=== PATIENT | female | born 1945 | race Caucasian/White ===

== ENCOUNTER → 2017-03-12 | Outpatient (CLI) | payer BC ==
[~2017-03-12] MED LIST: AMLODIPINE PO; AMOX875T PO; ASPCH81X PO; ASPI81TA28 PO; ATEN-175 PO; ATEN100T PO; ATEN50TA PO; AZIT-57 PO; BRIM0.2S OPR; CHOL100010 PO; CIME-56 PO; CIMETIDINE PO; DIPH25CA5 PO; KETO0.5S33 OPL; MAGNESIUM W/ZINC PO; MOME0.1C33 TOP; NATURAL LAXATIVE PO; OMEG10007 PO; POTA-74 PO; POTA10CA28 PO; PRED1SUS3 OPL; PRED1SUS3 OPR; SENNTAB23 PO; SODI5SOL4 OPR; TRIATAB3 PO; ZNTT/150 PO
--- NOTE | 2017-03-12 14:56 | MAMMOGRAPHY REPORT ---
BILATERAL DIGITAL SCREENING MAMMOGRAM WITH CAD: 03/12/2017 CLINICAL HISTORY: Routine screening. Patient has no complaints. TECHNIQUE: Current study was also evaluated with a Computer Aided Detection (CAD) system. Bilatera l CC and MLO views were obtained. COMPARISON: Comparison is made to exams dated: 03/11/2016 mammogram, 03/06/2015 mammogram, 03/05/2014 mammogram, 03/02/2013 mammogram, 02/29/2012 mammogram, and 02/25/2011 mammogram - [facility]. BREAST COMPOSITION: The tissue of both breasts is extremely dense, which lowers the sensitivity of mammography. FINDINGS: No suspicious masses, calcifications, or areas of architectural distortion are noted in e ither breast. There has been no significant interval change compared to prior exams. Linear scar ma rkers denote scars on bilateral anterior breasts. Scattered bilateral benign-appearing calcificatio ns are not significantly changed. Nodular asymmetry in the left medial breast on the cc view is sta ble dating back to at least the 2009 exam. IMPRESSION: ACR BI-RADS CATEGORY 2: BENIGN There is no mammographic evidence of malignancy. A 1 year screening mammogram is recommended. The p atient will receive written notification of the results. Approximately 10% of breast cancers are not detected with mammography. A negative mammographic repor t should not delay biopsy if a clinically suggestive mass is present. Camila Lorenzo M.D. /:03/12/2017 11:54:36 Auto Dismantler: Lexie William, [facility] letter sent: Normal 1/2 BI-RADS Code: ACR BI-RADS Category 2: Benign
== END | disposition home or self-care (01) ==
LOC: C.MAMM 09:30
PROVIDERS: ATTEND Internal Medicine Pulmonary Disease
DX: Z12.31 Encounter for screening mammogram for malignant neoplasm of breast (principal)

== ENCOUNTER → 2017-07-27 | Outpatient (CLI) | payer BC ==
[~2017-07-27] MED LIST changes: -ATEN-175 PO; -AZIT-57 PO; +BND25 PO; -CHOL100010 PO; -DIPH25CA5 PO; -MAGNESIUM W/ZINC PO; -NATURAL LAXATIVE PO; -OMEG10007 PO; -SENNTAB23 PO; -ZNTT/150 PO; +ZTHM250 PO
[2017-07-27 12:08] LABS: BASO % 0.2 %; BASO ABS # 0.02 K/uL (0-0.2); COMPLETE YES; EOS % 2.1 %; HEMATOCRIT 39.3 % (37-47); IG% 0.2 %; LYMPH % 31.1 %; LYMPH ABS # 2.52 K/uL (1.2-3.4); MEAN CELL VOLUME 87.1 fL (80-100); MEAN CORPUSCULAR HEMOGLOBIN 29.7 pg (25-34); MEAN CORPUSCULAR HGB CONC 34.1 g/dl (32-36); MEAN PLATELET VOLUME 10.3 fL (7.4-10.4); MONO % 7.4 %; PLATELET COUNT 259 K/uL (130-400); RED BLOOD COUNT 4.51 M/uL (4.2-5.4)
[2017-07-27 12:14] LABS: URINE APPEARANCE CLEAR (CLEAR); URINE BILIRUBIN NEG (NEG); URINE COLOR YELLOW; URINE NITRITE NEG (NEG); URINE PH 7.5 (4.5-7.5); URINE SPECIFIC GRAVITY 1.019 (1.000-1.030); UROBILINOGEN NEG (NEG)
[2017-07-27 12:26] LABS: MANUAL MICROSCOPIC REQUIRED? NO; REVIEW REQ? NO
[2017-07-27 12:27] LABS: ALT/SGPT 22 U/L (12-78); BLOOD UREA NITROGEN 16 mg/dl (7-18); BUN/CREATININE RATIO 20.4 (10-20); CARBON DIOXIDE 31 mmol/L (21-32); CHLORIDE 96 mmol/L (98-107); CHOLESTEROL 303 mg/dl (0-200); CREATININE 0.76 mg/dl (0.60-1.20); GLUCOSE 91 mg/dl (70-99); POTASSIUM 3.2 mmol/L (3.5-5.1); SODIUM 133 mmol/L (136-145); TRIGLYCERIDES 216 mg/dl (0-150); VERY LOW DENSITY LIPOPROT CALC 43 mg/dl
[2017-07-27 12:37] LABS: ALKALINE PHOSPHATASE 68 U/L (45-117); AST/SGOT 20 U/L (15-37); CHOLESTEROL/HDL RATIO 5.8; HDL CHOLESTEROL 52 mg/dl; LDL CHOLESTEROL CALCULATED 208 mg/dl
[2017-07-27 13:01] LABS: LYME DISEASE AB IGG NEG (NEG); LYME DISEASE AB IGM NEG (NEG)
--- NOTE | 2017-08-05 10:40 | CODING QUERY MEDICAL NECESSITY ---
SUPPORTING DIAGNOSIS NEEDED A supporting diagnosis is required for the test/procedure performed on this patient in order for us to be reimbursed by the patient's insurance. Please provide a supporting diagnosis for the following test/procedure listed below next to the test name along with your signature. *If there is no additional diagnosis for this patient that would support the following test/procedure please document that below next to the test/procedure. Test(s)/Procedure(s) that require a supporting diagnosis: * VITAMIN D, 25-HYDROXY DIAGNOSIS: Provider Signature: Date: Thank you Silvia Charlton [facility] Information Management Once completed, please kindly fax back to [phone] For questions please call [phone]
== END | disposition home or self-care (01) ==
LOC: C.LAB1850 10:40
PROVIDERS: ATTEND Internal Medicine Pulmonary Disease
DX: I10 Essential (primary) hypertension (principal); E78.5 Hyperlipidemia, unspecified; K21.9 Gastro-esophageal reflux disease without esophagitis; R10.13 Epigastric pain; R53.83 Other fatigue

== ENCOUNTER → 2017-08-18 | Outpatient (CLI) | payer BC ==
[~2017-08-18] MED LIST changes: -AMOX875T PO; -ASPI81TA28 PO; -ATEN50TA PO; -BRIM0.2S OPR; -CIME-56 PO; -KETO0.5S33 OPL; -POTA-74 PO; -PRED1SUS3 OPL; -PRED1SUS3 OPR; -SODI5SOL4 OPR; -ZTHM250 PO
[2017-08-18 12:49] LABS: BASO % 0.1 %; BASO ABS # 0.02 K/uL (0-0.2); COMPLETE YES; EOS % 0.7 %; HEMATOCRIT 37.4 % (37-47); IG% 0.1 %; LYMPH % 16.8 %; LYMPH ABS # 2.31 K/uL (1.2-3.4); MEAN CELL VOLUME 86.6 fL (80-100); MEAN CORPUSCULAR HEMOGLOBIN 29.9 pg (25-34); MEAN CORPUSCULAR HGB CONC 34.5 g/dl (32-36); MEAN PLATELET VOLUME 10.1 fL (7.4-10.4); MONO % 8.9 %; NEUT % 73.4 %; PLATELET COUNT 222 K/uL (130-400); RED BLOOD COUNT 4.32 M/uL (4.2-5.4); WHITE BLOOD COUNT 13.76 K/uL (4.8-10.8)
[2017-08-18 14:14] LABS: ALT/SGPT 18 U/L (12-78); AST/SGOT 10 U/L (15-37); BLOOD UREA NITROGEN 17 mg/dl (7-18); BUN/CREATININE RATIO 15.3 (10-20); CALCIUM 9.9 mg/dl (8.5-10.1); CARBON DIOXIDE 29 mmol/L (21-32); CHLORIDE 96 mmol/L (98-107); GLUCOSE 98 mg/dl (70-99); POTASSIUM 3.8 mmol/L (3.5-5.1); SODIUM 133 mmol/L (136-145)
[2017-08-18 14:16] LABS: ALB/GLOB RATIO 0.9 (0.9-2); ALKALINE PHOSPHATASE 66 U/L (45-117)
--- NOTE | 2017-08-18 14:33 | DIAGNOSTIC IMAGING REPORT ---
ABD/PELVIS ORAL CONT ONLY CLINICAL HISTORY: 71 years-old Female presenting with ACUTE DIVERTICULITIS, FEVER, PAIN, NAUSEA,. TECHNIQUE: Multidetector CT of the abdomen and pelvis was performed without the use of intravenous contrast. IV contrast: None. A dose lowering technique was used consistent with the principles of ALARA (as low as reasonably achievable). COMPARISON: 10/06/2016. CT DOSE (mGy.cm): The estimated cumulative dose is 368.17 mGy.cm. FINDINGS: Instructional Material Director topogram: Unremarkable. Lung bases: Minimal dependent changes likely atelectasis. Normal heart size. No pericardial or pleural effusion. Liver: Normal morphology. Multiple well-defined hypodensities unchanged from prior CT, likely hepatic cysts. Biliary: No gross biliary ductal dilatation allowing for noncontrast technique. Normal gallbladder. Pancreas: Mild parenchymal atrophy. Spleen: Normal noncontrast appearance. Adrenal glands: Normal noncontrast appearance. Kidneys and ureters: Normal. No hydronephrosis. Bladder: Normal. Pelvic organs: Uterus surgically absent. No adnexal masses. Bowel: Diverticulosis of the sigmoid colon with focal wall thickening and pericolonic inflammatory change at the junction of the descending and sigmoid colon. Soft tissue density extending out from the posterior aspect into the mesentery (series 3 image 287). No well-defined fluid collection. No bowel obstruction. Normal appendix. Peritoneal cavity: Retroperitoneal stranding in the left lower quadrant and extending into the extraperitoneal left pelvic sidewall. No free intraperitoneal gas or fluid. Lymph nodes: No gross lymphadenopathy allowing for noncontrast technique. Vasculature: Atherosclerosis of the normal caliber abdominal aorta. Abdominal wall: Normal. Musculoskeletal: Chondrocalcinosis of the pubic symphysis. Degenerative changes of the lumbar spine. IMPRESSION: 1. Findings most consistent with diverticulitis at the junction of the descending and sigmoid colon. Phlegmonous changes are apparent without a well-defined abscess formation. No CT evidence of eliceo perforation. Follow-up colonoscopy after treatment is recommended to exclude the possibility of an underlying neoplasm. No lymphadenopathy. Electronically signed by: Eliezer Reyes M.D. 08/18/2017 2:32 PM Dictated Date/Time: 08/18/2017 2:25 PM
== END ==
LOC: C.CTS 12:00
PROVIDERS: ATTEND Registered Nurse
DX: K57.92 Diverticulitis of intestine, part unspecified, without perforation or abscess without bleeding (principal)

== ENCOUNTER 2017-08-27 20:14 | Observation (INO) | payer BC, OTHER ==
[~2017-08-27] VITALS: Ht 154.9 cm; Wt 55.6 kg
[2017-08-27] MEDS ORDERED: FENTANYL CITRATE INJ 50 MCG/1 ML 2 ML VIAL IV STA (21:10)
[2017-08-27] MEDS ORDERED: SODIUM CHLORIDE 0.9% 1000ML 1,000 ML IV STA (21:10)
[2017-08-27] MEDS ORDERED: ONDANSETRON INJ 2 MG/ML 2 ML VIAL IV STA (21:10)
[2017-08-27] MEDS ORDERED: ASPIRIN 81 MG CHEW PO STA (21:10)
[2017-08-27] MEDS ORDERED: OPTIRAY 320 IV PRN (21:15)
[2017-08-27 21:19] LABS: BASO % 0.3 %; BASO ABS # 0.03 K/uL (0-0.2); COMPLETE YES; EOS % 1.4 %; HEMATOCRIT 35.5 % (37-47); IG% 0.3 %; LYMPH % 26.6 %; LYMPH ABS # 2.72 K/uL (1.2-3.4); MEAN CELL VOLUME 85.3 fL (80-100); MEAN CORPUSCULAR HEMOGLOBIN 28.8 pg (25-34); MEAN CORPUSCULAR HGB CONC 33.8 g/dl (32-36); MEAN PLATELET VOLUME 9.6 fL (7.4-10.4); MONO % 10.3 %; NEUT % 61.1 %; PLATELET COUNT 294 K/uL (130-400); RED BLOOD COUNT 4.16 M/uL (4.2-5.4); WHITE BLOOD COUNT 10.22 K/uL (4.8-10.8)
[2017-08-27 21:31] LABS: BLOOD UREA NITROGEN 16 mg/dl (7-18); BUN/CREATININE RATIO 12.3 (10-20); CALCIUM 9.5 mg/dl (8.5-10.1); CARBON DIOXIDE 32 mmol/L (21-32); CHLORIDE 100 mmol/L (98-107); GLUCOSE 93 mg/dl (70-99); POTASSIUM 3.4 mmol/L (3.5-5.1); SODIUM 137 mmol/L (136-145)
--- NOTE | 2017-08-27 21:50 | DIAGNOSTIC IMAGING REPORT ---
SINGLE VIEW CHEST CLINICAL HISTORY: Atypical chest pain. FINDINGS: An AP, portable, upright chest radiograph is compared to study dated 08/25/2012. The examination is degraded by portable technique and patient rotation. The heart is top normal for projection and there is atherosclerotic calcification of the thoracic aorta. Chronic residual thickening is similar to previous. There is left bibasilar atelectasis, left greater than right. No airspace consolidation is seen typical for pneumonia and there is no large pleural effusion. No pneumothorax is seen. The skeletal structures are osteopenic. The bony thorax is grossly intact. IMPRESSION: No acute cardiopulmonary abnormality. Electronically signed by: Jose Cruz Snyder M.D. 08/27/2017 9:49 PM Dictated Date/Time: 08/27/2017 9:48 PM
--- NOTE | 2017-08-27 22:15 | DIAGNOSTIC IMAGING REPORT ---
CT ANGIOGRAM OF THE CHEST CLINICAL HISTORY: Atypical chest pain. COMPARISON STUDY: Chest x-ray dated 08/27/2017. TECHNIQUE: Following the IV administration of 85 cc of Optiray 320, CT angiogram of the chest was performed from the upper abdomen to the thoracic inlet utilizing the pulmonary embolus protocol. Images are reviewed in the axial, sagittal, and coronal planes. 3-D MIPS images are created and assessed. IV contrast was administered without complication. A dose lowering technique was utilized adhering to the principles of ALARA. CT DOSE: 174.02 mGy.cm FINDINGS: Thyroid: Imaged portions of the thyroid gland are normal in size and attenuation. Thoracic aorta: There is atherosclerotic calcification of the thoracic aorta, with is normal in caliber and demonstrates standard 3-vessel arch anatomy. No dissection is seen. Pulmonary vasculature: The pulmonary trunk is normal in caliber. There are no filling defects identified in main, lobar, or segmental pulmonary branches to suggest pulmonary embolus. Heart: The heart is top normal in size and without pericardial effusion. Lungs and pleural spaces: The trachea and central airways are clear. There are trace pleural effusions. Patchy airspace consolidation is seen at the left lung base. Atelectasis is noted at the right lung base. Mediastinum: There is no mediastinal lymphadenopathy. Jessica: Clear. Axillae: There is no axillary lymphadenopathy. Upper abdomen: There is a tiny hiatal hernia. Scattered hepatic cysts measure up to 1.8 cm. Skeletal structures: The skeletal structures are osteopenic. Mild degenerative change is seen throughout the thoracic spine. A large hemangioma is noted in the body of T7. No lytic or blastic bony lesions are seen. IMPRESSION: 1. There is no evidence of pulmonary embolus in the main, lobar, or segmental pulmonary arteries. 2. Dependent patchy airspace consolidation at the left lung base likely represents pneumonia. Clinical correlation will be required and radiographic follow-up to resolution is recommended. 3. Trace pleural effusions. 4. Additional findings as above. Electronically signed by: Jose Cruz Snyder M.D. 08/27/2017 10:13 PM Dictated Date/Time: 08/27/2017 10:08 PM
[2017-08-27] MEDS ORDERED: PIPERACILLIN/TAZOBACTAM 4.5 GM/100ML D5W IV STA (22:19)
[2017-08-27] MEDS ORDERED: SODI5SOL4 OPR (22:29)
[2017-08-27] MEDS ORDERED: CIME-56 PO (22:29)
[2017-08-27] MEDS ORDERED: AMOX875T PO (22:29)
[2017-08-27] MEDS ORDERED: POTA-74 PO (22:29)
[2017-08-27] MEDS ORDERED: BRIM0.2S OPR (22:29)
[2017-08-27] MEDS ORDERED: KETO0.5S33 OPL (22:29)
[2017-08-27] MEDS ORDERED: PRED1SUS3 OPL (22:29)
[2017-08-27] MEDS ORDERED: PRED1SUS3 OPR (22:29)
[2017-08-27] MEDS ORDERED: ASPI81TA28 PO (22:29)
[2017-08-27] MEDS ORDERED: ATEN50TA PO (22:29)
[2017-08-28] VITALS (10 sets, daily range): BP systolic 121–165; BP diastolic 71–76; PULSE 59–84; TEMP 36.5–37.2; O2SAT 94–97; Ht 154.9 cm; Wt 55.6 kg
[2017-08-28] MEDS ORDERED: ONDANSETRON INJ 2 MG/ML 2 ML VIAL IV PRN
[2017-08-28] MEDS ORDERED: MoRPHine SULFATE 2 MG/ML CARP IV PRN
[2017-08-28] MEDS ORDERED: MAGNESIUM HYDROXIDE SUSP 30 ML UDC PO PRN
[2017-08-28] MEDS ORDERED: POLYETHYLENE (MIRALAX) 17 GM PACK PO PRN
[2017-08-28] MEDS ORDERED: ALUMINUM/MAGNESIUM/SIMETH (MAALOX MAX) 30 ML UDC PO PRN
[2017-08-28] MEDS ORDERED: ACETAMINOPHEN 325 MG TAB PO PRN
[2017-08-28] MEDS ORDERED: NITROGLYCERIN 0.4 MG SL PER TAB CHARGE SL PRN
--- NOTE | 2017-08-28 00:22 | EMERGENCY ROOM VISIT NOTE ---
History Report prepared by Jess: Salvador Butler Under the Supervision of: Dr. Darrick Jones D.O. First contact with patient: 20:54 Chief Complaint: CHEST PAIN Stated Complaint: CHEST PAIN Nursing Triage Summary: Patient ambulatory to triage for evaluation of chest pain that began last evening. Patient has been taking antacids since that time. Patient also took Advil 200mg about 1.5 hours ago. Patient reports intermittent nausea throughout the day with the pain. Patient reports that the pain is radiating straight through into her back, up into the left shoulder and down the left arm. Patient reports that the pain "is like a big cramp in my chest." "A couple of times I felt a little light headed. I was having a hard time getting my breath this evening. I have a sharp pain when I try to take a deep breath." Patient reports Wednesday and Wednesday night, having severe chest pains. History of Present Illness The patient is a 71 year old female who presents to the Emergency Room with complaints of intermittent, sharp, chest pain beginning four days ago. The patient states she was not doing much for the past few days because she is currently being treated for acute diverticulitis. She reports she is being treated with Augmentin and believes this is the cause for her symptoms. The patient notes her discomfort started last night when she was watching TV. She states it started in her right shoulder and then went down her arm. The patient report that her pain has been worsening since. She notes exertion does not change her discomfort, but breathing does increase her discomfort. The patient states she had a catheterization five year ago, and it was clean. She reports she has a history of hypertension and hyperlipidemia. The patient notes she usually exercises, and she does not experience these symptoms. Patient denies swelling of calves, recent trips, history of immobilization or recent surgery, prior history of DVT, hemoptysis, history of malignancy, history of smoking, cough, runny nose, sorethroat, any upper respiratory symptoms or control/ estrogen use Source of History: patient Onset: four days ago Position: chest Quality: sharp Timing: intermittent Modifying Factors (Worsening): breathing Note: Associated symptoms: right shoulder and arm pain Review of Systems See HPI for pertinent positives & negatives. A total of 10 systems reviewed and were otherwise negative. Past Medical & Surgical Medical Problems: (1) Chest pain (2) HTN (hypertension) (3) Stomach problems (4) Ulcer (5) Urinary problem Family History Cancer Heart disease Hypertension Social History Smoking Status: Never Smoker Smokeless Tobacco Use: No Alcohol Use: none Marital Status: Housing Status: lives with significant other Current/Historical Medications Scheduled Amoxicillin & Pot Clavulanate (Augmentin 875-125 mg), 1 TAB PO BID Aspirin (Aspirin Ec), 81 MG PO DAILY Atenolol (Tenormin), 25 MG PO DAILY Brimonidine Tartrate-Timolol M (Combigan), 1 DROP OPR QAM Cimetidine (Tagamet), 400 MG PO BID Ketorolac Tromethamine (Ophth) (Acular Oph), 1 DROP OPL BID Potassium Chloride (Potassium Chloride Er), 10 MEQ PO BID Prednisolone Acetate (Ophth) (Pred Forte 1% Oph), 1 DROP OPL BID Prednisolone Acetate (Ophth) (Pred Forte 1% Oph), 1 DROP OPR TID Sodium Chloride Hypertonic (Elle 128), 1 DROP OPR HS Triamterene/Hctz (Triamterene/Hctz 37.5-25MG), 1 TAB PO DAILY Scheduled PRN Diphenhydramine Hcl (Benadryl), 25 MG PO HS PRN for Sleep Allergies Coded Allergies: Ciprofloxacin (Verified Allergy, Intermediate, Nausea, weakness, 08/27/17) Codeine (Verified Allergy, Intermediate, Vomiting, 08/27/17) Statins (Verified Allergy, Intermediate, Hives, rash, 08/27/17) Physical Exam Vital Signs Date Time Temp Pulse Resp B/P (MAP) Pulse Ox O2 Delivery O2 Flow Rate FiO2 08/28/17 00:29 69 20 121/66 95 Room Air 08/27/17 22:43 69 20 147/65 96 Room Air 08/27/17 21:38 71 20 160/74 99 Room Air 08/27/17 20:23 98 Room Air 08/27/17 20:23 36.7 73 20 187/79 98 Room Air Physical Exam GENERAL: Sitting up in bed, alert, well appearing, well nourished, no distress, non-toxic EYE EXAM: normal conjunctiva OROPHARYNX: no exudate, no erythema, lips, buccal mucosa, and tongue normal and mucous membranes are moist NECK: supple, no nuchal rigidity, no adenopathy, non-tender LUNGS: Clear to auscultation. Normal chest wall mechanics HEART: no murmurs, S1 normal and S2 normal ABDOMEN: abdomen soft, non-tender, normo-active bowel sounds, no masses, no rebound or guarding. BACK: Back is symmetrical on inspection and there is no deformity, no midline tenderness, no CVA tenderness. SKIN: no rashes and no bruising UPPER EXTREMITIES: upper extremities are grossly normal. LOWER EXTREMITIES: No pitting edema. Calves are equal bilaterally. NEURO EXAM: Normal sensorium, cranial nerves II-XII grossly intact, normal speech, no gross weakness of arms, no gross weakness of legs. Medical Decision & Procedures ER Provider Diagnostic Interpretation: Radiology results as stated below per my review and the radiologist's interpretation: CT ANGIOGRAM OF THE CHEST CLINICAL HISTORY: Atypical chest pain. COMPARISON STUDY: Chest x-ray dated 08/27/2017. TECHNIQUE: Following the IV administration of 85 cc of Optiray 320, CT angiogram of the chest was performed from the upper abdomen to the thoracic inlet utilizing the pulmonary embolus protocol. Images are reviewed in the axial, sagittal, and coronal planes. 3-D MIPS images are created and assessed. IV contrast was administered without complication. A dose lowering technique was utilized adhering to the principles of ALARA. CT DOSE: 174.02 mGy.cm FINDINGS: Thyroid: Imaged portions of the thyroid gland are normal in size and attenuation. Thoracic aorta: There is atherosclerotic calcification of the thoracic aorta, with is normal in caliber and demonstrates standard 3-vessel arch anatomy. No dissection is seen. Pulmonary vasculature: The pulmonary trunk is normal in caliber. There are no filling defects identified in main, lobar, or segmental pulmonary branches to suggest pulmonary embolus. Heart: The heart is top normal in size and without pericardial effusion. Lungs and pleural spaces: The trachea and central airways are clear. There are trace pleural effusions. Patchy airspace consolidation is seen at the left lung base. Atelectasis is noted at the right lung base. Mediastinum: There is no mediastinal lymphadenopathy. Jessica: Clear. Axillae: There is no axillary lymphadenopathy. Upper abdomen: There is a tiny hiatal hernia. Scattered hepatic cysts measure up to 1.8 cm. Skeletal structures: The skeletal structures are osteopenic. Mild degenerative change is seen throughout the thoracic spine. A large hemangioma is noted in the body of T7. No lytic or blastic bony lesions are seen. IMPRESSION: 1. There is no evidence of pulmonary embolus in the main, lobar, or segmental pulmonary arteries. 2. Dependent patchy airspace consolidation at the left lung base likely represents pneumonia. Clinical correlation will be required and radiographic follow-up to resolution is recommended. 3. Trace pleural effusions. 4. Additional findings as above. Electronically signed by: Jose Cruz Snyder M.D. 08/27/2017 10:13 PM Dictated Date/Time: 08/27/2017 10:08 PM SINGLE VIEW CHEST CLINICAL HISTORY: Atypical chest pain. FINDINGS: An AP, portable, upright chest radiograph is compared to study dated 08/25/2012. The examination is degraded by portable technique and patient rotation. The heart is top normal for projection and there is atherosclerotic calcification of the thoracic aorta. Chronic residual thickening is similar to previous. There is left bibasilar atelectasis, left greater than right. No airspace consolidation is seen typical for pneumonia and there is no large pleural effusion. No pneumothorax is seen. The skeletal structures are osteopenic. The bony thorax is grossly intact. IMPRESSION: No acute cardiopulmonary abnormality. Electronically signed by: Jose Cruz Snyder M.D. 08/27/2017 9:49 PM Dictated Date/Time: 08/27/2017 9:48 PM Laboratory Results 08/27/17 20:45 Red Blood Count 4.16, Mean Corpuscular Volume 85.3, Mean Corpuscular Hemoglobin 28.8, Mean Corpuscular Hemoglobin Concent 33.8, Mean Platelet Volume 9.6, Neutrophils (%) (Auto) 61.1, Lymphocytes (%) (Auto) 26.6, Monocytes (%) (Auto) 10.3, Eosinophils (%) (Auto) 1.4, Basophils (%) (Auto) 0.3, Neutrophils # (Auto ) 6.25, Lymphocytes # (Auto) 2.72, Monocytes # (Auto) 1.05, Eosinophils # (Auto ) 0.14, Basophils # (Auto) 0.03 08/27/17 20:45 Test 08/27/17 20:45 08/28/17 00:44 White Blood Count 10.22 K/uL (4.8-10.8) Red Blood Count 4.16 M/uL (4.2-5.4) Hemoglobin 12.0 g/dL (12.0-16.0) Hematocrit 35.5 % (37-47) Mean Corpuscular Volume 85.3 fL (80-100) Mean Corpuscular Hemoglobin 28.8 pg (25-34) Mean Corpuscular Hemoglobin Concent 33.8 g/dl (32-36) Platelet Count 294 K/uL (130-400) Mean Platelet Volume 9.6 fL (7.4-10.4) Neutrophils (%) (Auto) 61.1 % Lymphocytes (%) (Auto) 26.6 % Monocytes (%) (Auto) 10.3 % Eosinophils (%) (Auto) 1.4 % Basophils (%) (Auto) 0.3 % Neutrophils # (Auto) 6.25 K/uL (1.4-6.5) Lymphocytes # (Auto) 2.72 K/uL (1.2-3.4) Monocytes # (Auto) 1.05 K/uL (0.11-0.59) Eosinophils # (Auto) 0.14 K/uL (0-0.5) Basophils # (Auto) 0.03 K/uL (0-0.2) RDW Standard Deviation 38.3 fL (36.4-46.3) RDW Coefficient of Variation 12.3 % (11.5-14.5) Immature Granulocyte % (Auto) 0.3 % Immature Granulocyte # (Auto) 0.03 K/uL (0.00-0.02) Anion Gap 6.0 mmol/L (3-11) Est Creatinine Clear Calc Drug Dose 31.6 ml/min Estimated GFR () 48.5 Estimated GFR (Non- 41.8 BUN/Creatinine Ratio 12.3 (10-20) Calcium Level 9.5 mg/dl (8.5-10.1) Total Creatine Kinase 48 U/L (26-192) Creatine Kinase MB < 0.5 ng/ml (0.5-3.6) Creatine Kinase MB Ratio (0-3.0) Laboratory results per my review. Medications Administered Medications (Trade) Dose Ordered Sig/Katie Route Start Time Stop Time Status Last Admin Dose Admin Sodium Chloride 1,000 ml @ 999 mls/hr Q1H1M STAT IV 08/27/17 21:10 08/27/17 22:13 DC 08/27/17 21:37 999 MLS/HR Ondansetron HCl (Zofran Inj) 4 mg NOW STAT IV 08/27/17 21:10 08/27/17 21:12 DC 08/27/17 21:29 4 MG Aspirin (Aspirin Chew) 324 mg NOW STAT PO 08/27/17 21:10 08/27/17 21:12 DC 08/27/17 21:29 324 MG Fentanyl Citrate (Fentanyl Inj) 50 mcg NOW STAT IV 08/27/17 21:10 08/27/17 21:12 DC 08/27/17 21:30 50 MCG Piperacillin Sod/ Tazobactam Sod (Zosyn Iv) 4.5 gm NOW STAT IV 08/27/17 22:19 08/27/17 22:20 DC 08/27/17 22:43 4.5 GM ECG Indication: chest pain Rate (beats per minute): 70 Rhythm: sinus rhythm Findings: nonspecific-ST abn (Inferior), Q waves (Inferior), other Comparison ECG Date: 09/24/2000 Change: no significant change ED Course ED COURSE: Vital signs were reviewed and showed hypertension. The patients medical record was reviewed The above diagnostic studies were performed and reviewed. ED treatments and interventions as stated above. 2100: The patient was evaluated in room C05. A complete history and physical examination was performed. 2109: Ordered Fentanyl Citrate 50mcg IV, Aspirin 324mg PO, Zofran Inj 4mg IV, Sodium Chloride 1000 ml @ 999 mls/hr IV 9: Ordered Piperacillin Sod/Tazobactam Sod 4.5gm IV 2221: Upon reevaluation, the patient is resting.I discussed my findings with the patient and she understands and agrees with the treatment plan. 2224: I discussed the patients case with Dr. Mansfield, [facility] Hospitalist. The patient will be evaluated for further treatment and care. Based on the patients age, coexisting illnesses, exam and lab findings the decision to treat as an inpatient was made. The patient remained stable while under my care. The patient will be evaluated for further management. Medical Decision Differential diagnoses includes but is not limited to acute coronary syndrome, myocardial infarction, pericarditis, pulmonary embolus, aortic dissection, pneumonia, pneumothorax, musculoskeletal, shingles, esophageal. Patient is a 71-year-old female who presents to ER for intermittent chest pain since this past Wednesday. She notes that associated with left arm pain, jaw pain and shortness of breath. Pain has been present since last night and has been worsening throughout today. She now has a pleuritic component to this. No history of any PEs. Does have a history of hyperlipidemia and hypertension. She was hypertensive upon arrival. Chest x-ray was unremarkable. EKG was nondiagnostic. Troponin was negative. CT PE was performed and showed no dissection but a small consolidation in the left lower lobe. She has no cough, runny nose or congestion to suggest pneumonia. I did cover her with antibiotics. She was given fentanyl and had improvement of her pain along with aspirin. Question if this is cardiac. Case was discussed with internal medicine and patient was admitted for further workup. Medication Reconcilliation Current Medication List: was personally reviewed by me Blood Pressure Screening Patient's blood pressure: Elevated blood pressure Blood pressure disposition: Elevated BP felt to be situational Consults Time Called: 2216 Consulting Physician: Dr. Mansfield, [facility] Hospitalist Returned Call: [phone] I discussed the patients case with Dr. Mansfield [facility] Hospitalist. The patient will be evaluated for further treatment and care. Impression Primary Impression: Chest pain Additional Impression: HTN (hypertension) Scribe Attestation The scribe's documentation has been prepared under my direction and personally reviewed by me in its entirety. I confirm that the note above accurately reflects all work, treatment, procedures, and medical decision making performed by me. Departure Information Dispostion Being Evaluated By Hospitalist Referrals Frantz Henao M.D. (PCP) Patient Instructions My [facility] Problem Qualifiers Primary Impression: Chest pain Chest pain type: unspecified Qualified Codes: R07.9 - Chest pain, unspecified Additional Impression: HTN (hypertension) Hypertension type: unspecified Qualified Codes: I10 - Essential (primary) hypertension
[2017-08-28] MEDS ORDERED: IV FLUIDS COMPLETED PRN (00:30)
--- NOTE | 2017-08-28 00:35 | History and Physical ---
History & Physical Date & Time of Service: Aug 28, 2017 at 00:08 Chief Complaint: Chest Pain Primary Care Physician: Frantz Henao M.D. History of Present Illness Source: patient 71 y/o F Hx HTN, HPL - presents with intermittent CP over 2-3 days which has been progressive in intensity. The pain is described as R sided, cramp-like, moderate to severe, accompanied by SOB and radiating into her R arm and jaw. Initial troponin is negative. EKG is not consistent with acute ischemia. The pt had a stress test and a catheterization over 5 years ago which did not show any significant disease. A CT chest was obtained in the ER - this revealed a LL lobe airspace consolidation which may be consistent with pneumonia. She does not have a fever , cough ot leukocytosis to indicate acute infection. The pt is currently being treated with Augmentin for acute diverticulitis - she does not have related symptoms and will complete her antibiotic course AM. Past Medical/Surgical History 1) HTN 2) Hyperlipidemia 3) Diverticulitis 4) GERD Family History Cancer Heart disease Hypertension Social History Smoking Status: Never Smoker Multi-Drug Resistant Organisms History of MDRO: No Allergies Coded Allergies: Ciprofloxacin (Verified Allergy, Intermediate, Nausea, weakness, 08/27/17) Codeine (Verified Allergy, Intermediate, Vomiting, 08/27/17) Statins (Verified Allergy, Intermediate, Hives, rash, 08/27/17) Home Medications Scheduled Amoxicillin & Pot Clavulanate (Augmentin 875-125 mg), 1 TAB PO BID Aspirin (Aspirin Ec), 81 MG PO DAILY Atenolol (Tenormin), 25 MG PO DAILY Brimonidine Tartrate-Timolol M (Combigan), 1 DROP OPR QAM Cimetidine (Tagamet), 400 MG PO BID Ketorolac Tromethamine (Ophth) (Acular Oph), 1 DROP OPL BID Potassium Chloride (Potassium Chloride Er), 10 MEQ PO BID Prednisolone Acetate (Ophth) (Pred Forte 1% Oph), 1 DROP OPL BID Prednisolone Acetate (Ophth) (Pred Forte 1% Oph), 1 DROP OPR TID Sodium Chloride Hypertonic (Elle 128), 1 DROP OPR HS Triamterene/Hctz (Triamterene/Hctz 37.5-25MG), 1 TAB PO DAILY Scheduled PRN Diphenhydramine Hcl (Benadryl), 25 MG PO HS PRN for Sleep Review of Systems Constitutional: No fever, No chills, No sweats Eyes: No worsening of vision, No eye pain ENT: No hearing loss Respiratory: + shortness of breath (occurs with CP), No cough, No sputum, No wheezing Cardiovascular: + chest pain, No orthopnea, No PND Abdomen: No pain, No nausea, No vomiting Musculoskeletal: No joint pain Genitourinary - Female: No dysuria, No hematuria Neurologic: No memory loss, No weakness Psychiatric: No depression symptoms Endocrine: No fatigue Hematologic / Lymphatic: No abnormal bleeding/bruising Integumentary: No rash Allergic / Immunologic: No environmental allergies Physical Exam Vital Signs Date Time Temp Pulse Resp B/P (MAP) Pulse Ox O2 Delivery O2 Flow Rate FiO2 08/27/17 22:43 69 20 147/65 96 Room Air 08/27/17 21:38 71 20 160/74 99 Room Air 08/27/17 20:23 98 Room Air 08/27/17 20:23 36.7 73 20 187/79 98 Room Air General Appearance: WD/WN, no apparent distress Head: normocephalic Eyes: normal inspection, EOMI ENT: normal ENT inspection, pharynx normal Neck: supple, no JVD Respiratory/Chest: chest non-tender, lungs clear, normal breath sounds Cardiovascular: regular rate, rhythm, no edema, no gallop Abdomen/GI: normal bowel sounds, non tender, soft Back: normal inspection, no CVA tenderness Extremities/Musculoskelatal: normal inspection, no calf tenderness, normal capillary refill, no pedal edema, normal range of motion 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, no motor/sensory deficits, alert, normal mood/affect, normal reflexes, oriented x 3 Skin: normal color, warm/dry, no rash Diagnostics Laboratory Results Results Past 24 Hours Test 08/27/17 20:45 Range/Units White Blood Count 10.22 4.8-10.8 K/uL Red Blood Count 4.16 4.2-5.4 M/uL Hemoglobin 12.0 12.0-16.0 g/dL Hematocrit 35.5 37-47 % Mean Corpuscular Volume 85.3 80-100 fL Mean Corpuscular Hemoglobin 28.8 25-34 pg Mean Corpuscular Hemoglobin Concent 33.8 32-36 g/dl Platelet Count 294 130-400 K/uL Mean Platelet Volume 9.6 7.4-10.4 fL Neutrophils (%) (Auto) 61.1 % Lymphocytes (%) (Auto) 26.6 % Monocytes (%) (Auto) 10.3 % Eosinophils (%) (Auto) 1.4 % Basophils (%) (Auto) 0.3 % Neutrophils # (Auto) 6.25 1.4-6.5 K/uL Lymphocytes # (Auto) 2.72 1.2-3.4 K/uL Monocytes # (Auto) 1.05 0.11-0.59 K/uL Eosinophils # (Auto) 0.14 0-0.5 K/uL Basophils # (Auto) 0.03 0-0.2 K/uL RDW Standard Deviation 38.3 36.4-46.3 fL RDW Coefficient of Variation 12.3 11.5-14.5 % Immature Granulocyte % (Auto) 0.3 % Immature Granulocyte # (Auto) 0.03 0.00-0.02 K/uL Sodium Level 137 136-145 mmol/L Potassium Level 3.4 3.5-5.1 mmol/L Chloride Level 100 98-107 mmol/L Carbon Dioxide Level 32 21-32 mmol/L Anion Gap 6.0 3-11 mmol/L Blood Urea Nitrogen 16 7-18 mg/dl Creatinine 1.30 0.60-1.20 mg/dl Est Creatinine Clear Calc Drug Dose 31.6 ml/min Estimated GFR () 48.5 Estimated GFR (Non- 41.8 BUN/Creatinine Ratio 12.3 10-20 Random Glucose 93 70-99 mg/dl Calcium Level 9.5 8.5-10.1 mg/dl Total Creatine Kinase 48 26-192 U/L Creatine Kinase MB < 0.5 0.5-3.6 ng/ml Creatine Kinase MB Ratio 0-3.0 Troponin I < 0.015 0-0.045 ng/ml Normal EKG Impression Assessment and Plan 71 y/o F Hx HTN, HPL - presents with intermittent CP over 2-3 days which has been progressive in intensity. The pain is described as R sided, cramp-like, moderate to severe, accompanied by SOB and radiating into her R arm and jaw. Initial troponin is negative. EKG is not consistent with acute ischemia. The pt had a stress test and a catheterization over 5 years ago which did not show any significant disease. A CT chest was obtained in the ER - this revealed a LL lobe airspace consolidation which may be consistent with pneumonia. She does not have a fever , cough ot leukocytosis to indicate acute infection. The pt is currently being treated with Augmentin for acute diverticulitis - she does not have related symptoms and will complete her antibiotic course AM. 1) CP - concerning for unstable angina. Pt will be assigned to telemetry - serial enzymes ordered, placed on ASA, NTG/morphine PRN. She is Statin- intolerant. HR may not tolerate a Bblocker. Due to convincing symptoms, her box chipper is consulted. 2) HTN - cont Triamterine/HCTZ. 3) Recent Diverticulitis - will have completed a course of Augmentin 08/28 - no related symptoms currently 4) LLL consolidation - No clinical evidence of acute PNM - additionally, the pt is completing a course of Augmentin - acute aspiration may be in the differential - presently the findings are of unclear significance and we may need to consult pulmonary if her CP is deemed noncardiac and her symptoms persist. Full code - Heparin prophylaxis Total time for this admit including review of labs, meds, imaging, EKG - discussion with pt and ER attending - 40 min Level of Care Telemetry Resuscitation Status FULL RESUSCITATION VTE Prophylaxis VTE Risk Assessment Done? Y/N: Yes Risk Level: Low Given or contraindicated: Unfractionated heparin SQ
[2017-08-28] MEDS ORDERED: NSS + 20MEQ KCL 1000ML 1,000 ML IV SCH (02:30)
[2017-08-28] MEDS ORDERED: PNEUMOCOCCAL POLYSACCHARIDES 25 MCG/0.5 ML VIAL/SYR IM. ONE (03:00)
[2017-08-28] MEDS ORDERED: INFLUENZA VIRUS QUAD VACCINE 0.5 ML SYR IM. ONE (03:00)
[2017-08-28] MEDS ORDERED: PNEUMOCOCCAL ADMINISTRATION CHARGE ONE (03:00)
[2017-08-28] MEDS ORDERED: INFLUENZA ADMINISTRATION CHARGE ONE ×2 (03:00→03:30)
[2017-08-28] MEDS ORDERED: INFLUENZA VACCINE HIGH DOSE 65+ 0.5 ML SYR IM. ONE (03:30)
[2017-08-28] MEDS ORDERED: AMOXICILLIN/CLAVULANATE TAB 875 MG TAB PO ONE (08:00)
[2017-08-28 08:42] LABS: BUN/CREATININE RATIO 16.7 (10-20); CALCIUM 9.1 mg/dl (8.5-10.1); CREATININE 0.88 mg/dl (0.60-1.20); MAGNESIUM 2.1 mg/dl (1.8-2.4); POTASSIUM 3.9 mmol/L (3.5-5.1)
[2017-08-28] MEDS ORDERED: PrednisoLONE ACET 1% OP SUSP 5 ML BTL OPL SCH (09:00)
[2017-08-28] MEDS ORDERED: NON-FORMULARY MEDICATION (Brimonidine Tartrate-Timolol M (Combigan) 1 DROP) OPR SCH (09:00)
[2017-08-28] MEDS: KETOROLAC 0.5% OP SOLN 3 ML BTL OPL SCH ×2 (09:00→20:40)
[2017-08-28] MEDS: PrednisoLONE ACET 1% OP SUSP 5 ML BTL OPR SCH ×3 (09:00→20:40)
[2017-08-28] MEDS: ASPIRIN 81 MG ECTAB PO SCH (09:17)
[2017-08-28] MEDS: TRIAMTERENE/HCTZ 37.5/25MG TAB PO SCH (09:18)
[2017-08-28] MEDS: CIMETIDINE 400 MG TAB PO SCH ×2 (09:18→20:41)
[2017-08-28] MEDS: POTASSIUM CHLORIDE 10 MEQ TABCR PO SCH ×2 (09:18→20:42)
--- NOTE | 2017-08-28 11:23 | CARDIOLOGY CONSULTATION ---
DATE OF CONSULTATION: 08/28/2017 DATE OF CONSULTATION: 08/28/2017 REQUESTING: Dr. Mansfield. CARDIAC CATH LAB MANAGER: Remy Campbell D.O., [facility]. REASON FOR CONSULTATION: Chest discomfort. Dear Dr. Mansfield, Thank you for requesting cardiology consultation on Parisa with regards to her chest discomfort. As you know, she is a very pleasant 71-year-old female who was recently diagnosed with acute diverticulitis. She was placed on Augmentin for that. She notes she has had significant difficulties with medications in the past. Since she started Augmentin she noted on Wednesday of this past week that she started having chest discomfort and back discomfort. She also has had some nausea. She has a history of esophageal reflux disease as well. On Wednesday and yesterday she started taking significant amounts of medicine for dyspepsia without any significant improvement. She notes yesterday the pain became severe. It is worse with a deep breath. It radiates to her left shoulder. There is no associated diaphoresis. She has had some nausea with it. She notes lying flat makes is slightly worse. Sitting up does make it slightly better. Activity has not changed it in any way. She has been able to climb the stairs without worsening of the chest discomfort. She has been able to walk on the flat without any worsening chest discomfort and she notes she just felt terrible all week. She denies any fevers or chills or night sweats since she was diagnosed with diverticulitis and placed on antibiotics. The pain was so severe with a deep breath yesterday she came to the Emergency Room. CAT scan of her chest was negative for pulmonary embolism. She notes with pain medication and switching her antibiotic she has had significant relief in her symptoms this morning. She feels well. She still has some scapular discomfort but the chest discomfort with a deep breath has significantly improved. She does note that twisting or removing also made the discomfort worse. She denies any current episodes of palpitation. She has had short brief episodes lasting 60-90 seconds throughout her life occasionally waking her from sleep. She also carries a diagnosis of mitral valve prolapse. She denies any presyncope, syncope, lower extremity edema, symptoms of claudication. She denies a cough, bleeding, bruising, dark stools or black stools. She has had no recent upper respiratory tract infections. The rest of review of systems otherwise negative. PAST MEDICAL HISTORY: 1. Hypertension. 2. History of an ulcer. 3. Esophageal reflux disease. 4. Diverticulitis. 5. Hyperlipidemia. FAMILY HISTORY: Positive for cancer, heart disease and hypertension. SOCIAL HISTORY: She is . She is a lifetime nonsmoker. ALLERGIES: CIPROFLOXACIN, CODEINE AND STATINS. OUTPATIENT MEDICATIONS: Reviewed including atenolol 25 mg daily, triamterene/hydrochlorothiazide and aspirin. PHYSICAL EXAMINATION: GENERAL: She is awake, alert, oriented x3. She is in no acute distress. She is a well-appearing female who looks younger than her stated age. VITAL SIGNS: Her heart rate 64, respirations 18, blood pressure 121/71, pulse ox 97% on room air. HEAD, EYES, EARS, NOSE, AND THROAT: 2+ carotid upstrokes, no evidence of carotid bruits. Jugular venous pressure appeared normal. Sclerae is anicteric. Hearing is normal. LUNGS: Clear to auscultation bilaterally with the exception of decreased breath sounds in the left base. No rales, rhonchi or wheezing. HEART: Regular rate and rhythm. No appreciable murmurs, rubs or gallops. ABDOMEN: Soft, nontender, nondistended. Positive bowel sounds. EXTREMITIES: No clubbing, cyanosis or edema. PSYCHIATRIC: Affect appeared appropriate. NEUROLOGIC: She is awake, alert and oriented x3. DIAGNOSTIC STUDIES: CT of her chest, no evidence of pulmonary embolism, patchy airspace consolidation in the left base likely representing pneumonia, trace pleural effusions. LABORATORY STUDIES: White count of 10.22, hemoglobin 12. Sodium 137, potassium 3.4, BUN 16, creatinine 1.3. With fluids it is down to 15 and 0.88. Her troponins are negative x3. EKG normal sinus rhythm, normal ECG, no acute ST-T changes. There is a loss of R-wave in V2-V3. This may just be related to lead placement. IMPRESSIONS: Chest discomfort. It does not sound cardiac in etiology, especially in light of the fact that she has had pain since Wednesday and her troponins are all negative. There are no acute ST-T changes on her EKG to suggest acute coronary syndrome or coronary ischemia. The fact that it is worse with a deep breath makes me think that this is pleuritic and although she does not have a fever or cough she definitely has decreased breath sounds in that left lung base and has a CT of her chest that is concerning for pneumonia. This may be exacerbating symptoms which sound like pleuritic chest pain. There is a component of her symptoms that are worse lying flat and better sitting up, although clinically I do not think she has pericarditis as there is no pericardial rub and her EKG is not consistent with pericarditis either. Her carotid upstrokes were brisk. I do not think this represents cardiac etiology to her symptoms, especially in light of the fact that she has been able to climb a flight of stairs and walk without worsening her symptoms. I will leave it up to the primary service with regards to whether they think she has pneumonia or not and also the need for adequate pain control with her pleuritic pain in light of the fact that she has significant esophageal reflux disease. Thank you for allowing me to participate in her care.
[2017-08-28] MEDS ORDERED: AZITHROMYCIN 250 MG TAB PO ONE (12:45)
--- NOTE | 2017-08-28 12:45 | Progress Note ---
Subjective Date of Service: Aug 28, 2017. Subjective Pt evaluation today including: conversation w/ patient, conversation w/ family , physical exam, chart review, lab review, review of studies, conversation w/ data processing consultant, review of inpatient medication list Feeling okay, no cough or sputum, however feels chest pain in left when deep breathing, Problem List Medical Problems: (1) HTN (hypertension) Status: Chronic Review of Systems Constitutional: + weakness, + fatigue, No fever, No chills, No sweats, No weight loss, No problem reported Eyes: No worsening of vision, No eye pain, No redness, No discharge, No diplopia ENT: No hearing loss, No unusual epistaxis, No nasal symptoms, No sore throat, No tinnitus, No dental problems, No trouble swallowing Respiratory: No cough, No sputum, No wheezing, No shortness of breath, No dyspnea on exertion, No dyspnea at rest, No hemoptysis Cardiac: No chest pain, No orthopnea, No PND, No edema, No claudication, No palpitations Abdomen: No pain, No nausea, No vomiting, No diarrhea, No constipation Musculoskeletal: No joint pain, No muscle pain, No swelling, No calf pain Female : No dysuria, No urinary frequency, No hematuria, No incontinence, No abnormal vaginal bleeding, No vaginal discharge Neurologic: No memory loss, No paralysis, No weakness, No numbness/tingling, No vertigo, No balance problems Psychiatric: No depression symptoms, No anhedonism, No anxiety, No insomnia, No substance abuse Heme: No abnormal bleeding/bruising, No clotting problems, No swollen lymph nodes, No night sweats Endo: No fatigue, No excessive thirst, No excessive urination Skin: No rash, No itch, No new/changing skin lesions, No color change, No bleeding Objective Vital Signs Date Time Temp Pulse Resp B/P (MAP) Pulse Ox O2 Delivery O2 Flow Rate FiO2 08/28/17 11:31 36.5 63 20 150/72 (98) 96 Room Air 08/28/17 08:00 97 Room Air 08/28/17 06:49 36.7 64 18 121/71 (88) 97 Room Air 08/28/17 04:00 95 Room Air 08/28/17 01:45 36.7 59 16 165/76 95 Room Air 08/28/17 01:14 65 20 133/64 95 Room Air 08/28/17 00:29 69 20 121/66 95 Room Air 08/27/17 22:43 69 20 147/65 96 Room Air 08/27/17 21:38 71 20 160/74 99 Room Air 08/27/17 20:23 98 Room Air 08/27/17 20:23 36.7 73 20 187/79 98 Room Air Physical Exam General Appearance: WD/WN, no apparent distress, + thin Eyes: normal inspection, PERRL, EOMI, sclerae normal ENT: normal ENT inspection, hearing grossly normal, pharynx normal Neck: supple, no adenopathy, thyroid normal, no JVD, no carotid bruits, trachea midline Respiratory/Chest: chest non-tender, normal breath sounds, no respiratory distress, no accessory muscle use, + decreased breath sounds Cardiovascular: regular rate, rhythm, no edema, no gallop, no JVD, no murmur Abdomen: normal bowel sounds, non tender, soft, no organomegaly, no pulsatile mass Extremities: normal range of motion, non-tender, normal inspection, no pedal edema, no calf tenderness, normal capillary refill, pelvis stable 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, no motor/sensory deficits, alert, normal mood/affect, oriented x 3 Skin: normal color, warm/dry, no rash Lymphatic: no adenopathy Laboratory Results Last 24 Hours Test 08/27/17 20:45 08/28/17 00:44 08/28/17 07:03 White Blood Count 10.22 K/uL Red Blood Count 4.16 M/uL Hemoglobin 12.0 g/dL Hematocrit 35.5 % Mean Corpuscular Volume 85.3 fL Mean Corpuscular Hemoglobin 28.8 pg Mean Corpuscular Hemoglobin Concent 33.8 g/dl Platelet Count 294 K/uL Mean Platelet Volume 9.6 fL Neutrophils (%) (Auto) 61.1 % Lymphocytes (%) (Auto) 26.6 % Monocytes (%) (Auto) 10.3 % Eosinophils (%) (Auto) 1.4 % Basophils (%) (Auto) 0.3 % Neutrophils # (Auto) 6.25 K/uL Lymphocytes # (Auto) 2.72 K/uL Monocytes # (Auto) 1.05 K/uL Eosinophils # (Auto) 0.14 K/uL Basophils # (Auto) 0.03 K/uL RDW Standard Deviation 38.3 fL RDW Coefficient of Variation 12.3 % Immature Granulocyte % (Auto) 0.3 % Immature Granulocyte # (Auto) 0.03 K/uL Sodium Level 137 mmol/L 140 mmol/L Potassium Level 3.4 mmol/L 3.9 mmol/L Chloride Level 100 mmol/L 104 mmol/L Carbon Dioxide Level 32 mmol/L 31 mmol/L Anion Gap 6.0 mmol/L 5.0 mmol/L Blood Urea Nitrogen 16 mg/dl 15 mg/dl Creatinine 1.30 mg/dl 0.88 mg/dl Est Creatinine Clear Calc Drug Dose 31.6 ml/min 45.5 ml/min Estimated GFR () 48.5 77.7 Estimated GFR (Non- 41.8 67.0 BUN/Creatinine Ratio 12.3 16.7 Random Glucose 93 mg/dl 93 mg/dl Calcium Level 9.5 mg/dl 9.1 mg/dl Total Creatine Kinase 48 U/L Creatine Kinase MB < 0.5 ng/ml Creatine Kinase MB Ratio Troponin I < 0.015 ng/ml < 0.015 ng/ml < 0.015 ng/ml Hepatitis C Antibody Screen NEG Prothrombin Time 11.0 SECONDS Prothromb Time International Ratio 1.0 Magnesium Level 2.1 mg/dl Assessment and Plan 71 y/o F Hx HTN, HPL - presents with intermittent CP over 2-3 days which has been progressive in intensity. The pain is described as R sided, cramp-like, moderate to severe, accompanied by SOB and radiating into her R arm and jaw. Initial troponin is negative. EKG is not consistent with acute ischemia. The pt had a stress test and a catheterization over 5 years ago which did not show any significant disease. A CT chest was obtained in the ER - this revealed a LL lobe airspace consolidation which may be consistent with pneumonia. She does not have a fever , cough ot leukocytosis to indicate acute infection. The pt is currently being treated with Augmentin for acute diverticulitis - she does not have related symptoms and will complete her antibiotic course AM. CP - concerning for unstable angina upon admission, feel it is atypical chest pain Has rule out PE , CE and troponin was negative 3 sets radio broadcaster saw patient, not sound cardiac in etiology, no acute ST-T changes on her EKG to suggest acute coronary syndrome or coronary ischemia, Patient can follow-up with primary radio broadcaster and further evaluation, such as stress test Primary radio broadcaster if needed Left lower lung possible pneumonia per CT evaluation with patchy infiltration, she has chest pain when inhale the air in the left side My theory is patient possible has pneumonia however the symptom was covered when she was on Augmentin for diverticulitis Therefore we will treat for pneumonia, will encourage to continue Augmentin, add azithromycin, patient has been on Augmentin for 10 days, HTN - stable cont Triamterine/HCTZ. Recent Diverticulitis - will have completed a course of Augmentin 08/28 - no related symptoms currently Full code - Heparin prophylaxis Discussed with patient and about her condition and care plan, encourage up and walk and preparing going home, discontinue IV fluid Continued [facility] stay due to: home environment unsafe for pt Discharge planning: home
[2017-08-28] MEDS: HEPARIN SOD 5000 UNIT/0.5 ML CARP SQ SCH ×2 (13:15→20:40)
[2017-08-28] MEDS ORDERED: SODIUM CHLORIDE 5% OP SOLN 15 ML BTL OPR SCH (21:00)
[2017-08-29 03:39] VITALS: BP 133/70; PULSE 60; TEMP 36.5; O2SAT 95
[2017-08-29] MEDS: HEPARIN SOD 5000 UNIT/0.5 ML CARP SQ SCH ×2 (06:00→13:30)
[2017-08-29 06:38] LABS: BUN/CREATININE RATIO 16.1 (10-20); CALCIUM 9.7 mg/dl (8.5-10.1); CREATININE 0.87 mg/dl (0.60-1.20); POTASSIUM 3.5 mmol/L (3.5-5.1)
[2017-08-29] MEDS: KETOROLAC 0.5% OP SOLN 3 ML BTL OPL SCH (07:23)
[2017-08-29] MEDS: PrednisoLONE ACET 1% OP SUSP 5 ML BTL OPR SCH ×2 (07:23→13:30)
[2017-08-29 07:29] VITALS: BP 133/81; PULSE 65; TEMP 36.5; O2SAT 94
[2017-08-29 08:00] VITALS: O2SAT 94
[2017-08-29] MEDS ORDERED: AZITHROMYCIN 250 MG TAB PO SCH (09:00)
[2017-08-29] MEDS: CIMETIDINE 400 MG TAB PO SCH (09:09)
[2017-08-29] MEDS: TRIAMTERENE/HCTZ 37.5/25MG TAB PO SCH (09:10)
[2017-08-29] MEDS: POTASSIUM CHLORIDE 10 MEQ TABCR PO SCH (09:10)
[2017-08-29] MEDS: ASPIRIN 81 MG ECTAB PO SCH (10:09)
[2017-08-29] MEDS ORDERED: ZTHM250 PO (10:29)
--- NOTE | 2017-08-29 11:21 | Discharge Instructions ---
Discharge Instructions Date of Service Aug 29, 2017. Admission Reason for Admission: Chest Pain Discharge Discharge Diagnosis / Problem: left lung pneumonia Discharge Goals Goal(s): Decrease discomfort, Improve function, Increase independence, Improve disease control, Improve nutritional status, Learn about illness, Diagnostic testing, Therapeutic intervention, Prevent Disease Progression, Specific goals Activity Recommendations Activity Limitations: resume your previous activity . Instructions / Follow-Up Instructions / Follow-Up You have intermittent chest pain, likely atypical chest pain , likely from pneumonia However you had stress test and a catheterization over 5 years ago recommend you to follow up with your full stack web developer in 1-2 week You have pneumonia likely commended acquired , you need to continue azithromycin for 3 days You have recent acute diverticulitis, you have completed antibiotic course - you need to follow up with your primary care physician in 1 week, - take medication as instructed, never overdose or any misuse, or take with alcohol, because misuse of medicine may cause organ damage or , call your primary care physician if have questions of medicaitons. - call your primary care physician OR go to local emergency room if has any fever/chill, chest pain, shortness of breathing, nausea/vomiting/abdominal pain , facial droop/slurry speech/local weakness, or if has any questions. - fall precaution - diet as instructed - you need to follow up with your subspecialist, such as full stack web developer in 1-2 week - you should understand that it is important to follow up the above instruction , and "not following the above instruction" may cause delayed or missed care of your medical conditions which may cause permanent organ damage and even . Current Hospital Diet Patient's current hospital diet: AHA Diet (Heart Healthy) Discharge Diet Recommended Diet: AHA Diet (Heart Healthy) Pending Studies Studies pending at discharge: no Laboratory Results Lipid Panel Test 07/27/17 10:49 Range/Units Triglycerides Level 216 H 0-150 mg/dl Cholesterol Level 303 H 0-200 mg/dl HDL Cholesterol 52 mg/dl Cholesterol/HDL Ratio 5.8 LDL Cholesterol, Calculated 208 mg/dl Medical Emergencies . Who to Call and When: Medical Emergencies: If at any time you feel your situation is an emergency, please call 911 immediately. . Non-Emergent Contact Non-Emergency issues call your: Primary Care Provider, Diecast Machine Operator . . "Provider Documentation" section prepared by Rashid Cassidy. . VTE Core Measure Inpt VTE Proph given/why not?: Unfractionated heparin SQ
--- NOTE | 2017-08-29 11:31 | Discharge Summary ---
Discharge Summary Date of Service Aug 29, 2017. Discharge Summary Admission Date: Aug 28, 2017 at 00:03 Discharge Date: Aug 29, 2017 Principal Diagnosis: possible community acquired pneumonia Problems/Secondary Diagnoses: (1) HTN (hypertension) Status: Chronic Hospital Course 71 y/o F Hx HTN, HPL - presents with intermittent CP over 2-3 days which has been progressive in intensity. The pain is described as R sided, cramp-like, moderate to severe, accompanied by SOB and radiating into her R arm and jaw. Initial troponin is negative. EKG is not consistent with acute ischemia. The pt had a stress test and a catheterization over 5 years ago which did not show any significant disease. A CT chest was obtained in the ER - this revealed a LL lobe airspace consolidation which may be consistent with pneumonia. She does not have a fever , cough ot leukocytosis to indicate acute infection. The pt is currently being treated with Augmentin for acute diverticulitis - she does not have related symptoms and will complete her antibiotic course yesterday CP - concerning for unstable angina upon admission, feel it is atypical chest pain Has rule out PE , CE and troponin was negative 3 sets butcher supervisor saw patient, not sound cardiac in etiology, no acute ST-T changes on her EKG to suggest acute coronary syndrome or coronary ischemia, Patient can follow-up with primary butcher supervisor and further evaluation, such as stress test Primary butcher supervisor if needed Left lower lung possible pneumonia per CT evaluation with patchy infiltration, she has chest pain when inhale the air in the left side My theory is patient possible has pneumonia however the symptom was covered when she was on Augmentin for diverticulitis Therefore we will treat for pneumonia, no need to continue Augmentin, has azithromycin yesterday and today, need to continue for 3 days more Patient reported the left side chest pain when deep breathing has totally gone today HTN - stable cont Triamterine/HCTZ. Recent Diverticulitis - will have completed a course of Augmentin 08/28 - no related symptoms currently Full code - Heparin prophylaxis Discussed with patient and about her condition and care plan, Patient will be discharged home in stable condition nstructions / Follow-Up You have intermittent chest pain, likely atypical chest pain , likely from pneumonia However you had stress test and a catheterization over 5 years ago recommend you to follow up with your butcher supervisor in 1-2 week You have pneumonia likely commended acquired , you need to continue azithromycin for 3 days You have recent acute diverticulitis, you have completed antibiotic course - you need to follow up with your primary care physician in 1 week, - take medication as instructed, never overdose or any misuse, or take with alcohol, because misuse of medicine may cause organ damage or , call your primary care physician if have questions of medicaitons. - call your primary care physician OR go to local emergency room if has any fever/chill, chest pain, shortness of breathing, nausea/vomiting/abdominal pain , facial droop/slurry speech/local weakness, or if has any questions. - fall precaution - diet as instructed - you need to follow up with your subspecialist, such as butcher supervisor in 1-2 week - you should understand that it is important to follow up the above instruction , and "not following the above instruction" may cause delayed or missed care of your medical conditions which may cause permanent organ damage and even . Total Time Spent: Less than 30 minutes This includes examination of the patient, discharge planning, medication reconciliation, and communication with other providers. Discharge Instructions Please refer to the electronic Patient Visit Report (Discharge Instructions) for additional information. Additional Copies To Crescencio Aparicio M.D.; Frantz Henao M.D.
[2017-08-29 11:35] VITALS: BP 135/63; PULSE 58; TEMP 36.6; O2SAT 97
[2017-08-29 11:50] VITALS: BP 135/63; PULSE 58; TEMP 36.6; O2SAT 97
== END 2017-08-29 13:41 | disposition home or self-care (01) ==
LOC: C.EDB 20:16 → C.MED 08-28 00:03 → ENRESERV 08-28 00:08 → C.MED 08-28 06:38
PROVIDERS: ADMIT Internal Medicine; ATTEND Hospitalist
DX: I10 Essential (primary) hypertension (principal); R07.89 Other chest pain; E78.5 Hyperlipidemia, unspecified; K57.92 Diverticulitis of intestine, part unspecified, without perforation or abscess without bleeding; K21.9 Gastro-esophageal reflux disease without esophagitis; Z80.3 Family history of malignant neoplasm of breast; Z82.49 Family history of ischemic heart disease and other diseases of the circulatory system; Z88.1 Allergy status to other antibiotic agents; Z88.5 Allergy status to narcotic agent; Z79.82 Long term (current) use of aspirin

== ENCOUNTER 2017-12-02 05:20 | Inpatient (IN) | payer BC, OTHER ==
[2017-11-26 11:33] VITALS: BMI 23.0
--- NOTE | 2017-11-26 12:09 | PAT Medication Instructions ---
Service Date Nov 26, 2017. Current Home Medication List Aspirin (Aspirin Ec), 81 MG PO QPM Atenolol (Tenormin), 50 MG PO QPM Cholecalciferol (Vitamin D), 1 TAB PO BID Cimetidine (Tagamet), 400 MG PO BID PRN for PRN Diphenhydramine Hcl (Benadryl Allergy), 1 CAP PO HS PRN for Sleep Fish Oil ([place]-3), 1 CAP PO BID Magnesium-Zinc (Magnesium/Chelated Zinc), 1 TAB PO QPM Potassium Chloride (Potassium Chloride Er), 10 MEQ PO BID Ranitidine (Zantac), 1-2 TAB PO BID PRN for Indigestion Sennosides (Senokot), 1 TAB PO HS PRN for Constipation Sennosides-Docusate Sodium (Stool Softener), 2 TAB PO HS Triamterene/Hctz (Triamterene/Hctz 37.5-25MG), 1 TAB PO QPM Medication Instructions For Your Scheduled Surgery -Contact your surgeon for instructions for: Aspirin (Aspirin Ec), 81 MG PO QPM - Hold the following medications starting today: Fish Oil ([place]-3), 1 CAP PO BID - Hold the following medications the night before surgery: Triamterene/Hctz (Triamterene/Hctz 37.5-25MG), 1 TAB PO QPM - Hold the following medications the morning of surgery: Cholecalciferol (Vitamin D), 1 TAB PO BID Sennosides (Senokot), 1 TAB PO HS PRN for Constipation Potassium Chloride (Potassium Chloride Er), 10 MEQ PO BID - Take the following medications the morning of surgery with a sip of water: Cimetidine (Tagamet), 400 MG PO BID PRN for PRN (if needed) Ranitidine (Zantac), 1-2 TAB PO BID PRN for Indigestion (if needed) - Take the following medications as scheduled the night before surgery: Atenolol (Tenormin), 50 MG PO QPM Cimetidine (Tagamet), 400 MG PO BID PRN for PRN (if needed) Ranitidine (Zantac), 1-2 TAB PO BID PRN for Indigestion (if needed) Sennosides-Docusate Sodium (Stool Softener), 2 TAB PO HS Sennosides (Senokot), 1 TAB PO HS PRN for Constipation (if needed) Diphenhydramine Hcl (Benadryl Allergy), 1 CAP PO HS PRN for Sleep (if needed) Magnesium-Zinc (Magnesium/Chelated Zinc), 1 TAB PO QPM Potassium Chloride (Potassium Chloride Er), 10 MEQ PO BID If you have any questions please call us at [phone] or [phone] or [phone]
--- NOTE | 2017-11-26 12:44 | DIAGNOSTIC IMAGING REPORT ---
CHEST 2 VIEWS ROUTINE CLINICAL HISTORY: Preoperative chest COMPARISON STUDY: 08/27/2017 FINDINGS: The cardiac and mediastinal contours are normal. There is no evidence of focal pulmonary consolidation. There is no evidence of failure. No pleural effusions are visualized.[ IMPRESSION: No active disease in the chest. Electronically signed by: Ken Last M.D. 11/26/2017 12:42 PM Dictated Date/Time: 11/26/2017 12:42 PM
[2017-11-26 12:51] LABS: BASO % 0.5 %; BASO ABS # 0.03 K/uL (0-0.2); EOS % 2.6 %; EOS ABS # 0.15 K/uL (0-0.5); HEMATOCRIT 37.1 % (37-47); HEMOGLOBIN 12.8 g/dL (12.0-16.0); IG# 0.01 K/uL (0.00-0.02); LYMPH % 37.1 %; LYMPH ABS # 2.15 K/uL (1.2-3.4); MEAN CELL VOLUME 86.9 fL (80-100); MEAN CORPUSCULAR HGB CONC 34.5 g/dl (32-36); MEAN PLATELET VOLUME 10.5 fL (7.4-10.4); MONO % 8.8 %; MONO ABS # 0.51 K/uL (0.11-0.59); NEUT % 50.8 %; NEUT ABS # 2.94 K/uL (1.4-6.5); PLATELET COUNT 219 K/uL (130-400); RED CELL DISTRIBUTION WIDTH CV 12.8 % (11.5-14.5); RED CELL DISTRIBUTION WIDTH SD 41.1 fL (36.4-46.3); WHITE BLOOD COUNT 5.79 K/uL (4.8-10.8)
[2017-11-26 13:32] LABS: CREATININE 0.83 mg/dl (0.60-1.20)
[2017-11-26 13:33] LABS: CALCIUM 9.9 mg/dl (8.5-10.1); POTASSIUM 3.7 mmol/L (3.5-5.1)
[~2017-12-02] VITALS: Ht 154.9 cm; Wt 56.4 kg
[2017-12-02] VITALS (9 sets, daily range): BP systolic 100–134; BP diastolic 57–72; PULSE 53–91; TEMP 36.3–37; O2SAT 96–100
[~2017-12-02 05:20] MED LIST changes: -AMLODIPINE PO; -ASPCH81X PO; +ASPI81TA28 PO; +ATEN-175 PO; -ATEN100T PO; -BND25 PO; +CHOL100010 PO; +CIME-56 PO; -CIMETIDINE PO; +DIPH25CA65 PO; +MAGN1TAB28 PO; -MOME0.1C33 TOP; +OMEG10007 PO; +POTA-74 PO; -POTA10CA28 PO; +SENN-63 PO; +SENNTAB23 PO; +ZNTT/150 PO
[2017-12-02] MEDS ORDERED: DIPH25CA65 PO (05:51)
[2017-12-02] MEDS ORDERED: MELATAB2 PO (05:51)
[2017-12-02] MEDS ORDERED: LACTATED RINGER'S 1000ML 500 ML IV SCH (06:00)
[2017-12-02] MEDS ORDERED: FENTANYL CITRATE INJ 50 MCG/1 ML 2 ML VIAL ONE ×2 (06:56→08:50)
[2017-12-02] MEDS ORDERED: CISATRACURIUM BESYLATE IV SOLN 2 MG/ML 10 ML VIAL ONE (06:56)
[2017-12-02] MEDS ORDERED: LIDOCAINE HCL 2% 2 ML VIAL (20MG/ML) ONE (06:56)
[2017-12-02] MEDS ORDERED: PROPOFOL IV EMULSION 10 MG/ML 20 ML VIAL IV ONE ×2 (06:56→11:16)
[2017-12-02] MEDS ORDERED: HYDROmorphone INJ 2 MG/ML SYR/VIAL ONE ×2 (06:56→12:01)
[2017-12-02] MEDS ORDERED: SUCCINYLCHOLINE CHLORIDE 20 MG/ML 10 ML VIAL IV ONE (06:56)
[2017-12-02] MEDS ORDERED: BUPIVACAINE 0.5 % 5 MG/1 ML MPF 30ML VIAL ONE (07:06)
--- NOTE | 2017-12-02 07:39 | History & Physical Bridge Note ---
H&P Re-Evaluation Bridge Note: I have examined the patient, reviewed the History & Physical and in the interval since the performance of the History & Physical I have noted the following changes of clinical significance: No changes noted at bedside all questions answered
[2017-12-02] MEDS ORDERED: CEFOXITIN SOD 1 GM VIAL ONE (08:24)
[2017-12-02] MEDS ORDERED: EpHEDrine SULFATE 50MG/5ML SYR ONE (08:41)
[2017-12-02] MEDS ORDERED: FLUMAZENIL 0.1 MG/1 ML 10 ML VIAL IV PRN (09:30)
[2017-12-02] MEDS ORDERED: ATROPINE SULFATE 0.1 MG/ML 5ML SYR IV PRN (09:30)
[2017-12-02] MEDS ORDERED: NALOXONE HCL 0.4 MG/1 ML VIAL/CARP IV PRN ×2 (09:30→11:45)
[2017-12-02] MEDS ORDERED: PROMETHAZINE HCL INJ 12.5 MG in SODIUM CHLORIDE 0.9% 50ML 50 ML IV PRN (09:30)
[2017-12-02] MEDS ORDERED: LABETALOL HCL IV 5 MG/ML 20ML IV PRN (09:30)
[2017-12-02] MEDS ORDERED: EpHEDrine SULFATE INJ 50 MG/ML AMP IV PRN (09:30)
[2017-12-02] MEDS ORDERED: HYDROmorphone INJ 1 MG/ML SYR IV PRN (09:30)
[2017-12-02] MEDS ORDERED: ONDANSETRON INJ 2 MG/ML 2 ML VIAL IV PRN (09:30)
[2017-12-02] MEDS ORDERED: NEOSTIGMINE METHYLSULFATE 5 MG/5 ML SYR ONE (10:49)
[2017-12-02] MEDS ORDERED: GLYCOPYRROLATE INJ 0.2 MG/ML VIAL ONE (10:49)
[2017-12-02] MEDS ORDERED: DEXAMETHASONE SOD INJ 4 MG/ML VIAL ONE (10:50)
[2017-12-02] MEDS ORDERED: ONDANSETRON INJ 2 MG/ML 2 ML VIAL ONE (10:50)
[2017-12-02] MEDS ORDERED: SURGICEL ABSORB HEMOSTAT 2IN X 14IN TOP ONE (11:03)
--- NOTE | 2017-12-02 11:30 | [facility] Post Operative Brief Note ---
Immediate Operative Summary Operative Date Dec 02, 2017. Pre-Operative Diagnosis Diverticular Stricture Post-Operative Diagnosis Diverticular Stricture Procedure(s) Performed Laparoscopic Assisted Colon Resection Surgeon Dr. John Llamas Spool Maker Surgeon(s) Johny Moore PA-C Estimated Blood Loss 150cc Findings as preop Specimens Microbiology: Urine Cath - routine culture and sensitivity Permanent: A.) Portion of Sigmoid Colon Drains 1/4 francisco j sub cut 19 suresh per stab
[2017-12-02] MEDS ORDERED: CIMETIDINE 400 MG TAB PO PRN (11:45)
[2017-12-02] MEDS ORDERED: RANITIDINE HCL 150 MG TAB PO PRN (11:45)
[2017-12-02] MEDS ORDERED: ACETAMINOPHEN IV 100 ML IV PRN (11:45)
[2017-12-02] MEDS ORDERED: MoRPHine SULFATE 1 MG/ML 50 ML PCA CASS ONE (12:01)
--- NOTE | 2017-12-02 12:45 | Anesthesiology Progress Note ---
Anesthesia Post Op Note Date & Time Dec 02, 2017 at 12:45 Vital Signs Pain Intensity: 6 Vital Signs Past 12 Hours Date Time Temp Pulse Resp B/P (MAP) Pulse Ox O2 Delivery O2 Flow Rate FiO2 12/02/17 12:40 48 14 123/53 100 Nasal Cannula 3 12/02/17 12:30 52 14 109/48 100 Oxymask 3 12/02/17 12:20 55 14 117/69 100 Oxymask 5 12/02/17 12:10 64 16 107/51 100 Oxymask 5 12/02/17 12:00 65 16 109/54 100 Oxymask 10 12/02/17 11:53 36.7 71 12 92/45 100 Oxymask 10 12/02/17 06:00 36.6 61 18 129/62 100 Room Air Notes Mental Status: alert / awake / arousable, participated in evaluation Pt Amnestic to Procedure: Yes Nausea / Vomiting: adequately controlled Pain: adequately controlled Airway Patency, RR, SpO2: stable & adequate BP & HR: stable & adequate Hydration State: stable & adequate Anesthetic Complications: no major complications apparent
[2017-12-02] MEDS: MoRPHine SULFATE 1 MG/ML 50 ML PCA CASS IV PRN ×3 (13:08→22:49)
[2017-12-02] MEDS: LACTATED RINGER'S 1000ML 1,000 ML IV SCH ×2 (13:36→19:46)
[2017-12-02] MEDS: SODIUM CHLORIDE 0.9% 1000ML 1,000 ML IV SCH (13:36)
--- NOTE | 2017-12-02 14:01 | OPERATIVE REPORT ---
DATE OF OPERATION: 12/02/2017 PREOPERATIVE DIAGNOSIS: Diverticular stricture. POSTOPERATIVE DIAGNOSIS: Same. PROCEDURE: Laparoscopic assisted sigmoid colon resection with primary side-to-end anastomosis, lysis of abdominal adhesions. SURGEON: Dr. Llamas. HYDROLOGICAL TECHNICAL OFFICER: Severo Moore PA-C. SUMMARY: This is a 72-year-old female who has recently had a colonoscopy that showed unable to go through the colonic stricture with a regular scope. According to the report dictated it seemed like pediatric scope went through the area and the colon was visualized. Recommendations are to repeat colonoscopy in approximately 1 year. Discussed this with the patient and the patient felt that she was told that she needed more complete colonoscopy after her resection. Having said this, the patient's abdomen was prepped with Betadine scrubbing solution and properly draped. We placed in lithotomy position. Devlin catheter was inserted. Systemic antibiotics was given. I made a small incision supraumbilically sufficient enough to place a 5 mm trocar after Veress needle insufflated. The camera was inserted. We visualized the pelvic area. The omentum was draped down in that area, placed the patient in Trendelenburg position and then we were able to free up as much as possible the omentum and the colon, but off the pelvic area we could see the distal descending colon but down in that area the small bowel was strictly adherent to what appeared to be the bladder and deep into the bladder and also what it turned out to be distal sigmoid colon. We at this time placed 5 mm right trocar and a 5 mm left trocar in. We mobilized the white line of Toldt laterally all the way up almost to the splenic flexure sufficient mobility was obtained. We then dissected out down towards the pelvic brim and further down. We dissected and resected as much of the lysis of adhesion from the small bowel that was strictly adherent to the mesentery down onto the bladder area. We freed this up pretty completely but still down in the pelvic area was very hard to find a good plane of dissection as the tissue was scarred in. At this point, I elected to place 3 mm right lower quadrant port and we mobilized the area further staying away from the ureter on the left side. At this point, I elected then to make a small incision supraumbilically midline sufficient enough to enter the abdomen. The Bookwalter retractor was inserted. At this point we then continued dissection of the sigmoid colon actually the stricture was way down into the pelvic area. We divided the mesentery to the sigmoid colon and ligated with 2-0 silk. We then were all the way down freed that up to the bladder very hard plane of dissection between the two but we were able to manipulate and elevate the whole sigmoid colon out of the pelvis. We could feel the area of induration and below that appeared to be normal. We freed up also some adhesions of the small bowel and returned everything into the abdomen, pretty much freeing up the pelvic area. We then dissected further and left gutter identified the ureter and we were well away from any injury to it. We followed it almost down to the bladder. We used a line of resection, used a right angle intestinal clamp, 1 on the distal sigmoid rectum divided and removed the specimen. Proximally, we used a JUANCARLOS stapler in an area that felt grossly normal in texture. The area was then irrigated copiously. There was some oozing appreciated from the raw surface on the bladder. With the specimen removed, we were able then to run the small bowel in the area that had been involved and there was no injury of any problem and we took out the small bowel completely out of the pelvis. We then oversewed the proximal line of resection with 3-0 interrupted silk suture. We placed anastomosis in the the side of the colon and the distal sigmoid rectal area with 3-0 silk outer layer, 3-0 chromic inner layer. The anastomosis was checked for patency, tension free. The area was irrigated. There was some oozing still appreciated from the raw surface. We placed some Surgicel in that area. I elected to drain the area with 19 Sam drain that we brought in through the 3 mm right lower quadrant port site, we enlarged this slightly and placed in the pelvis and attached to skin edges with 2-0 silk suture. We also closed the abdomen using #1 chromic for the peritoneum and interrupted #1 PDS interrupted for the fascia. Subcutaneous tissue was not closed. Skin edges approximated with harman. We did put a quarter inch Yan drain in the wound. The trocar sites were closed just with the harman. The procedure was tolerated well by the patient. Estimated blood loss approximately 150 mL. The patient was taken to recovery room in good condition. I attest to the content of the Intraoperative Record and any orders documented therein. Any exception s are noted below.
[2017-12-02] MEDS: CEFOXITIN IV 2,000 MG in DEXTROSE 5% 50ML 50 ML IV SCH ×2 (14:10→19:49)
[2017-12-02] MEDS ORDERED: INFLUENZA ADMINISTRATION CHARGE ONE (15:00)
[2017-12-02] MEDS ORDERED: INFLUENZA VIRUS QUAD VACCINE 0.5 ML SYR IM. ONE (15:15)
[2017-12-02] MEDS ORDERED: PNEUMOCOCCAL ADMINISTRATION CHARGE ONE (15:15)
[2017-12-02] MEDS ORDERED: PNEUMOCOCCAL POLYSACCHARIDES 25 MCG/0.5 ML VIAL/SYR IM. ONE (15:15)
[2017-12-02 15:45] LABS: INR 1.1 (0.9-1.1)
[2017-12-02] MEDS: ONDANSETRON INJ 2 MG/ML 2 ML VIAL IV PRN (16:05)
[2017-12-02] MEDS: HEPARIN SOD 5000 UNIT/0.5 ML CARP SQ SCH (19:52)
[2017-12-03] MEDS: CEFOXITIN IV 2,000 MG in DEXTROSE 5% 50ML 50 ML IV SCH (01:43)
[2017-12-03] MEDS: LACTATED RINGER'S 1000ML 1,000 ML IV SCH ×3 (03:18→22:32)
[2017-12-03 03:19] VITALS: BP 117/55; PULSE 74; TEMP 37; O2SAT 96
[2017-12-03 07:00] LABS: HEMATOCRIT 26.2 % (37-47); HEMOGLOBIN 9.2 g/dL (12.0-16.0); IG# 0.01 K/uL (0.00-0.02); LYMPH % 14.7 %; LYMPH ABS # 1.25 K/uL (1.2-3.4); MEAN CELL VOLUME 85.3 fL (80-100); MEAN CORPUSCULAR HGB CONC 35.1 g/dl (32-36); MEAN PLATELET VOLUME 10.3 fL (7.4-10.4); MONO % 16.6 %; MONO ABS # 1.41 K/uL (0.11-0.59); NEUT % 68.6 %; NEUT ABS # 5.81 K/uL (1.4-6.5); PLATELET COUNT 173 K/uL (130-400); RED CELL DISTRIBUTION WIDTH CV 12.8 % (11.5-14.5); RED CELL DISTRIBUTION WIDTH SD 39.5 fL (36.4-46.3); WHITE BLOOD COUNT 8.48 K/uL (4.8-10.8)
--- NOTE | 2017-12-03 07:00 | SURGERY PROGRESS NOTE ---
DATE: 12/03/2017 Parisa's first postoperative day status post laparoscopic assisted sigmoid colon resection. She is alert, coherent, resting comfortable. Intraoperative findings were discussed with the patient. Her last vitals showed a temperature of 37, pulse 74, respirations 15, blood pressure was 117/55. I&O, she had 1,100 mL of urine overnight. Laboratory is pending this morning. The abdomen is softly distended, it is nontender. The dressings are intact with minimal Michael-Johnson drainage, which is serous lightly serosanguineous. At this point, we will increase her oral intake and discontinue the Devlin and increase her activity.
[2017-12-03 07:10] VITALS: BP 126/65; PULSE 67; TEMP 37.4; O2SAT 94
[2017-12-03] MEDS: MoRPHine SULFATE 1 MG/ML 50 ML PCA CASS IV PRN ×3 (07:18→23:12)
[2017-12-03 07:27] LABS: CALCIUM 8.8 mg/dl (8.5-10.1); CREATININE 0.72 mg/dl (0.60-1.20); POTASSIUM 3.7 mmol/L (3.5-5.1)
--- NOTE | 2017-12-03 07:55 | Anesthesiology Progress Note ---
Anesthesia Post Op Note Date & Time Dec 03, 2017 at 07:53 Vital Signs Vital Signs Past 12 Hours Date Time Temp Pulse Resp B/P (MAP) Pulse Ox O2 Delivery O2 Flow Rate FiO2 12/03/17 07:10 37.4 67 17 126/65 (85) 94 Room Air 12/03/17 03:19 37.0 74 15 117/55 (75) 96 Room Air 12/02/17 23:20 Room Air 12/02/17 23:19 37.0 74 16 110/64 (79) 96 Room Air 12/02/17 21:28 76 134/66 (88) 12/02/17 19:55 36.8 91 16 119/59 (79) 98 Room Air Notes Mental Status: alert / awake / arousable, participated in evaluation Pt Amnestic to Procedure: Yes Nausea / Vomiting: adequately controlled Pain: adequately controlled Airway Patency, RR, SpO2: stable & adequate BP & HR: stable & adequate Hydration State: stable & adequate Anesthetic Complications: no major complications apparent
[2017-12-03] MEDS: HEPARIN SOD 5000 UNIT/0.5 ML CARP SQ SCH ×2 (08:50→20:00)
[2017-12-03 12:00] VITALS: BP 117/68; PULSE 86; TEMP 36.8; O2SAT 94
[2017-12-03] MEDS: SODIUM CHLORIDE 0.9% 1000ML 1,000 ML IV SCH (13:00)
[2017-12-03 14:54] VITALS: BP 125/67; PULSE 70; TEMP 36.7; O2SAT 97
[2017-12-03 17:22] VITALS: Ht 154.9 cm; Wt 56.4 kg
[2017-12-03 20:39] VITALS: BP 129/64; PULSE 71
[2017-12-03] MEDS: TRIAMTERENE/HCTZ 37.5/25MG TAB PO SCH ×2 (20:40→20:46)
[2017-12-03] MEDS: ASPIRIN 81 MG ECTAB PO SCH (21:28)
[2017-12-03 23:01] VITALS: BP 135/66; PULSE 70; TEMP 37.2; O2SAT 94
[2017-12-04 03:36] VITALS: BP 132/61; PULSE 74; TEMP 36.9; O2SAT 93
[2017-12-04] MEDS: MoRPHine SULFATE 1 MG/ML 50 ML PCA CASS IV PRN ×3 (06:58→22:57)
[2017-12-04] MEDS: HEPARIN SOD 5000 UNIT/0.5 ML CARP SQ SCH ×2 (07:02→20:00)
[2017-12-04 07:24] LABS: BASO % 0.3 %; BASO ABS # 0.02 K/uL (0-0.2); EOS % 0.5 %; EOS ABS # 0.04 K/uL (0-0.5); HEMATOCRIT 24.9 % (37-47); HEMOGLOBIN 8.6 g/dL (12.0-16.0); IG# 0.02 K/uL (0.00-0.02); LYMPH % 27.6 %; LYMPH ABS # 2.07 K/uL (1.2-3.4); MEAN CELL VOLUME 87.7 fL (80-100); MEAN CORPUSCULAR HEMOGLOBIN 30.3 pg (25-34); MEAN CORPUSCULAR HGB CONC 34.5 g/dl (32-36); MEAN PLATELET VOLUME 10.6 fL (7.4-10.4); MONO % 11.9 %; MONO ABS # 0.89 K/uL (0.11-0.59); NEUT % 59.4 %; NEUT ABS # 4.47 K/uL (1.4-6.5); PLATELET COUNT 168 K/uL (130-400); RED CELL DISTRIBUTION WIDTH SD 42.3 fL (36.4-46.3); WHITE BLOOD COUNT 7.51 K/uL (4.8-10.8)
[2017-12-04] MEDS: LACTATED RINGER'S 1000ML 1,000 ML IV SCH ×2 (07:28→18:38)
[2017-12-04] MEDS: TRIAMTERENE/HCTZ 37.5/25MG TAB PO SCH (07:28)
[2017-12-04 07:41] VITALS: BP 135/66; PULSE 68; TEMP 37; O2SAT 94
[2017-12-04 08:03] LABS: CALCIUM 8.8 mg/dl (8.5-10.1); CREATININE 0.5 mg/dl (0.60-1.20)
--- NOTE | 2017-12-04 08:16 | SURGERY PROGRESS NOTE ---
DATE: 12/04/2017 Parisa is resting comfortably. She has been up and around. She does not feel lightheaded. She had a fairly good day yesterday. Her last vitals showed a temperature of 36.9, pulse 74, respirations 16, blood pressure 132/61, O2 sats 93 on room air. Her I&O, she had 1400 mL of urine overnight. The Sam drainage was 150 yesterday, 85 overnight. It is serous, slightly sanguineous. Laboratory pugh, her hemoglobin is down to about 8.6 and I think this is a factor between dilutional and intraoperative loss. Her chemistries are pending this morning. The abdomen is completely benign. There is minimal drainage in the suprapubic incision. At this point, we will advance her diet slowly and increase her activity. We will repeat a hemoglobin. There is no reason to transfuse her at this time.
[2017-12-04] MEDS: SODIUM CHLORIDE 0.9% 1000ML 1,000 ML IV SCH (11:04)
[2017-12-04 15:09] VITALS: BP 135/68; PULSE 68; TEMP 37; O2SAT 94
[2017-12-04 19:43] VITALS: BP 107/63; PULSE 84; TEMP 37; O2SAT 96
[2017-12-04] MEDS: ASPIRIN 81 MG ECTAB PO SCH (20:32)
[2017-12-04 22:50] VITALS: BP 145/75; PULSE 73; TEMP 36.9; O2SAT 96
[2017-12-05 03:55] VITALS: BP 135/66; PULSE 73; TEMP 36.6; O2SAT 93
[2017-12-05] MEDS: LACTATED RINGER'S 1000ML 1,000 ML IV SCH (04:10)
[2017-12-05] MEDS: ONDANSETRON INJ 2 MG/ML 2 ML VIAL IV PRN ×3 (04:14→20:17)
[2017-12-05 06:44] LABS: BASO % 0.3 %; BASO ABS # 0.03 K/uL (0-0.2); EOS % 1.5 %; EOS ABS # 0.14 K/uL (0-0.5); HEMATOCRIT 28.4 % (37-47); HEMOGLOBIN 9.8 g/dL (12.0-16.0); IG# 0.02 K/uL (0.00-0.02); LYMPH % 20.3 %; LYMPH ABS # 1.85 K/uL (1.2-3.4); MEAN CELL VOLUME 86.6 fL (80-100); MEAN CORPUSCULAR HEMOGLOBIN 29.9 pg (25-34); MEAN CORPUSCULAR HGB CONC 34.5 g/dl (32-36); MEAN PLATELET VOLUME 10.5 fL (7.4-10.4); MONO % 11.9 %; MONO ABS # 1.08 K/uL (0.11-0.59); NEUT % 65.8 %; NEUT ABS # 5.99 K/uL (1.4-6.5); PLATELET COUNT 213 K/uL (130-400); RED CELL DISTRIBUTION WIDTH CV 12.5 % (11.5-14.5); RED CELL DISTRIBUTION WIDTH SD 40.2 fL (36.4-46.3); WHITE BLOOD COUNT 9.11 K/uL (4.8-10.8)
[2017-12-05] MEDS: HEPARIN SOD 5000 UNIT/0.5 ML CARP SQ SCH ×2 (06:50→20:00)
[2017-12-05] MEDS: MoRPHine SULFATE 1 MG/ML 50 ML PCA CASS IV PRN ×4 (06:58→23:13)
[2017-12-05 07:13] LABS: CALCIUM 8.9 mg/dl (8.5-10.1); CREATININE 0.49 mg/dl (0.60-1.20); POTASSIUM 2.6 mmol/L (3.5-5.1)
[2017-12-05] MEDS: TRIAMTERENE/HCTZ 37.5/25MG TAB PO SCH (07:19)
[2017-12-05] MEDS: POTASSIUM CHLORIDE 20 MEQ TABCR PO SCH ×2 (07:20→16:25)
[2017-12-05 07:21] VITALS: BP 127/69; PULSE 86; TEMP 36.9; O2SAT 94
[2017-12-05] MEDS: SODIUM CHLOR 0.45% + 20MEQ KCL 1,000 ML IV SCH ×2 (10:30→23:40)
--- NOTE | 2017-12-05 11:25 | SURGERY PROGRESS NOTE ---
DATE: 12/05/2017 SUBJECTIVE: Parisa is doing well except during the night, she had excruciating pain, cramping in nature, required IV sedation and analgesics. This morning, she feels a little bit better. Associated with this, she was also nauseated. Her last vitals showed a temperature of 36.9, pulse is 86, respirations 17, blood pressure 127/69, O2 sats 94 on room air. I&O, she had 2100 out yesterday urine output. The Sam drainage apparently became a little bit disconnected overnight. Actually it was pulled out. It was 135 serosanguineous. I removed it this morning. I also removed the Yan drain in the lower midline incision subcutaneously. Her abdomen is softly distended. She has generalized guarding. Laboratory pugh, this morning, her white count normal. There is no left shift. Her hemoglobin is up to 9.8 as we suspect is what has been partially dilutional in nature. Her potassium is down to 2.6 this morning; yesterday it was 3.0. I noted early this morning, it was not back yesterday when I was making rounds. We did start potassium chloride 20 p.o. b.i.d. We will go ahead and increase also potassium, her IV and change her IV fluids around. Her BUN is 5, creatinine is 0.49. Overall, she seems to be progressing well. We will correct her electrolytes and actually increase her activity. She has had no flatus yet, but as stated, she felt a lot of rumbling and cramping, and most likely, she will pass some gas today. ROSALINE
[2017-12-05] MEDS: SODIUM CHLORIDE 0.9% 1000ML 1,000 ML IV SCH (11:42)
[2017-12-05] MEDS ORDERED: PROMETHAZINE HCL INJ 25 MG in SODIUM CHLORIDE 0.9% 50ML 50 ML IV PRN (14:15)
[2017-12-05 15:01] VITALS: BP 138/72; PULSE 77; TEMP 36.7; O2SAT 97
[2017-12-05 16:34] LABS: CALCIUM 8.7 mg/dl (8.5-10.1); CREATININE 0.54 mg/dl (0.60-1.20)
[2017-12-05 16:35] LABS: POTASSIUM 3.1 mmol/L (3.5-5.1)
[2017-12-05 19:03] VITALS: BP 158/84; PULSE 85; TEMP 36.5; O2SAT 93
[2017-12-05 20:29] VITALS: BP 153/80; PULSE 73
[2017-12-05] MEDS: ASPIRIN 81 MG ECTAB PO SCH (20:31)
[2017-12-05 23:15] VITALS: BP 145/77; PULSE 82; TEMP 36.9; O2SAT 96
[2017-12-06 03:17] VITALS: BP 130/74; PULSE 72; TEMP 36.8; O2SAT 94
[2017-12-06 04:48] LABS: BASO % 0.1 %; BASO ABS # 0.01 K/uL (0-0.2); EOS % 2.5 %; EOS ABS # 0.18 K/uL (0-0.5); HEMATOCRIT 24.4 % (37-47); HEMOGLOBIN 8.5 g/dL (12.0-16.0); LYMPH % 21.4 %; LYMPH ABS # 1.51 K/uL (1.2-3.4); MEAN CELL VOLUME 85.6 fL (80-100); MEAN CORPUSCULAR HEMOGLOBIN 29.8 pg (25-34); MEAN CORPUSCULAR HGB CONC 34.8 g/dl (32-36); MEAN PLATELET VOLUME 9.5 fL (7.4-10.4); MONO % 11.8 %; MONO ABS # 0.83 K/uL (0.11-0.59); NEUT % 64.2 %; NEUT ABS # 4.53 K/uL (1.4-6.5); PLATELET COUNT 188 K/uL (130-400); RED CELL DISTRIBUTION WIDTH CV 12.4 % (11.5-14.5); RED CELL DISTRIBUTION WIDTH SD 39.1 fL (36.4-46.3); WHITE BLOOD COUNT 7.06 K/uL (4.8-10.8)
[2017-12-06 05:06] LABS: CALCIUM 8.5 mg/dl (8.5-10.1); CREATININE 0.56 mg/dl (0.60-1.20); POTASSIUM 3.3 mmol/L (3.5-5.1)
[2017-12-06] MEDS: MoRPHine SULFATE 1 MG/ML 50 ML PCA CASS IV PRN (06:57)
[2017-12-06] MEDS ORDERED: TRAMADOL HCL 50 MG TAB PO PRN ×2 (07:30)
[2017-12-06 07:41] VITALS: BP 132/71; PULSE 71; TEMP 36.7; O2SAT 95
--- NOTE | 2017-12-06 08:17 | SURGERY PROGRESS NOTE ---
DATE: 12/06/2017 SUBJECTIVE: Parisa is postoperative day status post laparoscopic assisted sigmoid colon resection. She feels much better than she had yesterday. Yesterday morning, she had some abdominal cramping, but that subsided. I think that may have been all related to her hypokalemia. She has moved her bowels and she feels much better this morning. Her last vitals showed a temperature of 36.8, pulse 72, respirations 14, blood pressure 130/70, O2 sats 94 on room air. I&O have not recorded urine output. The abdomen is soft. She has some drainage at the Yan site in the right lower quadrant and it appears serous and slightly sanguineous. The midline incision is healing well. Her abdomen is much softer this morning. Laboratory pugh, her hemoglobin is 8.5 and has been around that area, I think this is most related to dilutional effects. Her BUN is 7 and her creatinine 0.64. Her potassium is up to 3.3. She has probably dilutional hyponatremia. At this point, we will discontinue the IV fluids, increase her diet, discontinue the WOOD CABINET FINISHER, change her p.o. analgesics and hopefully may be able to send her home by tomorrow.
[2017-12-06] MEDS: HEPARIN SOD 5000 UNIT/0.5 ML CARP SQ SCH ×2 (09:02→20:00)
[2017-12-06] MEDS: TRIAMTERENE/HCTZ 37.5/25MG TAB PO SCH (09:03)
[2017-12-06] MEDS: MULTIVITAMIN TAB PO SCH (09:03)
[2017-12-06] MEDS: POTASSIUM CHLORIDE 20 MEQ TABCR PO SCH ×2 (09:03→17:05)
[2017-12-06 15:00] VITALS: BP 112/68; PULSE 88; TEMP 37.3; O2SAT 95
[2017-12-06 15:55] VITALS: O2SAT 95
[2017-12-06] MEDS: ASPIRIN 81 MG ECTAB PO SCH (20:29)
[2017-12-06 20:30] VITALS: BP 130/76; PULSE 95
[2017-12-06 23:07] VITALS: BP 120/72; PULSE 81; TEMP 36.9; O2SAT 96
[2017-12-07] MEDS: HEPARIN SOD 5000 UNIT/0.5 ML CARP SQ SCH (06:48)
[2017-12-07 07:28] LABS: BASO % 0.1 %; BASO ABS # 0.01 K/uL (0-0.2); EOS % 2.3 %; EOS ABS # 0.19 K/uL (0-0.5); HEMATOCRIT 27.2 % (37-47); HEMOGLOBIN 9.7 g/dL (12.0-16.0); IG# 0.01 K/uL (0.00-0.02); LYMPH % 16.6 %; LYMPH ABS # 1.35 K/uL (1.2-3.4); MEAN CELL VOLUME 86.9 fL (80-100); MEAN CORPUSCULAR HGB CONC 35.7 g/dl (32-36); MEAN PLATELET VOLUME 9.5 fL (7.4-10.4); MONO % 11.4 %; MONO ABS # 0.93 K/uL (0.11-0.59); NEUT % 69.5 %; NEUT ABS # 5.65 K/uL (1.4-6.5); PLATELET COUNT 230 K/uL (130-400); RED CELL DISTRIBUTION WIDTH CV 12.8 % (11.5-14.5); RED CELL DISTRIBUTION WIDTH SD 40.8 fL (36.4-46.3); WHITE BLOOD COUNT 8.14 K/uL (4.8-10.8)
[2017-12-07] MEDS ORDERED: OXYC-57 PO (07:32)
--- NOTE | 2017-12-07 07:35 | Discharge Instructions ---
Discharge Instructions Date of Service Dec 07, 2017. Admission Reason for Admission: Diverticular Disease Discharge Discharge Diagnosis / Problem: sigmoid colon resection Discharge Goals Goal(s): Improve disease control Activity Recommendations Activity Limitations: as noted below Lifting Limitations: no more than 10 pounds Shower/Bathe: no limitations Driving or Machine Use: resume 3 days after discharge . Instructions / Follow-Up Instructions / Follow-Up Dr. Llamas in 1 week, call [phone] to schedule Current Hospital Diet Patient's current hospital diet: Low Fiber Diet Discharge Diet Recommended Diet: Low Fiber Diet (until BM formed then start high fiber) Procedures Procedures Performed: Laparoscopic Assisted Colon Resection Pending Studies Studies pending at discharge: no Medical Emergencies . Who to Call and When: Medical Emergencies: If at any time you feel your situation is an emergency, please call 911 immediately. . Non-Emergent Contact Non-Emergency issues call your: Surgeon Call Non-Emergent contact if: you have a fever, temperature is above 101.5, your pain is not controlled, wound has increased drainage, wound has increased redness, you have any medication questions . "Provider Documentation" section prepared by Johny Moore. . VTE Core Measure Inpt VTE Proph given/why not?: Unfractionated heparin SQ, SCD's
--- NOTE | 2017-12-07 07:37 | Surgery Progress Note ---
Surgery Progress Note Date of Service Dec 07, 2017. Subjective + feeling well, + bowel movement, + diet (regular), No nausea Objective Vital Signs: Date Time Temp Pulse Resp B/P (MAP) Pulse Ox O2 Delivery O2 Flow Rate FiO2 12/07/17 00:15 Room Air 12/06/17 23:07 36.9 81 14 120/72 (88) 96 Room Air 12/06/17 20:30 95 130/76 (94) 12/06/17 15:55 95 Room Air 12/06/17 15:00 37.3 88 16 112/68 (83) 95 Room Air 12/06/17 08:00 Room Air 12/06/17 07:41 36.7 71 17 132/71 (91) 95 Room Air Abdomen: non distended, soft Incision(s): clean, no erythema, drainage (from drain site decreasing) Laboratory Results: Results Past 24 Hours Test 12/07/17 07:15 Range/Units White Blood Count 8.14 4.8-10.8 K/uL Red Blood Count 3.13 4.2-5.4 M/uL Hemoglobin 9.7 12.0-16.0 g/dL Hematocrit 27.2 37-47 % Mean Corpuscular Volume 86.9 80-100 fL Mean Corpuscular Hemoglobin 31.0 25-34 pg Mean Corpuscular Hemoglobin Concent 35.7 32-36 g/dl Platelet Count 230 130-400 K/uL Mean Platelet Volume 9.5 7.4-10.4 fL Neutrophils (%) (Auto) 69.5 % Lymphocytes (%) (Auto) 16.6 % Monocytes (%) (Auto) 11.4 % Eosinophils (%) (Auto) 2.3 % Basophils (%) (Auto) 0.1 % Neutrophils # (Auto) 5.65 1.4-6.5 K/uL Lymphocytes # (Auto) 1.35 1.2-3.4 K/uL Monocytes # (Auto) 0.93 0.11-0.59 K/uL Eosinophils # (Auto) 0.19 0-0.5 K/uL Basophils # (Auto) 0.01 0-0.2 K/uL RDW Standard Deviation 40.8 36.4-46.3 fL RDW Coefficient of Variation 12.8 11.5-14.5 % Immature Granulocyte % (Auto) 0.1 % Immature Granulocyte # (Auto) 0.01 0.00-0.02 K/uL Assessment & Plan s/p lap assisted sigmoid colectomy seen with Dr. Llamas will check K+ ok for discharge
[2017-12-07 07:58] LABS: CALCIUM 9.6 mg/dl (8.5-10.1); CREATININE 0.71 mg/dl (0.60-1.20); POTASSIUM 3.7 mmol/L (3.5-5.1)
[2017-12-07 08:29] VITALS: BP 113/62; PULSE 74; TEMP 36.6; O2SAT 95
[2017-12-07] MEDS: MULTIVITAMIN TAB PO SCH (09:00)
[2017-12-07] MEDS: TRIAMTERENE/HCTZ 37.5/25MG TAB PO SCH (09:16)
[2017-12-07] MEDS: POTASSIUM CHLORIDE 20 MEQ TABCR PO SCH (09:17)
[2017-12-07 10:54] VITALS: BP 113/62; PULSE 74; TEMP 36.6; O2SAT 95
--- NOTE | 2017-12-10 13:11 | DISCHARGE SUMMARY ---
PRIMARY DISCHARGE DIAGNOSES: 1. Diverticular stricture. 2. Hypokalemia -- corrected. 3. Postoperative anemia (blood loss). SECONDARY DISCHARGE DIAGNOSES: 1. Hypertension. 2. Gastroesophageal reflux disease. PROCEDURE PERFORMED: Laparoscopic assisted sigmoid colectomy with primary anastomosis and lysis of adhesions. HOSPITAL COURSE: The patient is a 72-year-old female with diverticular stricture noted on colonoscopy, admitted through same day and taken to the operating room for laparoscopic assisted sigmoid colectomy. Procedure was well tolerated. She was transferred to the surgical floor. Subcutaneous heparin was used for DVT prophylaxis. UNDERGROUND MINE SUPERINTENDENT was used for postoperative analgesia. Devlin catheter was removed on postoperative day #1. She was started on clear liquid diet. She was advanced to full liquids on day #2. On day #3, she had been having some nausea overnight and was not feeling as well. A Sam drain had become dislodged and was removed. Subcutaneous [place] drain was also removed. Her potassium had fallen to 2.6 and was then supplemented. By day #4, she was feeling better. She had multiple bowel movements. Her potassium improved to 3.3 with continued oral supplementation. By day #5, she was tolerating regular diet and oral analgesics. Her potassium normalized to 3.7. Her H&H remained stable at 9.7 and 27. She did not require transfusion. Her abdomen was soft. Incision was dry. She did have some drainage from the previous Sam drain site, which was decreasing. DISCHARGE INSTRUCTIONS: Discharge home. Follow up with Dr. Llamas in 1 week. DISCHARGE MEDICATIONS: Percocet 1-2 tablets every 4 hours as needed. Resume home medications including potassium chloride 10 mEq b.i.d., aspirin 81 mg daily, atenolol 50 mg daily, vitamin D supplement, Tagamet 400 mg as needed, Benadryl Allergy 1 tablet as needed, omega-3 supplement, magnesium and zinc supplement 1 tablet daily, daily melatonin, Zantac 150 mg as needed, and triamterene/HCTZ 37.5/25 mg 1 tablet daily. She can decrease her home stool softeners to sennosides/docusate 1 tablet at bedtime. MTDD
== END 2017-12-07 11:37 | disposition home or self-care (01) | DRG 330 ==
LOC: C.ACU 05:20 → C.MSN 07:20 → ENRESERV 12:30 → C.MSN 21:03
PROVIDERS: ADMIT Surgery; ATTEND Surgery
PROC: 0DN80ZZ Release Small Intestine, Open Approach (ICD-10-PCS; principal; 2017-12-02 08:00)
PROC: 0DTN0ZZ Resection of Sigmoid Colon, Open Approach (ICD-10-PCS; principal; 2017-12-02 08:00)
DX: K56.699 Other intestinal obstruction unspecified as to partial versus complete obstruction (principal); D62 Acute posthemorrhagic anemia; E87.1 Hypo-osmolality and hyponatremia; K57.30 Diverticulosis of large intestine without perforation or abscess without bleeding; G89.18 Other acute postprocedural pain; E87.6 Hypokalemia; R11.0 Nausea; K66.0 Peritoneal adhesions (postprocedural) (postinfection); I10 Essential (primary) hypertension; K21.9 Gastro-esophageal reflux disease without esophagitis; Z23 Encounter for immunization; Z86.73 Personal history of transient ischemic attack (TIA), and cerebral infarction without residual deficits; Z79.82 Long term (current) use of aspirin; Z79.899 Other long term (current) drug therapy; Z88.5 Allergy status to narcotic agent; Z88.8 Allergy status to other drugs, medicaments and biological substances

== ENCOUNTER → 2018-01-12 | Outpatient (CLI) | payer BC ==
[~2018-01-12] MED LIST changes: +MELATAB2 PO; +OXYC-57 PO; +RANI150T85 PO; -ZNTT/150 PO
== END | disposition home or self-care (01) ==
LOC: C.LAB1850 15:42
PROVIDERS: ATTEND Internal Medicine Pulmonary Disease
DX: R33.9 Retention of urine, unspecified (principal)

== ENCOUNTER → 2018-03-15 | Outpatient (CLI) | payer BC ==
--- NOTE | 2018-03-15 15:22 | MAMMOGRAPHY REPORT ---
BILATERAL DIGITAL SCREENING MAMMOGRAM TOMOSYNTHESIS WITH CAD: 03/15/2018 CLINICAL HISTORY: Routine screening. Patient has no complaints. TECHNIQUE: Breast tomosynthesis in addition to standard 2D mammography was performed. Current study was also evaluated with a Computer Aided Detection (CAD) system. COMPARISON: Comparison is made to exams dated: 03/12/2017 mammogram, 03/11/2016 mammogram, 03/06/2015 m ammogram, 01/16/2015 ultrasound, 07/11/2014 ultrasound, and 03/05/2014 mammogram - [facility]. BREAST COMPOSITION: The tissue of both breasts is extremely dense, which lowers the sensitivity of m ammography. FINDINGS: Linear scar markers overlie each anterior breast. There is evidence of prior bilateral [place] ast surgery. The glandular pattern is similar to prior mammograms. There are mild vascular calcific ations, scattered benign punctate and rim calcifications. No developing mass, architectural distorti on or cluster of suspicious microcalcifications is seen in either breast. IMPRESSION: ACR BI-RADS CATEGORY 2: BENIGN There is no mammographic evidence of malignancy. A 1 year screening mammogram is recommended. The pa tient will receive written notification of the results. Approximately 10% of breast cancers are not detected with mammography. A negative mammographic report should not delay biopsy if a clinically suggestive mass is present. Leah Kelley M.D. ay/:03/15/2018 13:17:16 Software Validation Engineer: Lexie William, [facility] letter sent: Normal 1/2 BI-RADS Code: ACR BI-RADS Category 2: Benign
== END | disposition home or self-care (01) ==
LOC: C.MAMM 09:51
PROVIDERS: ATTEND Internal Medicine Pulmonary Disease
DX: Z12.31 Encounter for screening mammogram for malignant neoplasm of breast (principal)

== ENCOUNTER → 2018-07-11 | Outpatient (CLI) | payer BC, OTHER ==
[~2018-07-11] MED LIST changes: -OXYC-57 PO
--- NOTE | 2018-07-11 12:08 | DIAGNOSTIC IMAGING REPORT ---
R CLAVICLE CLINICAL HISTORY: M25.519 Pain in clavicular [id number] COMPARISON STUDY: None. FINDINGS: No fracture or dislocation within the right clavicle. The AC joint is well aligned. 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 IMPRESSION: 1. Mild AC joint arthrosis. 2. No fractures within the right clavicle. Electronically signed by: Malcom Retana M.D. 07/11/2018 12:07 PM Dictated Date/Time: 07/11/2018 12:06 PM
== END | disposition home or self-care (01) ==
LOC: C.RAD1850 11:57
PROVIDERS: ATTEND Physician Assistant Medical
DX: M25.511 Pain in right shoulder (principal)

== ENCOUNTER 2020-05-18 12:28 | Inpatient (IN) ==
[2020-05-18] MEDS ORDERED: SODIUM CHLORIDE 0.9% 500 ML IV ONE (12:38)
--- NOTE | 2020-05-18 12:47 | Emergency Department Note ---
Impression & Plan Stroke-like symptoms, Hypertension, Aphasia, Headache, History of atrial fibrillation, Acute renal insufficiency ED Provider Note NAME: BHANU ANN AGE: 74 SEX: F ARRIVES VIA: Walk-In INFORMANT: Patient, ED PROVIDER(S): Chidi Moctezuma MD CHIEF COMPLAINT: Stroke symptoms. PLAN: Disposition: Admit MEDICAL DECISION MAKING: Patient evaluated at 1240. 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 Of note, the patient is unsure as to why she is not on a blood thinner for her history of A. fib.. Prior to today she reports feeling healthy denies any fevers, chills, cough, congestion, nausea, vomiting, diarrhea, urinary symptoms. In fact she was obtaining preoperative clearance for blepharoplasty later this month. Stroke alert was activated from triage. On arrival the patient is anxious appearing but no acute distress, afebrile with elevated blood pressure 190s/80s and vital signs otherwise stable. On exam the patient has fluent speech, face is symmetric, extremities have symmetric normal strength. There are no visual field deficits. However, when attempting to describe picture she does have some mild difficulty and further has difficulty reading words. NIH score given was 2. CT the head was performed upon arrival and demonstrates 2 cm left frontal hypodensity that could represent small vessel disease versus infarct. CTA of the head and neck was performed there is no evidence of large vessel occlusion or cutoffs, though some narrowing of vessels. Case was discussed with Dr. Lui, [facility] tele-stroke and given the patient is still symptomatic within the window for TPA decision to treat will be dependent on the patient's comfort level with a potential disability of being unable to read. Upon Dr. Lui's evaluation the patient's symptoms have mostly returned to baseline and upon further discussion it was agreed that TPA would be deferred as the risk was not worth the benefit in this incident. It is suspected that stroke is the most likely diagnosis at this time given the patient's documented history of A. fib and so recommends MRI and if there are no large or numerous lesions then would recommend beginning apixaban 2.5 mg twice daily given the patient's current renal function. If kidney function returns to normal then could initiate full dose apixaban. Otherwise recommends maintaining magnesium above 2 for neuro protection and continue with hydration. EKG without evidence of acute ischemia. CXR negative. WBC and platelets wnl. H/H 11.8/34 improved from prior values. Chemistry without acidosis. Cr. 1.9 increased from 2019. Magnesium 1.9 with repletion provided. LFTs unremarkable. Troponin negative/undetectable. UA negative for infection. Case was discussed with Dr. Barragan, [facility] hospitalist, who will evaluate the patient for admission. Triage Nursing notes reviewed and agree them. Prior medical records reviewed Vital Signs: reviewed and remarkable for no significant abnormalities Differential diagnosis: Infection, dehydration, metabolic abnormality, hypo/hyperglycemia, electrolyte disturbance, anemia, hypoxia, cardiac sources, intracerebral event, toxicologic, neurologic, as well as other pathologies. ER treatment provided: See below. Diagnostics interpreted by me: ECG: Normal sinus rhythm, 69 bpm, normal axis, no ectopy, nonspecific ST abnormality, no overt ST elevation or depression, QTC 415, QRS 88. Cardiac Monitoring: An order for continuous cardiac monitoring was placed and demonstrated normal sinus rhythm, 69 bpm, no ectopy. Laboratory studies: See below Imaging studies: CT OF THE HEAD WITHOUT CONTRAST CLINICAL HISTORY: Stroke evaluation COMPARISON STUDY: MRI of the brain December 17, 2010. TECHNIQUE: Helical axial images of the head were obtained without IV contrast. Automated exposure control was utilized for the study. A dose lowering technique was utilized adhering to the principles of ALARA. FINDINGS: No acute intracranial hemorrhage, midline shift or mass effect is present. The ventricular system is unremarkable. The basilar cisterns are patent. White matter hypodensity suggests small vessel disease. There is a 2 cm hypodense focus within the left frontal lobe on image 14 of 28. No extra-axial collections are present. There are no findings to suggest acute dural sinus thrombosis or acute territorial infarct. No significant calvarial abnormalities are present. Visualized portions of the sinuses and mastoid air cells are clear. IMPRESSION: 1. No acute intracranial hemorrhage or mass effect. 2. 2 cm hypodensity within the left frontal lobe. This probably reflects small v essel disease although an acute infarct could appear similar. -- CTA ANGIOGRAPHY OF THE HEAD CLINICAL HISTORY: Stroke evaluation COMPARISON STUDY: MRI of the brain December 26, 2010. TECHNIQUE: Helical axial images of the head were obtained following uneventful intravenous administration of 119 cc of Optiray 320. Sagittal and coronal reconstructions were viewed as well as maximal intensity projections on an independent 3-D workstation. Automated exposure control was utilized for the study. A dose lowering technique was utilized adhering to the principles of ALARA. FINDINGS: No acute intracranial hemorrhage, midline shift or mass effect is present. Ventricular system is normal. The basilar cisterns are patent. There are no extra axial collections. The bilateral M1, M2, A1 and A2 segments are patent. There is mild plaque within the bilateral cavernous carotids. There is moderate stenosis of the distal left M1 segment. There is moderate stenosis of the left P2 segment. No intraluminal thrombus is noted. No abrupt vessel cut off is identified. There is no dissection within the major intracranial vessels. IMPRESSION: 1. No intraluminal thrombus or abrupt vessel cut off. 2. Moderate multifocal stenoses within the intracranial vessels, as described above. -- CT ANGIOGRAPHY OF THE NECK WITH CONTRAST CLINICAL HISTORY: Stroke evaluation COMPARISON STUDY: Carotid ultrasound February 04, 2016. Technique: CT angiography of the carotid and vertebral arteries was obtained usi ng Optiray 320 IV and 3D reconstruction on an independent workstation. NASCET criteria was utilized. Automated exposure control was utilized for the study. A dose lowering technique was utilized adhering to the principles of ALARA. Findings: Lung apices are clear. There is no cervical lymphadenopathy. No cervical spine fracture is noted. There is moderate plaque within the proximal right internal carotid artery without significant stenosis. There is minimal plaque within the proximal left internal carotid artery without stenosis. The bilateral vertebral arteries are patent. There is no dissection within the major vessels of the neck. No aneurysmal dilatation is noted. The CTA of the head will be reported separately. IMPRESSION: Mild to moderate atherosclerotic plaque within the proximal bilateral internal carotid arteries without hemodynamically significant stenosis. Consultation(s): Dr. Lui, [facility] tele-stroke neurology. Case was discussed with Dr. Barragan, [facility] hospitalist, who will evaluate the patient for admission. 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 Of note, the patient is unsure as to why she is not on a blood thinner for her history of A. fib.. Prior to today she reports feeling healthy denies any fevers, chills, cough, congestion, nausea, vomiting, diarrhea, urinary symptoms. In fact she was obtaining preoperative clearance for blepharoplasty later this month. Stroke alert was activated from triage. ROS: See above HPI for pertinent positives & negatives. A total of 10 systems reviewed and were otherwise negative. PAST MEDICAL HISTORY:See Below PAST SURGICAL HISTORY:See Below FAMILY HISTORY:See Below SOCIAL HISTORY:See Below HOME MEDICATIONS:See Below ALLERGIES:See Below VITALS:See Below PHYSICAL EXAMINATION: GENERAL: Awake, alert, anxious-appearing, in no distress HENT: Normocephalic, atraumatic. Oropharynx with dry mucous membranes and otherwise unremarkable. EYES: Normal conjunctiva. Sclera non-icteric. EOMI. No nystamgus. PEARRL. Visual roche grossly intact. NECK: Supple. No nuchal rigidity. FROM. No JVD. RESPIRATORY: Clear to auscultation. CARDIAC: Regular rate, normal rhythm. Extremities warm and well perfused. Pulses equal. ABDOMEN: Soft, non-distended. No tenderness to palpation. No rebound or guarding. No masses. RECTAL: Deferred. MUSCULOSKELETAL: Chest examination reveals no tenderness. The back is symmetrical on inspection without obvious abnormality. There is no CVA tenderness to palpation. No joint edema. LOWER EXTREMITIES: Calves are equal size bilaterally and non-tender. No edema. No discoloration. NEURO: Normal sensorium. No sensory or motor deficits noted. 5/5 strength and SILT x 4 extremities. Intact finger to nose. Speech fluent but difficulty naming objects from pictures, difficulty describing pictures, difficulty reading. SKIN: No rash or jaundice noted. ED COURSE: Critical Care: I have personally spent greater than 35 minutes of critical care time in the direct management of this patient. This includes bedside care, interpretation of diagnostic studies, and testing, discussion with consultants, patient, and family members, and other required patient management activities. This 35 minutes is in excess of all separately billable procedures. Chidi Moctezuma MD Past Med/Surg History Medical History (Updated 05/18/20 @ 22:09 by Chidi Moctezuma MD) Atrial fibrillation PERIODIC EPISODES. NO CARDIOVERSION. FOLLOWS WITH DR. BARFIELD. Diverticulitis (Resolved) Pancreatitis (Resolved) ~2000 Peptic ulcer disease (Resolved) H/O DUODENAL ULCER, TAKES TAGAMET PRN. Transient ischemic attack (TIA) (Resolved) ~8 YEARS AGO. TAKES ASPIRIN 81MG DAILY. Surgical History (Updated 03/28/20 @ 14:13 by Frantz Henao MD) History of bilateral tubal ligation (Resolved) History of bowel resection (Resolved) History of cardiac cath (Resolved) NO STENTS (~8 YEARS AGO) History of cataract surgery (Resolved) BILATERAL History of colonoscopy (Resolved 2018) History of corneal transplant (Resolved) History of dilatation and curettage (Resolved) History of hysterectomy (Resolved) YARA WITH BSO Hx of lumpectomy (Resolved) X2 (BENIGN) Social History Preferred Language: Tuvaluan Communication Ability: Effective Spool Tender Required: No Beliefs That Will Affect Care: None marital status: Current Living Situation: Spouse Other Information That Helps Us Care for You: No Feels Safe at Home: Yes Safety Concerns: Feels Safe At This Time Smoking Status: Never smoker Second Hand Exposure: No ; Hx Alcohol Use: No Hx Substance Use: No Allergies Allergies Allergy/AdvReac Type Severity Reaction Status Date / Time heparin Allergy Intermediate RASH, Verified 05/18/20 14:56 SWELLING, NUMBNESS Dccxoyi-Wru-Uye Reductase Allergy Intermediate Hives, rash Verified 05/18/20 14:56 Inhibitor atorvastatin Allergy Unknown hives, Verified 05/18/20 14:56 ezetimibe Allergy Unknown hives Verified 05/18/20 14:56 pravastatin Allergy Unknown hives Verified 05/18/20 14:56 rosuvastatin Allergy Unknown hives Verified 05/18/20 14:56 simvastatin Allergy Unknown hives Verified 05/18/20 14:56 Influenza Virus Vaccines AdvReac Severe severe flu Verified 05/18/20 14:56 Cipro AdvReac Intermediate Nausea, Verified 11/29/17 15:59 weakness ciprofloxacin AdvReac Intermediate Nausea, Verified 05/18/20 14:56 weakness codeine AdvReac Intermediate Vomiting Verified 05/18/20 14:56 clarithromycin AdvReac Unknown nausea and Verified 05/18/20 14:56 vomiting Home Meds Home Medications Medication Instructions Recorded Confirmed aspirin [Aspirin Low Dose] 81 mg PO QPM 11/14/18 05/18/20 cholecalciferol (vitamin D3) 1,000 unit PO BID 11/14/18 05/18/20 [Vitamin D3] cimetidine [Tagamet HB] 200 mg PO QID PRN 11/14/18 05/18/20 diphenhydramine HCl [Benadryl 12.5 mg PO HS PRN 11/14/18 05/18/20 Allergy] magnesium 250 mg PO HS 11/14/18 05/18/20 melatonin 5 mg PO HS PRN 11/14/18 05/18/20 omega 4-cwe-xsc-fish oil [Fish Oil] 1 cap PO BID 11/14/18 05/18/20 sennosides [Senokot] 8.6 mg PO HS 11/14/18 05/18/20 prednisolone acetate 1 % eye 1 drops OP DAILY ml 07/21/19 05/18/20 drops,suspension Previous Rx's Medication Instructions Recorded atenolol 100 mg tablet 50 mg PO QPM #90 tab 10/20/19 potassium citrate 10 mEq (1,080 10 meq PO BID #180 tab 04/29/20 mg) tablet,extended release triamterene 37.5 1 cap PO QPM #90 cap 04/29/20 mg-hydrochlorothiazide 25 mg capsule Results & Data (ED) Vital Signs Vital Signs - 24 hr 05/18/20 12:33 05/18/20 12:52 05/18/20 12:54 Temperature 36.6 C Temperature Source Oral Pulse Rate 64 85 78 Pulse Rate from SpO2 Sensor Respiratory Rate 18 Respiratory Effort / Characteristics Non-Labored Spontaneous Respiratory Depth Normal Respiratory Pattern Regular Blood Pressure 193/89 H 194/83 H Blood Pressure Mean 123 112 Blood Pressure Position Sitting Pulse Oximetry 100 97 Oxygen Delivery Method Room Air Room Air Sepsis Recent Fever Within 48 Hours No Sepsis New/Unexplained Change in Mental Status No Sepsis Action Taken by Nursing No Action Required 05/18/20 13:00 05/18/20 13:12 05/18/20 13:16 Temperature Temperature Source Pulse Rate 81 70 88 Pulse Rate from SpO2 Sensor 79 70 76 Respiratory Rate 20 Respiratory Effort / Characteristics Respiratory Depth Respiratory Pattern Blood Pressure 175/81 H 155/107 H Blood Pressure Mean 102 112 Blood Pressure Position Pulse Oximetry 100 99 99 Oxygen Delivery Method Room Air Room Air Room Air Sepsis Recent Fever Within 48 Hours Sepsis New/Unexplained Change in Mental Status Sepsis Action Taken by Nursing 05/18/20 13:32 05/18/20 13:45 05/18/20 14:01 Temperature Temperature Source Pulse Rate 62 59 L 63 Pulse Rate from SpO2 Sensor 59 L 62 Respiratory Rate 20 20 16 Respiratory Effort / Characteristics Respiratory Depth Respiratory Pattern Blood Pressure 167/138 H 181/82 H 174/94 H Blood Pressure Mean 142 100 116 Blood Pressure Position Pulse Oximetry 95 98 99 Oxygen Delivery Method Room Air Room Air Room Air Sepsis Recent Fever Within 48 Hours Sepsis New/Unexplained Change in Mental Status Sepsis Action Taken by Nursing 05/18/20 14:16 05/18/20 14:31 Temperature Temperature Source Pulse Rate 63 56 L Pulse Rate from SpO2 Sensor 61 56 L Respiratory Rate Respiratory Effort / Characteristics Respiratory Depth Respiratory Pattern Blood Pressure 160/70 H 169/63 H Blood Pressure Mean 89 110 Blood Pressure Position Pulse Oximetry 99 100 Oxygen Delivery Method Sepsis Recent Fever Within 48 Hours Sepsis New/Unexplained Change in Mental Status Sepsis Action Taken by Nursing Laboratory Data Result diagrams: 05/18/20 12:56 05/18/20 12:56 Lab Results 05/18/20 05/18/20 05/18/20 Range/Units 12:54 12:56 12:56 WBC 6.45 (4.8-10.8) K/uL RBC 3.98 L (4.2-5.4) M/uL Hgb 11.8 L (12.0-16.0) g/dL POC Hgb (12.0-16.0) g/dl Hct 34.0 L (37-47) % POC Hct (37-47) % MCV 85.4 (80-100) fL MCH 29.6 (25-34) pg MCHC 34.7 (32-36) g/dL RDW Std Deviation 40.5 (36.4-46.3) fL RDW Coeff of Edel 12.9 (11.5-14.5) % Plt Count 215 (130-400) K/uL MPV 10.3 (7.4-10.4) fL Immature Gran % (Auto) 0.0 % Neut % (Auto) 51.7 % Lymph % (Auto) 37.5 % Perkins % (Auto) 8.4 % Eos % (Auto) 2.2 % Baso % (Auto) 0.2 % Neut # (Auto) 3.34 (1.4-6.5) K/uL Lymph # (Auto) 2.42 (1.2-3.4) K/uL Perkins # (Auto) 0.54 (0.11-0.59) K/uL Eos # (Auto) 0.14 (0-0.5) K/uL Baso # (Auto) 0.01 (0-0.2) K/uL Immature Gran # (Auto) 0.00 (0.00-0.02) K/uL PT (9.0-12.0) Seconds INR (0.9-1.1) APTT (21.0-31.0) Seconds PTT Ratio POC Sodium (135-144) mmol/L Sodium (136-145) mmol/L POC Potassium (3.3-5.0) mmol/L Potassium (3.5-5.1) mmol/L POC Chloride (101-112) mmol/L Chloride (98-107) mmol/L Carbon Dioxide (21-32) mmol/L POC Total CO2 (24-31) mmol/L Anion Gap (3-11) POC Anion Gap (16-25) mmol/L POC BUN (7-18) mg/dl BUN (7-18) mg/dl Creatinine (0.6-1.2) mg/dl POC Creatinine (0.6-1.3) mg/dl Est Cr Clr Drug Dosing ml/min Est GFR ( Amer) Est GFR (Non-Af Amer) BUN/Creatinine Ratio (10-20) Glucose (70-99) mg/dl POC Glucose 103 H (70-99) mg/dl POC Glucose (other) (70-99) mg/dl Calcium (8.5-10.1) mg/dl POC Ioniz Calcium Chucho (1.12-1.32) mmol/l Magnesium (1.8-2.4) mg/dl Total Bilirubin (0.2-1) mg/dl AST (15-37) U/L ALT (12-78) U/L Alkaline Phosphatase (45-117) U/L Troponin I (0-0.045) ng/ml Total Protein (6.4-8.2) gm/dl Albumin (3.4-5.0) gm/dl Globulin (2.5-4.0) gm/dl Albumin/Globulin Ratio (0.9-2) Urine Color Urine Appearance (Clear) Urine pH (4.5-7.5) Ur Specific [place] (1.000-1.030) Urine Protein (Negative) Urine Glucose (UA) (Negative) Urine Ketones (Negative) Urine Blood (Negative) Urine Nitrite (Negative) Urine Bilirubin (Negative) Urine Urobilinogen (Negative) Ur Leukocyte Esterase (Negative) Blood Type O Positive Antibody Screen NEGATIVE 05/18/20 05/18/20 05/18/20 Range/Units 12:56 12:56 12:59 WBC (4.8-10.8) K/uL RBC (4.2-5.4) M/uL Hgb (12.0-16.0) g/dL POC Hgb 11.2 L (12.0-16.0) g/dl Hct (37-47) % POC Hct 33 L (37-47) % MCV (80-100) fL MCH (25-34) pg MCHC (32-36) g/dL RDW Std Deviation (36.4-46.3) fL RDW Coeff of Edel (11.5-14.5) % Plt Count (130-400) K/uL MPV (7.4-10.4) fL Immature Gran % (Auto) % Neut % (Auto) % Lymph % (Auto) % Perkins % (Auto) % Eos % (Auto) % Baso % (Auto) % Neut # (Auto) (1.4-6.5) K/uL Lymph # (Auto) (1.2-3.4) K/uL Perkins # (Auto) (0.11-0.59) K/uL Eos # (Auto) (0-0.5) K/uL Baso # (Auto) (0-0.2) K/uL Immature Gran # (Auto) (0.00-0.02) K/uL PT 11.5 (9.0-12.0) Seconds INR 1.1 (0.9-1.1) APTT 29.2 (21.0-31.0) Seconds PTT Ratio 1.0 POC Sodium 131 L (135-144) mmol/L Sodium 133 L (136-145) mmol/L POC Potassium 3.7 (3.3-5.0) mmol/L Potassium 3.7 (3.5-5.1) mmol/L POC Chloride 94 L (101-112) mmol/L Chloride 100 (98-107) mmol/L Carbon Dioxide 26 (21-32) mmol/L POC Total CO2 24 (24-31) mmol/L Anion Gap 7.0 (3-11) POC Anion Gap 18.0 (16-25) mmol/L POC BUN 21 H (7-18) mg/dl BUN 22 H (7-18) mg/dl Creatinine 1.93 H (0.6-1.2) mg/dl POC Creatinine 2.0 H (0.6-1.3) mg/dl Est Cr Clr Drug Dosing 20.4 ml/min Est GFR ( Amer) 29.4 Est GFR (Non-Af Amer) 25.4 BUN/Creatinine Ratio 11.3 (10-20) Glucose 96 (70-99) mg/dl POC Glucose (70-99) mg/dl POC Glucose (other) 91 (70-99) mg/dl Calcium 9.0 (8.5-10.1) mg/dl POC Ioniz Calcium Chucho 1.22 (1.12-1.32) mmol/l Magnesium 1.9 (1.8-2.4) mg/dl Total Bilirubin 0.6 (0.2-1) mg/dl AST 16 (15-37) U/L ALT 20 (12-78) U/L Alkaline Phosphatase 59 (45-117) U/L Troponin I < 0.015 (0-0.045) ng/ml Total Protein 6.4 (6.4-8.2) gm/dl Albumin 3.2 L (3.4-5.0) gm/dl Globulin 3.2 (2.5-4.0) gm/dl Albumin/Globulin Ratio 1.0 (0.9-2) Urine Color Urine Appearance (Clear) Urine pH (4.5-7.5) Ur Specific [place] (1.000-1.030) Urine Protein (Negative) Urine Glucose (UA) (Negative) Urine Ketones (Negative) Urine Blood (Negative) Urine Nitrite (Negative) Urine Bilirubin (Negative) Urine Urobilinogen (Negative) Ur Leukocyte Esterase (Negative) Blood Type Antibody Screen 05/18/20 Range/Units 13:25 WBC (4.8-10.8) K/uL RBC (4.2-5.4) M/uL Hgb (12.0-16.0) g/dL POC Hgb (12.0-16.0) g/dl Hct (37-47) % POC Hct (37-47) % MCV (80-100) fL MCH (25-34) pg MCHC (32-36) g/dL RDW Std Deviation (36.4-46.3) fL RDW Coeff of Edel (11.5-14.5) % Plt Count (130-400) K/uL MPV (7.4-10.4) fL Immature Gran % (Auto) % Neut % (Auto) % Lymph % (Auto) % Perkins % (Auto) % Eos % (Auto) % Baso % (Auto) % Neut # (Auto) (1.4-6.5) K/uL Lymph # (Auto) (1.2-3.4) K/uL Perkins # (Auto) (0.11-0.59) K/uL Eos # (Auto) (0-0.5) K/uL Baso # (Auto) (0-0.2) K/uL Immature Gran # (Auto) (0.00-0.02) K/uL PT (9.0-12.0) Seconds INR (0.9-1.1) APTT (21.0-31.0) Seconds PTT Ratio POC Sodium (135-144) mmol/L Sodium (136-145) mmol/L POC Potassium (3.3-5.0) mmol/L Potassium (3.5-5.1) mmol/L POC Chloride (101-112) mmol/L Chloride (98-107) mmol/L Carbon Dioxide (21-32) mmol/L POC Total CO2 (24-31) mmol/L Anion Gap (3-11) POC Anion Gap (16-25) mmol/L POC BUN (7-18) mg/dl BUN (7-18) mg/dl Creatinine (0.6-1.2) mg/dl POC Creatinine (0.6-1.3) mg/dl Est Cr Clr Drug Dosing ml/min Est GFR ( Amer) Est GFR (Non-Af Amer) BUN/Creatinine Ratio (10-20) Glucose (70-99) mg/dl POC Glucose (70-99) mg/dl POC Glucose (other) (70-99) mg/dl Calcium (8.5-10.1) mg/dl POC Ioniz Calcium Chucho (1.12-1.32) mmol/l Magnesium (1.8-2.4) mg/dl Total Bilirubin (0.2-1) mg/dl AST (15-37) U/L ALT (12-78) U/L Alkaline Phosphatase (45-117) U/L Troponin I (0-0.045) ng/ml Total Protein (6.4-8.2) gm/dl Albumin (3.4-5.0) gm/dl Globulin (2.5-4.0) gm/dl Albumin/Globulin Ratio (0.9-2) Urine Color Yellow Urine Appearance Clear (Clear) Urine pH 8.5 H (4.5-7.5) Ur Specific [place] 1.020 (1.000-1.030) Urine Protein Negative (Negative) Urine Glucose (UA) Negative (Negative) Urine Ketones Negative (Negative) Urine Blood Negative (Negative) Urine Nitrite Negative (Negative) Urine Bilirubin Negative (Negative) Urine Urobilinogen Negative (Negative) Ur Leukocyte Esterase Negative (Negative) Blood Type Antibody Screen Administered Medications Apixaban (Eliquis) 2.5 mg PO BID [facility] Stop: 06/17/20 20:59 Last Admin: 05/18/20 20:02 Dose: 2.5 mg Documented by: [id number] Aspirin (Ecotrin Ectab) 81 mg PO QPM [facility] Stop: 06/17/20 20:59 Last Admin: 05/18/20 20:02 Dose: 81 mg Documented by: [id number] Atenolol (Tenormin) 50 mg PO QPM [facility] Stop: 06/17/20 20:59 Last Admin: 05/18/20 20:03 Dose: 50 mg Documented by: [id number] Docusate Sodium (Colace) 100 mg PO BID [facility] Stop: 06/17/20 20:59 Last Admin: 05/18/20 20:02 Dose: 100 mg Documented by: [id number] Sodium Chloride (Nss 1000ml) 1,000 mls @ 85 mls/hr IV .[id number] [facility] Stop: 05/19/20 16:30 Last Admin: 05/18/20 17:51 Dose: 85 mls/hr Documented by: [id number] Magnesium Oxide (Mag-Ox) 400 mg PO HS [facility] Stop: 06/17/20 20:59 Last Admin: 05/18/20 20:03 Dose: 400 mg Documented by: [id number] Potassium Citrate (Urocit-K) 10 meq PO BID [facility] Stop: 06/17/20 20:59 Last Admin: 05/18/20 20:03 Dose: 10 meq Documented by: [id number] Sennosides (Senokot) 8.6 mg PO [facility] Stop: 06/17/20 20:59 Last Admin: 05/18/20 20:03 Dose: 8.6 mg Documented by: [id number] Discontinued Medications Sodium Chloride (Nss) 500 mls @ 999 mls/hr IV .[id number] ONE Stop: 05/18/20 13:08 Last Infusion: 05/18/20 13:30 Dose: 0 mls/hr Documented by: [id number] Admin: 05/18/20 13:08 Dose: 999 mls/hr Documented by: [id number] Acetaminophen (Ofirmev) 1,000 mg in 100 mls @ 400 mls/hr IV NOW STA Stop: 05/18/20 13:23 Last Infusion: 05/18/20 14:11 Dose: 0 mls/hr Documented by: [id number] Admin: 05/18/20 13:56 Dose: 400 mls/hr Documented by: [id number] Magnesium Sulfate/Dextrose (Magnesium Sulfate / D5w) 1 gm in 100 mls @ 100 mls/hr IV Q1H [facility] Stop: 05/18/20 16:12 Last Infusion: 05/18/20 15:43 Dose: 0 mls/hr Documented by: [id number] Admin: 05/18/20 14:50 Dose: 100 mls/hr Documented by: [id number] Infusion: 05/18/20 14:50 Dose: 100 mls/hr Documented by: [id number] Admin: 05/18/20 14:23 Dose: 100 mls/hr Documented by: [id number] Sodium Chloride (Nss 1000ml) 1,000 mls @ 80 mls/hr IV .[id number] [facility] Stop: 06/17/20 14:14 Last Infusion: 05/18/20 16:03 Dose: 0 mls/hr Documented by: [id number] Admin: 05/18/20 14:23 Dose: 80 mls/hr Documented by: [id number] Ioversol (Optiray 320 125ml) 119 ml IV ONCE PRN PRN Reason: Interaction Checking Stop: 05/22/20 12:52 Last Admin: 05/18/20 12:54 Dose: 119 ml Documented by: [id number] Ketorolac Tromethamine (Toradol) 30 mg IV NOW ONE Stop: 05/18/20 15:14 Last Admin: 05/18/20 15:17 Dose: 30 mg Documented by: [id number] Ketorolac Tromethamine (Toradol) Confirm Administered Dose 30 mg .ROUTE .STK-MED ONE Stop: 05/18/20 15:15 Last Admin: 05/18/20 15:17 Dose: Not Given Documented by: [id number] Discharge Plan Visit Data *Final* Discharge Date/Time: 05/18/20 16:08 Chief Complaint: Stroke/CVA Symptoms Stated Complaint: TROUBLE SPEAKING, HEAD PAIN, LIP NUMBNESS, HTN ED Provider: Chidi Moctezuma Discharge Problem: Stroke-like symptoms, Hypertension, Aphasia, Headache, History of atrial fib rillation, Acute renal insufficiency Patient Disposition: Admitted As Inpatient Discharge Instructions Interventions: ED Discharge Assessment Last Done: 05/18/20 16:08
--- NOTE | 2020-05-18 12:48 | CT Scan Report ---
CT OF THE HEAD WITHOUT CONTRAST CLINICAL HISTORY: Stroke evaluation COMPARISON STUDY: MRI of the brain December 17, 2010. TECHNIQUE: Helical axial images of the head were obtained without IV contrast. Automated exposure con trol was utilized for the study. A dose lowering technique was utilized adhering to the principles o f ALARA. FINDINGS: No acute intracranial hemorrhage, midline shift or mass effect is present. The ventricular system is unremarkable. The basilar cisterns are patent. White matter hypodensity suggests small vess el disease. There is a 2 cm hypodense focus within the left frontal lobe on image 14 of 28. No extra- axial collections are present. There are no findings to suggest acute dural sinus thrombosis or acute territorial infarct. No significant calvarial abnormalities are present. Visualized portions of the sinuses and mastoid air cells are clear. IMPRESSION: 1. No acute intracranial hemorrhage or mass effect. 2. 2 cm hypodensity within the left frontal lobe. This probably reflects small vessel disease althoug h an acute infarct could appear similar. ACT 112: Negative or not required by law. Electronically signed by: William Rosales M.D. 05/18/2020 12:46 PM
[2020-05-18] MEDS ORDERED: OPTIRAY 320 125ml IV PRN (12:53)
--- NOTE | 2020-05-18 12:58 | CT Scan Report ---
CT ANGIOGRAPHY OF THE NECK WITH CONTRAST CLINICAL HISTORY: Stroke evaluation COMPARISON STUDY: Carotid ultrasound February 04, 2016. Technique: CT angiography of the carotid and vertebral arteries was obtained using AffashionraHandInScan 320 IV and 3D reconstruction on an independent workstation. NASCET criteria was utilized. Automated exposure c ontrol was utilized for the study. A dose lowering technique was utilized adhering to the principles of ALARA. Findings: Lung apices are clear. There is no cervical lymphadenopathy. No cervical spine fracture is noted. There is moderate plaque within the proximal right internal carotid artery without significant stenosis. There is minimal plaque within the proximal left internal carotid artery without stenosis. The bilateral vertebral arteries are patent. There is no dissection within the major vessels of the neck. No aneurysmal dilatation is noted. The CTA of the head will be reported separately. IMPRESSION: Mild to moderate atherosclerotic plaque within the proximal bilateral internal carotid arteries witho ut hemodynamically significant stenosis. ACT 112: Negative or not required by law. Electronically signed by: William Rosales M.D. 05/18/2020 12:57 PM
--- NOTE | 2020-05-18 13:02 | CT Scan Report ---
CTA ANGIOGRAPHY OF THE HEAD CLINICAL HISTORY: Stroke evaluation COMPARISON STUDY: MRI of the brain December 26, 2010. TECHNIQUE: Helical axial images of the head were obtained following uneventful intravenous administr ation of 119 cc of Optiray 320. Sagittal and coronal reconstructions were viewed as well as maximal i ntensity projections on an independent 3-D workstation. Automated exposure control was utilized for the study. A dose lowering technique was utilized adhering to the principles of ALARA. FINDINGS: No acute intracranial hemorrhage, midline shift or mass effect is present. Ventricular syst em is normal. The basilar cisterns are patent. There are no extra axial collections. The bilateral M1 , M2, A1 and A2 segments are patent. There is mild plaque within the bilateral cavernous carotids. Th ere is moderate stenosis of the distal left M1 segment. There is moderate stenosis of the left P2 seg ment. No intraluminal thrombus is noted. No abrupt vessel cut off is identified. There is no dissecti on within the major intracranial vessels. IMPRESSION: 1. No intraluminal thrombus or abrupt vessel cut off. 2. Moderate multifocal stenoses within the intracranial vessels, as described above. ACT 112: Negative or not required by law. Electronically signed by: William Rosales M.D. 05/18/2020 1:01 PM
[2020-05-18 13:06] LABS: Basophils # (auto) 0.01 K/uL (0-0.2); Basophils % (auto) 0.2 %; Eosinophils # (auto) 0.14 K/uL (0-0.5); Eosinophils % (auto) 2.2 %; Hemoglobin 11.8 g/dL (12.0-16.0); Lymphocytes # (auto) 2.42 K/uL (1.2-3.4); Lymphocytes % (auto) 37.5 %; Mean Corpuscular Hemoglobin 29.6 pg (25-34); Mean Corpuscular Hgb Conc 34.7 g/dL (32-36); Mean Corpuscular Volume 85.4 fL (80-100); Mean Platelet Volume 10.3 fL (7.4-10.4); Monocytes # (auto) 0.54 K/uL (0.11-0.59); Monocytes % (auto) 8.4 %; Neutrophils # (auto) 3.34 K/uL (1.4-6.5); Neutrophils % (auto) 51.7 %; Platelet Count 215 K/uL (130-400); RDW Coefficient of Variation 12.9 % (11.5-14.5); RDW Standard Deviation 40.5 fL (36.4-46.3); Red Blood Count 3.98 M/uL (4.2-5.4); White Blood Count 6.45 K/uL (4.8-10.8)
[2020-05-18] MEDS ORDERED: ACETAMINOPHEN 1,000 MG/100 ML VIAL IV STA (13:09)
[2020-05-18 13:11] LABS: iSTAT Hemoglobin 11.2 g/dl (12.0-16.0); iSTAT Ionized Calcium 1.22 mmol/l (1.12-1.32); iSTAT Potassium 3.7 mmol/L (3.3-5.0)
[2020-05-18 13:16] LABS: INR 1.1 (0.9-1.1); Partial Thromboplastin Time 29.2 Seconds (21.0-31.0); Prothrombin Time 11.5 Seconds (9.0-12.0)
[2020-05-18 13:24] LABS: Alanine Aminotransferase 20 U/L (12-78); Albumin Level 3.2 gm/dl (3.4-5.0); Aspartate Aminotransferase 16 U/L (15-37); BUN Creatinine Ratio 11.3 (10-20); Blood Urea Nitrogen 22 mg/dl (7-18); Carbon Dioxide 26 mmol/L (21-32); Chloride 100 mmol/L (98-107); Creatinine Clr Calc Pharmacy 20.4 ml/min; Est GFR (African American) 29.4; Est GFR (Non-African American) 25.4; Glucose 96 mg/dl (70-99); Magnesium 1.9 mg/dl (1.8-2.4); Potassium 3.7 mmol/L (3.5-5.1); Sodium 133 mmol/L (136-145)
[2020-05-18 13:29] LABS: Alkaline Phosphatase 59 U/L (45-117); Bilirubin,Total 0.6 mg/dl (0.2-1); Globulin 3.2 gm/dl (2.5-4.0); Total Protein 6.4 gm/dl (6.4-8.2); Troponin I < 0.015 ng/ml (0-0.045)
[2020-05-18 13:56] LABS: Appearance Urine Clear (Clear); Bilirubin Urine Negative (Negative); Blood Urine Negative (Negative); Color Urine Yellow; Glucose Urine UA Negative (Negative); Ketones Urine Negative (Negative); Leukocyte Esterase Urine Negative (Negative); Nitrite Urine Negative (Negative); Protein Urine Negative (Negative); Urobilinogen Urine Negative (Negative); pH Urine 8.5 (4.5-7.5)
[2020-05-18] MEDS ORDERED: SODIUM CHLORIDE 0.9% 1000ML 1,000 ML IV SCH (14:15)
[2020-05-18] MEDS: MAGNESIUM SULFATE / D5W 1 GM/100 ML BAG IV SCH ×2 (14:23→14:50)
--- NOTE | 2020-05-18 14:23 | XRay Report ---
XR chest 1V portable CLINICAL HISTORY: cva COMPARISON STUDY: Chest radiograph and chest CT August 27, 2017. FINDINGS: Lung volumes are normal. Lungs are clear. There is no pneumothorax or pleural effusion. Car diac size is stable. Mediastinal contours are normal. There is no evidence for pulmonary edema. IMPRESSION: No acute cardiopulmonary findings. ACT 112: Negative or not required by law. Electronically signed by: William Rosales M.D. 05/18/2020 2:21 PM
--- NOTE | 2020-05-18 14:23 | History & Physical Report ---
Date of Service May 18, 2020 Assessment & Plan (1) CVA (cerebral vascular accident): Patient brought in for tele-stroke and MRI will be performed antiplatelet agents will be given and as per tele-stroke recommendations, stroke is the most likely diagnosis at this time given the patient's documented history of A. fib and so recommends MRI and if there are no large or numerous lesions then would recommend beginning apixaban 2.5 mg twice daily given the patient's current renal function. If kidney function returns to normal then could initiate full dose apixaban. Otherwise recommends maintaining magnesium above 2 for neuro protection and continue with hydration. Patient's magnesium on presentation was 1.9 and she was given a gram of magnesium in the emergency department CT head symptoms 05/18/20 IMPRESSION: 1. No acute intracranial hemorrhage or mass effect. 2. 2 cm hypodensity within the left frontal lobe. This probably reflects small vessel disease although an acute infarct could appear similar. CT angiogram head 05/18/2020 impression no intraluminal thrombus or abrupt vessel cutoff. Moderate multifocal stenosis within intracranial vessels CT angiogram neck 05/18/2020 impression mild to moderate atherosclerotic plaque within the proximal bilateral internal carotid arteries without hemodynamically significant stenosis (2) Atrial fibrillation: Reportedly history atrial fibrillation currently in sinus rhythm not on any chronic anticoagulation home meds typically do include aspirin 81 atenolol 50 mg each night this will be continued (3) Chronic GERD: Traditionally uses Zantac (4) Dyslipidemia: Patient reportedly has an allergy to statins revealed atorvastatin pravastatin Zetia rosuvastatin simvastatin (5) HTN (hypertension): Typically using atenolol and Dyazide for blood pressure control atenolol will be continued Dyazide will be held for permissive hypertension (6) Fuchs' corneal dystrophy: Patient traditionally is on prednisolone eyedrops these will be continued (7) DVT prophylaxis: Patient be put on heparin therapy until MRI scan rules out embolic stroke at which time she will switch over to apixaban as recommended by tele-stroke History of Present Illness Primary Care Provider: Frantz Henao MD Patient is a pleasant 74-year-old woman with a past medical history of dyslipidemia, esophageal reflux, HTN, MVP, palpitations, chronic constipation, rosacea, diverticular disease, Fuch's corneal dystrophy s/p bilateral corneal transplant, prior h/o TIA 2010 and atrial fibrillation only on baby aspirin, and insomnia who presents to the emergency department with complaint of headache and feeling confused with sensation of her lips being numb and unable to put her words together which occurred approximately 1.5 hours ago. She is not on a blood thinner for her history of A. fib. To this she reports feeling healthy denies any fevers, chills, cough, congestion, nausea, vomiting, diarrhea, urinary symptoms. In fact she was obtaining preoperative clearance for blepharoplasty later this month. Stroke alert was activated from triage. There are no visual field deficits. However, when attempting to describe picture she does have some mild difficulty and further has difficulty reading words. NIH score given was 2. CT the head was performed upon arrival and demonstrates 2 cm left frontal hypodensity that could represent small vessel disease versus infarct. CTA of the head and neck was performed there is no evidence of large vessel occlusion or cutoffs, though some narrowing of vessels. Case was discussed with Dr. Lui, [facility] tele-stroke and given the patient is still symptomatic within the window for TPA decision to treat will be dependent on the patient's comfort level with a potential disability of being unable to read. Upon Dr. Lui's evaluation the patient's symptoms have mostly returned to baseline and upon further discussion it was agreed that TPA would be deferred as the risk was not worth the benefit in this incident. It is suspected that stroke is the most likely diagnosis at this time given the patient's documented history of A. fib and so recommends MRI and if there are no large or numerous lesions then would recommend beginning apixaban 2.5 mg twice daily given the patient's current renal function. If kidney function returns to normal then could initiate full dose apixaban. Otherwise recommends maintaining magnesium above 2 for neuro protection and continue with hydration. Allergies Allergy/AdvReac Type Severity Reaction Status Date / Time heparin Allergy Intermediate RASH, Verified 07/21/19 10:42 SWELLING, NUMBNESS Ozriqaz-Bkq-Uhn Reductase Allergy Intermediate Hives, rash Verified 07/21/19 10:42 Inhibitor atorvastatin Allergy Unknown hives, Verified 07/21/19 10:42 ezetimibe Allergy Unknown hives Verified 07/21/19 10:42 pravastatin Allergy Unknown hives Verified 07/21/19 10:42 rosuvastatin Allergy Unknown hives Verified 07/21/19 10:42 simvastatin Allergy Unknown hives Verified 07/21/19 10:42 Influenza Virus Vaccines AdvReac Severe severe flu Verified 07/21/19 10:42 Cipro AdvReac Intermediate Nausea, Verified 11/29/17 15:59 weakness ciprofloxacin AdvReac Intermediate Nausea, Verified 07/21/19 10:42 weakness codeine AdvReac Intermediate Vomiting Verified 07/21/19 10:42 clarithromycin AdvReac Unknown nausea and Verified 07/21/19 10:42 vomiting Home Medications Home Medications Medication Instructions Recorded Confirmed Type aspirin [Aspirin Low Dose] 81 mg PO QPM 11/14/18 10/30/19 History cholecalciferol (vitamin D3) 1,000 unit PO BID 11/14/18 10/30/19 History [Vitamin D3] cimetidine [Tagamet HB] 200 mg PO QID PRN 11/14/18 10/30/19 History diphenhydramine HCl [Benadryl 12.5 mg PO HS PRN 11/14/18 10/30/19 History Allergy] magnesium 250 mg PO HS 11/14/18 10/30/19 History melatonin 5 mg PO HS PRN 11/14/18 10/30/19 History omega 8-abs-wgx-fish oil [Fish Oil] 1 cap PO BID 11/14/18 10/30/19 History ranitidine HCl [Zantac] 150 mg PO BID PRN 11/14/18 10/30/19 History sennosides [Senokot] 8.6 mg PO HS 11/14/18 10/30/19 History prednisolone acetate 1 % eye 1 drops OP DAILY ml 07/21/19 10/30/19 History drops,suspension atenolol 100 mg tablet 50 mg PO QPM #90 tab 10/20/19 10/30/19 Rx meloxicam 7.5 mg tablet 7.5 mg PO BID PRN tab 10/30/19 10/30/19 History potassium citrate 10 mEq (1,080 10 meq PO BID #180 tab 04/29/20 Rx mg) tablet,extended release triamterene 37.5 1 cap PO QPM #90 cap 04/29/20 Rx mg-hydrochlorothiazide 25 mg capsule methylprednisolone 4 mg tablets in See Rx Instructions .ROUTE 05/03/20 05/03/20 Rx a dose pack .COMPLEX #21 ea Past Med/Surg History Medical History (Updated 05/18/20 @ 14:25 by Adarsh Barragan MD) Atrial fibrillation PERIODIC EPISODES. NO CARDIOVERSION. FOLLOWS WITH DR. BARFIELD. Diverticulitis (Resolved) Pancreatitis (Resolved) ~1999 Peptic ulcer disease (Resolved) H/O DUODENAL ULCER, TAKES TAGAMET PRN. Transient ischemic attack (TIA) (Resolved) ~8 YEARS AGO. TAKES ASPIRIN 81MG DAILY. Surgical History (Updated 03/28/20 @ 14:13 by Frantz Henao MD) History of bilateral tubal ligation (Resolved) History of bowel resection (Resolved) History of cardiac cath (Resolved) NO STENTS (~8 YEARS AGO) History of cataract surgery (Resolved) BILATERAL History of colonoscopy (Resolved 2019) History of corneal transplant (Resolved) History of dilatation and curettage (Resolved) History of hysterectomy (Resolved) YARA WITH BSO Hx of lumpectomy (Resolved) X2 (BENIGN) Social History Preferred Language: Nepali Communication Ability: Effective Director Of Photography Required: No Beliefs That Will Affect Care: None marital status: Current Living Situation: Spouse Feels Safe at Home: Yes Smoking Status: Never smoker Second Hand Exposure: No ; Hx Alcohol Use: No Hx Substance Use: No Review of Systems Review of Systems: Patient has some delay in recalling of certain events in her past history however she is completely returned back to normal at this time Her biggest issues were difficulty interpreting visual information without really having any blurry or double vision, she does still have a mild headache no speech or swallowing issues no chest pain, pressure or palpitations no shortness of breath, cough or wheezes no abdominal pain, nausea or vomiting, diarrhea or constipation no dysuria, hematuria or frequency no focal joint pain or swelling no back pain, CVA tenderness or radicular pain no bruising, bleeding or rashes no focal signs of weakness or numbness or altered sensation She sometimes does suffer from anxiety Physical Exam Physical Exam: The patient appeared well nourished and normally developed. Vital signs as documented. Head exam is normocephalic atraumatic no scleral icterus Neck is without JVD, thyromegaly, or carotid bruits. Lungs are clear to auscultation, no focal loss of breath sounds Cardiac exam, Rhythm is regular.. No murmurs, rubs or gallops. (She is known t o have mitral prolapse but murmur was not auscultated on exam) Abdominal exam reveals normal bowel sounds, soft non tender, no masses Extremities are nonedematous and both pedal pulses are normal. Neurologic exam is alert and oriented, no focal loss of strength or sensation Skin is without bruises or rashes Psychologically is without concerns for anxiety or depression Results & Data Results & Data ([facility]) Vital Signs (Past 12 Hours) Vital Signs Temp Pulse Resp BP Pulse Ox 05/18/20 14:01 63 16 174/94 H 99 05/18/20 13:45 59 L 20 181/82 H 98 05/18/20 13:32 62 20 167/138 H 95 05/18/20 13:16 88 20 155/107 H 99 05/18/20 13:12 70 175/81 H 99 05/18/20 13:00 81 100 05/18/20 12:54 78 194/83 H 97 05/18/20 12:52 85 05/18/20 12:33 97.9 F 64 18 193/89 H 100 Chest x-ray is unremarkable EKG shows sinus rhythm PG Care Time/CCT Total # of Minutes Spent Total Time Spent with Patient: Total time spent is greater than 50% in coordination of care (as documented) at patient's floor/unit and/or counseling patient: Coding Level of Care Code 08882 Initial Inpt Care Lvl 3 Diagnoses CVA (cerebral vascular accident) I63.9 Atrial fibrillation I48.91 Chronic GERD K21.9 Dyslipidemia E78.5 HTN (hypertension) I10 Fuchs' corneal dystrophy H18.51 DVT prophylaxis Z29.9
--- NOTE | 2020-05-18 14:40 | Electrocardiogram Report ---
Test Reason : Blood Pressure : / mmHG Vent. Rate : 069 BPM Atrial Rate : 069 BPM P-R Int : 180 ms QRS Dur : 088 ms QT Int : 388 ms P-R-T Axes : 063 035 025 degrees QTc Int : 415 ms Normal sinus rhythm Nonspecific ST abnormality Abnormal ECG When compared with ECG of 28-AUG-2017 07:34, No significant change was found Confirmed by Crescencio Aparicio ([id number]) on 05/18/2020 2:40:17 PM Referred By: REFERRED SELF Confirmed By:Crescencio Aparicio
[2020-05-18] MEDS ORDERED: KETOROLAC 30 MG/ML VIAL IV ONE (15:13)
[2020-05-18] MEDS ORDERED: KETOROLAC 30 MG/ML VIAL ONE (15:14)
--- NOTE | 2020-05-18 16:50 | Magnetic Resonance Report ---
MRI OF THE BRAIN WITHOUT CONTRAST CLINICAL HISTORY: Evaluate for stroke, embolic COMPARISON STUDY: Head CT and CTA of the head performed earlier today. MRI of the brain December 17. TECHNIQUE: Utilizing a 1.5 Padmaja magnet and dedicated coil, multiplanar, multiecho imaging of the bra in was performed without IV contrast. FINDINGS: There are no foci of restricted diffusion to suggest acute infarct. The possible acute infa rction on head CT performed earlier today was artifactual. No acute intracranial hemorrhage, midline shift or mass effect is present. Ventricular system is normal. The basilar cisterns are patent. There are no extra-axial collections. Flow-voids for the major intracranial vessels are present. There is moderate small vessel disease. Calvarial signal is normal. IMPRESSION: 1. No acute intracranial findings. The possible acute infarct shown on head CT performed earlier to was artifactual. 2. Moderate small vessel disease. ACT 112: Negative or not required by law. Electronically signed by: William Rosales M.D. 05/18/2020 4:48 PM
[2020-05-18] MEDS ORDERED: LORazepam 0.5 MG TAB PO PRN (16:59)
[2020-05-18] MEDS ORDERED: ACETAMINOPHEN 325 MG TAB PO PRN (16:59)
[2020-05-18] MEDS ORDERED: PHARMACIST DISCHARGE MED REC CONSULT PRN (16:59)
[2020-05-18] MEDS ORDERED: ONDANSETRON INJ 2 MG/ML 2 ML VIAL IV PRN (16:59)
[2020-05-18] MEDS ORDERED: ALUMINUM/MAGNESIUM SUSP 30 ML UDC PO PRN (16:59)
[2020-05-18] MEDS ORDERED: diphenhydrAMINE HCl 12.5 MG/5 ML UDC PO PRN (17:06)
[2020-05-18] MEDS ORDERED: MELATONIN 3 MG TAB PO PRN (17:07)
[2020-05-18] MEDS ORDERED: FAMOTIDINE 20 MG TAB PO PRN (17:32)
[2020-05-18] MEDS: SODIUM CHLORIDE 0.9% 1000ML 1,000 ML IV SCH (17:51)
[2020-05-18] MEDS: APIXABAN 2.5 MG TAB PO SCH (20:02)
[2020-05-18] MEDS: DOCUSATE SODIUM 100 MG CAP PO SCH (20:02)
[2020-05-18] MEDS: POTASSIUM CITRATE 10 MEQ TAB PO SCH (20:03)
[2020-05-18] MEDS ORDERED: ATENOLOL 50 MG TABLET PO SCH (21:00)
[2020-05-18] MEDS ORDERED: ASPIRIN 81 MG ECTAB PO SCH (21:00)
[2020-05-18] MEDS ORDERED: HEPARIN SOD 5,000 UNIT/0.5 ML VIAL SQ SCH (21:00)
[2020-05-18] MEDS ORDERED: SENNA 8.6 MG TAB PO SCH (21:00)
[2020-05-18] MEDS ORDERED: MAGNESIUM OXIDE 400 MG TAB PO SCH (21:00)
[2020-05-19] MEDS: SODIUM CHLORIDE 0.9% 1000ML 1,000 ML IV SCH (05:13)
[2020-05-19 06:35] LABS: Basophils # (auto) 0.04 K/uL (0-0.2); Basophils % (auto) 0.6 %; Eosinophils % (auto) 3.2 %; Hematocrit (blood only) 35.4 % (37-47); Hemoglobin 11.9 g/dL (12.0-16.0); Immature Granulocytes # (auto) 0.01 K/uL (0.00-0.02); Immature Granulocytes % (auto) 0.2 %; Lymphocytes # (auto) 1.92 K/uL (1.2-3.4); Lymphocytes % (auto) 30.6 %; Mean Corpuscular Hemoglobin 29.4 pg (25-34); Mean Corpuscular Hgb Conc 33.6 g/dL (32-36); Mean Corpuscular Volume 87.4 fL (80-100); Mean Platelet Volume 10.7 fL (7.4-10.4); Monocytes # (auto) 0.58 K/uL (0.11-0.59); Monocytes % (auto) 9.2 %; Neutrophils # (auto) 3.53 K/uL (1.4-6.5); Neutrophils % (auto) 56.2 %; Platelet Count 203 K/uL (130-400); RDW Coefficient of Variation 13.1 % (11.5-14.5); RDW Standard Deviation 42.4 fL (36.4-46.3); Red Blood Count 4.05 M/uL (4.2-5.4); White Blood Count 6.28 K/uL (4.8-10.8)
[2020-05-19 07:04] LABS: Creatinine Clr Calc Pharmacy 46.8 ml/min; Est GFR (African American) 82.9; Est GFR (Non-African American) 71.5; Magnesium 2.2 mg/dl (1.8-2.4); Potassium 3.3 mmol/L (3.5-5.1)
[2020-05-19] MEDS: APIXABAN 2.5 MG TAB PO SCH (07:55)
[2020-05-19] MEDS: POTASSIUM CITRATE 10 MEQ TAB PO SCH (07:55)
[2020-05-19] MEDS: DOCUSATE SODIUM 100 MG CAP PO SCH (07:55)
[2020-05-19] MEDS ORDERED: prednisoLONE acetate 1% OP SUSP 5 ML BTL OP SCH (09:00)
--- NOTE | 2020-05-19 10:35 | Neurology Consultation ---
Date of Consultation May 19, 2020 Assessment & Plan (1) TIA (transient ischemic attack): Probable TIA localizing to the left cerebral hemisphere. Patient's aphasia, lip numbness, and headache have resolved. A complicated migraine episode is not excluded. Stroke risk factors for this patient include atrial fibrillation, hypertension and dyslipidemia. She has a history of intolerance to multiple medications to address her lipids, however. I agree with the initiation of Eliquis. She may continue with daily low-dose aspirin as well with ongoing monitoring for abnormal bruising or bleeding. No further immediate neurological recommendations. If she does experience recurrent migrainous episodes going forward, would consider additional outpatient neurological assessment. History of Present Illness Reason for Consultation: TIA Requesting Physician: Adarsh Barragan MD Attending Physician: Onofre Le History of Present Illness The patient is a 74-year-old female with a chief complaint of word finding difficulty and numbness along the left side of her lips that began acutely, about 1-1/2 hours prior to her presentation in the emergency department yesterday. She complained of an associated headache as well. Her word finding difficulty persisted during her assessment in the emergency department but was significantly improved. She did have a tele-stroke consultation but ultimately, TPA was not administered due to the minimal nature of her improving deficit. The patient apparently has a history of atrial fibrillation diagnosed many years ago although she has not been prescribed an anticoagulant. She does take a daily low-dose aspirin. She recalls having a similar stroke or TIA-like episode in the past. Past medical history is also notable for hypertension and dyslipidemia. She also indicates a history of migraine although it is been many years since her last migrainous episode. She did report experiencing a moderate headache associated with her symptoms yesterday. Currently, she reports that her symptoms have completely resolved. She denies any residual word finding difficulty, numbness, or headache at this time. An initial CT of the head obtained during her assessment in the emergency department suggested a possible 2 cm hypodensity within the left frontal lobe potentially consistent with an acute infarct or chronic small vessel ischemic change. There was no hemorrhage or acute process. CT angiography of the head and neck was negative for a significant vascular lesion. MRI of the brain negative for acute or subacute infarct. Imaging described in further detail below. The patient has been taking daily low-dose aspirin as an outpatient. She has a history of intolerance to multiple different medications for lipid control. Allergies Allergy/AdvReac Type Severity Reaction Status Date / Time heparin Allergy Intermediate RASH, Verified 05/18/20 14:56 SWELLING, NUMBNESS Aoriixx-Bzy-Dcu Reductase Allergy Intermediate Hives, rash Verified 05/18/20 14:56 Inhibitor atorvastatin Allergy Unknown hives, Verified 05/18/20 14:56 ezetimibe Allergy Unknown hives Verified 05/18/20 14:56 pravastatin Allergy Unknown hives Verified 05/18/20 14:56 rosuvastatin Allergy Unknown hives Verified 05/18/20 14:56 simvastatin Allergy Unknown hives Verified 05/18/20 14:56 Influenza Virus Vaccines AdvReac Severe severe flu Verified 05/18/20 14:56 Cipro AdvReac Intermediate Nausea, Verified 11/29/17 15:59 weakness ciprofloxacin AdvReac Intermediate Nausea, Verified 05/18/20 14:56 weakness codeine AdvReac Intermediate Vomiting Verified 05/18/20 14:56 clarithromycin AdvReac Unknown nausea and Verified 05/18/20 14:56 vomiting Home Medications Home Medications Medication Instructions Recorded Confirmed Type aspirin [Aspirin Low Dose] 81 mg PO QPM 11/14/18 05/18/20 History cholecalciferol (vitamin D3) 1,000 unit PO BID 11/14/18 05/18/20 History [Vitamin D3] cimetidine [Tagamet HB] 200 mg PO QID PRN 11/14/18 05/18/20 History diphenhydramine HCl [Benadryl 12.5 mg PO HS PRN 11/14/18 05/18/20 History Allergy] magnesium 250 mg PO HS 11/14/18 05/18/20 History melatonin 5 mg PO HS PRN 11/14/18 05/18/20 History omega 0-txs-hhq-fish oil [Fish Oil] 1 cap PO BID 11/14/18 05/18/20 History sennosides [Senokot] 8.6 mg PO HS 11/14/18 05/18/20 History prednisolone acetate 1 % eye 1 drops OP DAILY ml 07/21/19 05/18/20 History drops,suspension atenolol 100 mg tablet 50 mg PO QPM #90 tab 10/20/19 05/18/20 Rx potassium citrate 10 mEq (1,080 10 meq PO BID #180 tab 04/29/20 05/18/20 Rx mg) tablet,extended release triamterene 37.5 1 cap PO QPM #90 cap 04/29/20 05/18/20 Rx mg-hydrochlorothiazide 25 mg capsule Patient History Medical History Atrial fibrillation PERIODIC EPISODES. NO CARDIOVERSION. FOLLOWS WITH DR. BARFIELD. Diverticulitis (Resolved) Pancreatitis (Resolved) ~2000 Peptic ulcer disease (Resolved) H/O DUODENAL ULCER, TAKES TAGAMET PRN. Transient ischemic attack (TIA) (Resolved) ~8 YEARS AGO. TAKES ASPIRIN 81MG DAILY. Surgical History History of bilateral tubal ligation (Resolved) History of bowel resection (Resolved) History of cardiac cath (Resolved) NO STENTS (~8 YEARS AGO) History of cataract surgery (Resolved) BILATERAL History of colonoscopy (Resolved 2018) History of corneal transplant (Resolved) History of dilatation and curettage (Resolved) History of hysterectomy (Resolved) YARA WITH BSO Hx of lumpectomy (Resolved) X2 (BENIGN) Family History Other Cancer Hypertension Lung cancer Multiple myeloma Rheumatoid arthritis Stroke Social History Preferred Language: Upper Sorbian Communication Ability: Effective Etl Database Developer Required: No Beliefs That Will Affect Care: None marital status: Current Living Situation: Spouse Other Information That Helps Us Care for You: No Feels Safe at Home: Yes Safety Concerns: Feels Safe At This Time Smoking Status: Never smoker Second Hand Exposure: No ; Hx Alcohol Use: No Hx Substance Use: No Review of Systems Constitutional: no fever and no chills Eyes: no blind spots and no diplopia Ear, Nose, Mouth, Throat: no tinnitus and no hearing loss Respiratory: no cough and no dyspnea Cardiovascular: no chest pain and no palpitations Gastrointestinal: no nausea and no vomiting Genitourinary: no dysuria and no urinary incontinence Musculoskeletal: no myalgia Integumentary: no rash and no lesions Neurologic: as per Subjective / HPI Psychiatric: no depression and no anxiety Hematologic / Lymphatic: no easy bleeding and no easy bruising Exam (Neuro) Constitutional: well developed and well nourished; no acute distress Eyes: normal visual roche by confrontation, PERRL, normal accommodation and EOM intact bilaterally; no fundoscopic abnormality, no nystagmus and no papilledema Cardiovascular: Vessels: normal carotid upstroke; no carotid bruit Neurologic: Oriented to:: Person, Place and Time Memory: Short Term Intact and Remote Intact Attention: Span Intact and Concentration Intact L anguage: Naming Objects and Repeating Phrases Speech Fluency: negative Dysarthria Speech Aphasia: negative Aphasia Fund of Knowledge: Current Events, Past History and Vocabulary Cranial Nerves: Normal II (Visual roche full to confrontation, visual acuity normal), III, IV, (Pupils equal round reactive to light and accommodation, eye movements normal), V (Facial sensation intact), VII (There is no facial droop or weakness), VIII (Hearing intact), IX, X (Palate elevates to midline), XI (Shoulder shrug intact) and XII (Tongue protrudes to midline) Motor Strength: Normal Lower Extremities and Normal Upper Extremities; negative Pronator Drift Motor Tone: Normal Lower Extremities and Normal Upper Extremities Muscle Bulk/Involuntary Movements: No Involuntary Movements; negative Muscle Atrophy Sensation: Light Touch Intact, Pain/Temperature Intact, Vibration Intact and Proprioception Intact Coordination: Normal; negative Limited Balance, Dysdiadochokinesia, Finger-Nose Abnormal and Heel-Felipe Abnormal Deep Tendon Reflexes: Rt Triceps: 2+, Lt Triceps: 2+, Rt Biceps: 2+, Lt Biceps: 2+, Rt Brachioradialis: 2+, Lt Brachioradialis: 2+, Rt Patellar: 2+, Lt Patellar: 2+, Rt Ankle: 2+ and Lt Ankle: 2+ Special Tests: negative Babinski Present Gait: Normal Station and Gait Results & Data ([facility]) Vital Signs (Past 12 Hours) Vital Signs Temp Pulse Pulse Resp BP Pulse Ox 05/19/20 08:12 59 L 05/19/20 07:45 36.5 C 64 19 131/64 96 05/19/20 04:00 36.5 C 63 17 139/77 97 05/19/20 00:00 55 L Laboratory Results WBC 6.28, hemoglobin 11.9, hematocrit 35.4, platelet count 203, sodium 139, potassium 3.3, BUN 17, creatinine 0.82, glucose 98, calcium 9.0, magnesium 2.2, Diagnostic Findings CT of the head revealed a 2 cm hypodensity within the left frontal lobe probably consistent with chronic small vessel disease although an acute infarct cannot be excluded. No hemorrhage. CTA of the head revealed moderate multifocal stenoses within the intracranial vessels. CTA of the neck revealed mild to moderate atherosclerotic plaque within the proximal bilateral internal carotid arteries. MRI of the brain negative for acute or subacute stroke. The finding observed on the previous CT of the head was likely artifactual. There is moderate chronic small vessel ischemic disease. I reviewed the images as well as the radiologist's interpretation of these tests. Electrocardiogram revealed a normal sinus rhythm, 69 bpm. Coding Level of Care Code 25581 Initial Inpt Care Lvl 3 Diagnoses TIA (transient ischemic attack) G45.9
--- NOTE | 2020-05-19 12:04 | XCELERA ---
[id number]
[2020-05-19] MEDS ORDERED: POTASSIUM CHLORIDE 20 MEQ TABCR PO STA (14:11)
--- NOTE | 2020-05-19 14:27 | Discharge Summary ---
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 She is not on a blood thinner for her history of A. fib. To this she reports feeling healthy denies any fevers, chills, cough, congestion, nausea, vomiting, diarrhea, urinary symptoms. In fact she was obtaining preoperative clearance for blepharoplasty later this month. Stroke alert was activated from triage. There are no visual field deficits. However, when attempting to describe picture she does have some mild difficulty and further has difficulty reading words. NIH score given was 2. CT the head was performed upon arrival and demonstrates 2 cm left frontal hypodensity that could represent small vessel disease versus infarct. CTA of the head and neck was performed there is no evidence of large vessel occlusion or cutoffs, though some narrowing of vessels. Case was discussed with Dr. Lui, [facility] tele-stroke and given the patient is still symptomatic within the window for TPA decision to treat will be dependent on the patient's comfort level with a potential disability of being unable to read. Upon Dr. Lui's evaluation the patient's symptoms have mostly returned to baseline and upon further discussion it was agreed that TPA would be deferred as the risk was not worth the benefit in this incident. It is suspected that stroke is the most likely diagnosis at this time given the patient's documented history of A. fib and so recommends MRI and if there are no large or numerous lesions then would recommend beginning apixaban 2.5 mg twice daily given the patient's current renal function. If kidney function returns to normal then could initiate full dose apixaban. Otherwise recommends maintaining magnesium above 2 for neuro protection and continue with hydration. Principal Diagnosis Transient Ischemic Attack (TIA) Discharge Exam Constitutional well developed and well nourished; no acute distress and no altered mental status ENMT external ear and nose normal, oropharynx normal Respiratory normal respiratory effort, lungs clear to auscultation Cardiovascular RRR, no murmur, no edema Heart Sounds: normal S1 and normal S2 Vessels: posterior tibial pulses present and dorsalis pedis pulses present; no JVD Gastrointestinal (Abdomen) normal bowel sounds, soft, nontender, no hepatosplenomegaly Neurologic PERRL, EOMI, accommodation nl, no face palsy, no dysarthria deep tendon reflexes 2+ bilaterally and moves all extremities; no focal motor deficits Motor/Sensory: no pronator drift Psychiatric A+Ox3, euthymic affect Discharge Data Allergies Allergy/AdvReac Type Severity Reaction Status Date / Time heparin Allergy Intermediate RASH, Verified 05/18/20 14:56 SWELLING, NUMBNESS Fupscdi-Czx-Uwq Reductase Allergy Intermediate Hives, rash Verified 05/18/20 14:56 Inhibitor atorvastatin Allergy Unknown hives, Verified 05/18/20 14:56 ezetimibe Allergy Unknown hives Verified 05/18/20 14:56 pravastatin Allergy Unknown hives Verified 05/18/20 14:56 rosuvastatin Allergy Unknown hives Verified 05/18/20 14:56 simvastatin Allergy Unknown hives Verified 05/18/20 14:56 Influenza Virus Vaccines AdvReac Severe severe flu Verified 05/18/20 14:56 Cipro AdvReac Intermediate Nausea, Verified 11/29/17 15:59 weakness ciprofloxacin AdvReac Intermediate Nausea, Verified 05/18/20 14:56 weakness codeine AdvReac Intermediate Vomiting Verified 05/18/20 14:56 clarithromycin AdvReac Unknown nausea and Verified 05/18/20 14:56 vomiting Consultations Consult Neurology - Eduardo Hoyt MD PT, OT, speech therapy Ordered Studies CT angio head w con - FINDINGS: No acute intracranial hemorrhage, midline shift or mass effect is present. Ventricular system is normal. The basilar cisterns are patent. There are no extra axial collections. The bilateral M1, M2, A1 and A2 segments are patent. There is mild plaque within the bilateral cavernous carotids. There is moderate stenosis of the distal left M1 segment. There is moderate stenosis of the left P2 segment. No intraluminal thrombus is noted. No abrupt vessel cut off is identified. There is no dissection within the major intracranial vessels. CT angio neck with con - IMPRESSION: Mild to moderate atherosclerotic plaque within the proximal bilateral internal carotid arteries without hemodynamically significant stenosis. CT head/brain wo con - no acute stroke or ICH. MR brain wo con - no acute stroke. Echocardiogram - * EF 55-60% * mild MR * no thrombus * no shunt with bubble study * normal LV wall motion Hospital Course (1) TIA (transient ischemic attack): Presenting symptoms, resolution of those symptoms, and negative MRI brain for stroke were consistent with TIA. Underwent standard TIA work-up including CTA head/neck, echocardiogram, and telemetry monitoring all of which were negative or normal. She was seen in consult by Dr Hoyt from [facility] who advised anticoagulation given her prior documented history of paroxysmal atrial fibrillation. For that reason Eliquis 5mg BID was initiated. Her low-dose aspirin was discontinued. She was seen by PT/OT/speech therapy during her brief stay. At discharge stroke instructions were given. (2) Atrial fibrillation: History of such. Remained in normal sinus rhythm during her stay. Given her known h/o PAF and now her TIA it was advised to initiate anticoagulation. Eliquis 5mg BID was started. She will remain on atenolol as previous. (3) Chronic GERD: (4) HTN (hypertension): Continue atenolol and Dyazide for blood pressure control. (5) Fuchs' corneal dystrophy: Continue prednisolone eyedrops. (6) Hyperlipidemia: LDL 177 on lipid profile. Unfortunately she is allergic to statins and zetia (hives). Continue lifestyle and dietary modifications. Total Time Total Time Spent Total Time Spent (In Minutes): 35 Total Time Includes: Examination of the Patient, Discharge Planning, Medication Reconciliation and Communication With Other Providers Discharge Plan Discharge Items Patient Disposition: Home - Self-Care Reason For Visit: Concern for stroke Discharge Diagnosis: TIA (Transient Ischemic Attack); stroke ruled out - negative MRI brain Activity: As commented below Activity Comment: gradually increase activities over the next 3-5 days Driving/Machine Use: Resume 3 days after discharge Non-emergency contact: Primary Care Provider Call non-emergency contact if: you have any medication questions, your symptoms worsen and you have a fever Follow-up/Referrals: Frantz Henao MD [Primary Care Provider] - (see Dr Henao within 1 week ) Diet: Heart Healthy Addtl Attending Provider Instructions: You were admitted due to concern of stroke. Your symptoms ultimately resolved and your MRI brain was normal (no stroke seen). Thus, we have characterized this event as a "TIA." A TIA - also known as a transient ischemic attack - is a neurological symptom or set of symptoms that last less than 24 hours and fully resolve. Additionally, the MRI of the brain is typically NORMAL in a TIA. In an actual stroke the MRI shows an area of damage which can lead to permanent deficits. A TIA is NOT the same thing as a stroke but TIA is a big risk factor for future stroke. You were seen by the neurologist, Dr Hoyt, who recommended use of blood thinners because of your previous history of atrial fibrillation. Atrial fibrillation (a.fib) is a well-known risk factor for stroke. In a.fib small blood clots can form in the heart which can be pumped out of the heart, to the brain, and cause a stroke. To reduce the chances of blood clot formation and hence stroke risk we prescribe blood thinners such as eliquis. Eliquis will thin your blood and hopefully prevent blood clot formation. Your echocardiogram was normal. The vessels in your head and neck show atherosclerosis ("hardening of the arteries") but no severe blockages at this time that require intervention. Recommendations - 1. STOP your aspirin for now. Please speak to Dr Henao about the risks/benefits of taking aspirin with eliquis. You may be able to resume aspirin in the future but for now just take eliquis. 2. START your eliquis 5mg twice daily every day, first dose TONIGHT. 3. Eliquis information - Medication Instructions: Your condition is typically treated with an anticoagulant. Anticoagulants will thin your blood to help prevent new clots. * You should take her medication exactly as directed. * Never skip a dose. * Never take a double dose. If you miss a dose, take it as soon as you remember. Call your Primary Care doctor if you experience any of the following: * Chest Pain * Sudden Shortness of Breath * Rapid or pounding heart beat * Fainting * Dizziness * Cough with blood or bloody sputum * Sweating more than normal * Bruises * Heavy or uncontrolled bleeding * Blood in your urine, stool or vomit * Black or tarry stools * Heavy nose bleeds that you can't get to stop * if you experience recurrent nosebleeds on eliquis please seek consultation with your family doctor or an ENT provider right away 4. TIA/stroke information - Risk Factors for Stroke: You can reduce your chances of stroke by working with your medical provider to adopt a healthy lifestyle. Some specific ways to lower your chance of stroke are: * If you are a smoker, now is the time to stop smoking cigarettes * If you are diabetic, improve the control of your blood sugars * Avoid excessive amounts of alcohol * Control high blood pressure * Lose weight if you are overweight * Be sure to lead an active lifestyle * Eat a healthy diet low in salt, cholesterol and fat You should know about other risk factors for stroke that you are unable to control. These include: * Age 55 years or older * Male gender * Certain racial groups: , or / * Family History of Stroke, Mini stroke or Heart Attack * Sickle Cell Disease Who to Call and When: Medical Emergencies: Call 911 immediately if you experience any of the following warning signs and symptoms of Stroke: * Sudden numbness or weakness of the face, arm or leg, especially on one side of the body * Sudden confusion, trouble speaking or understanding * Sudden trouble seeing in one or both eyes * Sudden trouble walking, dizziness, loss of balance or coordination * Sudden severe headache with no cause Do not delay calling 911 if you experience any warning signs or symptoms of a stroke. Delay in seeking medical attention may affect what treatments can be given to you. . Pending Studies at Discharge: No Stand-Alone Forms: Medications to Prevent Stroke, [facility], Smoking Cessation Medications and DC Order Prescriptions: New Eliquis 5 mg tablet 5 mg PO BID Qty: 60 RF: 5 Continued atenolol 100 mg tablet 50 mg PO QPM Qty: 90 RF: 3 potassium citrate 10 mEq (1,080 mg) tablet extended release 10 meq PO BID Qty: 180 RF: 3 triamterene-hydrochlorothiazid 37.5-25 mg capsule 1 cap PO QPM Qty: 90 RF: 3 prednisolone acetate 1 % drops,suspension 1 drops OP DAILY RF: 0 sennosides [Senokot] 8.6 mg Tablet 8.6 mg PO HS RF: 0 diphenhydramine HCl [Benadryl Allergy] 25 mg Tablet 12.5 mg PO HS PRN (Reason: Sleep) RF: 0 magnesium 250 mg Tablet 250 mg PO HS RF: 0 cholecalciferol (vitamin D3) [Vitamin D3] 1,000 unit Capsule 1,000 unit PO BID RF: 0 omega 1-efl-fvt-fish oil [Fish Oil] 1,000 mg (120 mg-180 mg) Capsule 1 cap PO BID RF: 0 melatonin 5 mg Capsule 5 mg PO HS PRN (Reason: Sleep) RF: 0 cimetidine [Tagamet HB] 200 mg Tablet 200 mg PO QID PRN (Reason: Abdominal Pain) RF: 0 Discontinued aspirin [Aspirin Low Dose] 81 mg Tablet,Delayed Release (Dr/Ec) 81 mg PO QPM RF: 0 Discharge Orders: Discharge Order (Routine); Ordered 05/19/20 Ordered By: Onofre Dodd/Other Patient Handouts: What Is a TIA?, ED TIA: Transient Ischemic Attack Admission Data Admit Date/Time: 05/18/20 14:32 Attending Provider: Onofre Le Admit Provider: Adarsh Barragan Primary Care Provider: Frantz Heano Other Providers: Adarsh Barragan ; Eduardo Hoyt Other Interventions: Discharge Summary Assessment (RN) Last Done: 05/19/20 13:53 DC Date/Time DO NOT enter until pt leaves facility: 05/19/20 14:59 Coding Level of Care Code D/C Day Management >30 mins Diagnoses TIA (transient ischemic attack) G45.9 Atrial fibrillation I48.91 Chronic GERD K21.9 HTN (hypertension) I10 Fuchs' corneal dystrophy H18.51 Hyperlipidemia E78.5
[2020-05-19] MEDS ORDERED: STROKE PATIENT DISCHARGE ONE (14:29)
--- NOTE | 2020-05-19 14:36 | Pharmacy Report ---
Pharmacist Stroke Counseling - Date of Service May 19, 2020 - Scope: Pharmacy has been consulted to provide medication discharge counseling for this patient admitted with transient ischemic attack as per the Pharmacist Discharge Counseling for Stroke Patients Protocol. - Medications on Discharge: Home Medications Medication Instructions Recorded Confirmed cholecalciferol (vitamin D3) 1,000 unit PO BID 11/14/18 05/18/20 [Vitamin D3] cimetidine [Tagamet HB] 200 mg PO QID PRN 11/14/18 05/18/20 diphenhydramine HCl [Benadryl 12.5 mg PO HS PRN 11/14/18 05/18/20 Allergy] magnesium 250 mg PO HS 11/14/18 05/18/20 melatonin 5 mg PO HS PRN 11/14/18 05/18/20 omega 7-gnb-twa-fish oil [Fish Oil] 1 cap PO BID 11/14/18 05/18/20 sennosides [Senokot] 8.6 mg PO HS 11/14/18 05/18/20 prednisolone acetate 1 % eye 1 drops OP DAILY ml 07/21/19 05/18/20 drops,suspension New Rx's Medication Instructions Recorded atenolol 100 mg tablet 50 mg PO QPM #90 tab 10/20/19 potassium citrate 10 mEq (1,080 10 meq PO BID #180 tab 04/29/20 mg) tablet,extended release triamterene 37.5 1 cap PO QPM #90 cap 04/29/20 mg-hydrochlorothiazide 25 mg capsule apixaban [Eliquis] 5 mg PO BID #60 tab 05/19/20 - Action: The above medications, specifically ones for stroke treatment/prophylaxis, have been reviewed in detail with the patient and/or patient administrative representative(s) prior to discharge. This includes indication, common adverse reactions, drug interactions, and medication administration. Medication counseling has been employed using the teach-back method to ensure understanding. - Outcome: The patient and/or patient administrative representative(s) have demonstrated understanding of the medications. Additional information: Pt not on statin. She reports allergy to statin meds. Thank you for allowing pharmacy to be involved in the care of this patient. Please call [phone] with any additional questions
[2020-05-20 06:05] LABS: Estimated Average Glucose 114 mg/dl; Hemoglobin A1C 5.6 % (4.5-5.6)
== END 2020-05-19 14:59 | disposition home or self-care (01) | DRG 69 ==
LOC: ED 12:28 → SUATTDRO 14:32 → 2S 14:32

== ENCOUNTER 2025-02-08 15:51 | Inpatient (IN) ==
--- NOTE | 2025-02-08 16:03 | Emergency Department Note ---
Impression & Plan Chest pain, HTN (hypertension) ED Provider Note NAME: BHANU ANN AGE: 79 SEX: F : 1945 ARRIVES VIA: Walk-In INFORMANT: Patient, ED PROVIDER(S): Jamie Macias MD CHIEF COMPLAINT: Chest pain MEDICAL DECISION MAKING: Patient presents to concern for chest pain. IV was established and blood work was obtained. Patient was ordered aspirin and nitro. Upon reassessment the patient was feeling improved. Blood pressure improved and chest pain had resolved. Do believe the patient would benefit from provocative testing. I did speak the on-call hospitalist service JOANN Hinds the patient was admitted to the medicine service. Discussion w/ other healthcare providers: JOANN Hinds PA-C and Dr. Daniels inpatient medicine service Prior /Outside records reviewed: I reviewed part of a cardiology visit from January 15, 2025 from Leah Sanders. Patient was seen for chest pain but thought to be musculoskeletal at that time. Was patient did have an EKG reportedly done at time of visit also had expressed some jaw pain at that time. No acute ST or T wave abnormality. Patient does have prior history of hypertension hypercholesterolemia mild mitral regurgitation cerebrovascular disease SVT TIA. Differential diagnosis: Cardiac ischemia, aortic dissection, pulmonary embolism, pneumothorax, pneumonia, pericarditis, myocarditis, GERD, cholecystitis, pancreatitis, musculoskeletal, as well as other pathologies were considered. Diagnostics, as interpreted by me: ECG: Normal sinus rhythm, rate of 68, normal intervals, normal axis, Q-wave with T wave version in lead III possible slight depressions in the lateral leads. Cardiac monitoring: An order was placed for continuous cardiac monitoring. The monitor shows a rate of 72 with sinus rhythm. Patient was placed on pulse oximetry Medical decision rules: None Imaging studies: I informally interpreted the patient's chest x-ray does not show obvious pneumonia or pneumothorax with formal report to follow. HPI: Patient presents due to concern for chest pains. The patient has had intermittent chest pains over the last 3 months. The patient reports that today it seemed to be worse with associated exertional component. Centralized dull pressure does go to her jaw. The patient states that she was using the vacuum today for about 3 minutes when she developed significant chest pains that were 10 out of 10. Currently rates it at 5 out of 10 but does feel improved. The patient denies any nausea or vomiting. The patient denies any leg swelling or calf pain no history of DVT or PE. Patient reports that her symptoms seem to develop after developing the flu the day before [place]. Patient states that she was started on a new blood pressure medication about 3 weeks ago which she has been taking. Patient denies any cough or fever. Patient was started on losartan. Patient had been on a Medrol Dosepak. Patient also had been on Aleve prior. Patient reportedly has seen another provider and had been on 50 mg of losartan for about 10 days but then ran out of this medication but was restarted on 100. Patient had been on Aleve twice a day to see if that would help with her chest pain. PAST MEDICAL HISTORY: See Below PAST SURGICAL HISTORY: See Below SOCIAL HISTORY: See Below HOME MEDICATIONS: See Below ALLERGIES: See Below VITALS: See Below PHYSICAL EXAMINATION: GENERAL: NAD, non-toxic. EYE EXAM: Normal conjunctiva. PERRL, no anisocoria and EOM's grossly intact w/o pain. OROPHARYNX: Moist mucus membranes, grossly normal dentition. NECK: Trachea midline, no stridor. Supple, no nuchal rigidity, no adenopathy, non-tender. No signs of meningismus. FROM of the neck with good chin to chest and neck extension. LUNGS: Clear to auscultation. Normal chest wall mechanics. HEART: NSR, no MRG. ABDOMEN: Abdomen soft, non-tender, no masses, no rebound or guarding. BACK: No CVA TTP. SKIN: No rashes and no bruising. UPPER EXTREMITIES: Upper extremities are grossly normal. LOWER EXTREMITIES: Grossly normal, no edema. NEURO EXAM: A&O x3, cranial nerves II-XII grossly intact, normal speech, moves all 4 extremities. Past Med/Surg History Problem List (Updated 02/09/25 @ 14:53 by Jamie Macias MD) Chest pain (Acute) Unstable angina Dyspnea Vitamin D toxicity Chest pain Osteopenia Hypercalcemia History of loop recorder ~3 years ago; [place]-F/[place] [facility] [place] Rosacea (Chronic) Lichen sclerosus et atrophicus (Chronic) Fuchs' corneal dystrophy (Chronic) Diverticular disease of colon (Chronic) Chronic GERD (Chronic) Allergic reaction Malignant neoplasm of central portion of left breast in female, estrogen receptor positive (Chronic 06/18/22) Constipation Glaucoma Paroxysmal SVT (supraventricular tachycardia) f/u francisco shah Hyperlipidemia Ductal carcinoma in situ (DCIS) of left breast Recently diagnosed HTN (hypertension) (Chronic) Mitral valve prolapse syndrome (Chronic) MV normal- mild MR on 05/2020 ECHO Medical History Hx of migraines None since having her hysterectomy History of COVID-19 12/2021, pcr pre procedure test, not hosp; no symptoms. Breast cancer, left breast Biopsy on 04/22/22 GERD (gastroesophageal reflux disease) Dyspnea on effort "GETS WINDED WITH STAIRS PAST FEW YEARS" History of colon polyps TIA (transient ischemic attack) History of atrial fibrillation Questionable/possible- since TIA in 2019- no hx of documented a fib per records. On ASA 81mg Reason for loop recorder placement--follows with Dr. Aparicio Per 08/15/21 cardio note- no evidence of atrial fibrillation documented- just 1 brief episode of SVT Pancreatitis ~1999 Peptic ulcer disease H/O DUODENAL ULCER, TAKES TAGAMET PRN. Transient ischemic attack (TIA) x2--last 05/2020--TAKES ASPIRIN DAILY-NO ISSUES SINCE Surgical History Status post left breast lumpectomy (06/18/22) Left Breast Lumpectomy with Sentinal Node Biopsy and Needle Localization(Left) - Jonathan Bailey, History of corneal transplant 2018-BILAT (secondary to Fuchs corneal dystrophy) Hx of lumpectomy X2 (BENIGN) History of bilateral tubal ligation History of dilatation and curettage History of hysterectomy YARA WITH BSO 1979 History of colonoscopy (2019) History of bowel resection Secondary to diverticular disease- 2017 History of cataract surgery BILATERAL History of cardiac cath NO STENTS (~8 YEARS AGO); [place]; f/u francisco shah Family History Father , 60yo Lung cancer Mother , 70yo Breast cancer TIA (transient ischemic attack) Hypertension Sister Bone cancer Hypertension Sister Hypertension MVP (mitral valve prolapse) Brother Pancreatic cancer Hypertension Sister Breast cancer Hypertension Sister Hypertension PVD (peripheral vascular disease) Stroke Brother Hypertension Brother Hypertension Son No problems noted. Daughter No problems noted. Family/Other Breast cancer Maternal Aunt Maternal Cousin Other Cancer Multiple myeloma No family history of adverse response to anesthesia Rheumatoid arthritis Social History Smoking Status: Unknown if ever smoked Second Hand Exposure: Yes (father was a chain smoker); Do You Dip or Chew Tobacco: No; Hx Alcohol Use: No Hx Substance Use: No Preferred Language: Turkish Communication Ability: Effective Visual Impairment: No Limitations Hearing Ability: Normal Human Resources Director Required: No Beliefs That Will Affect Care: None marital status: Current Living Situation: Spouse Current Living Situation Comment: Lives with and grandson current occupational status: retired current occupation: From [employer] How many Children do You have: 2 Feels Safe at Home: Yes Safety Concerns: Feels Safe At This Time Diet: regular caffeine: Yes (1 cup/day) during the past year weight has: remained stable Assistive Devices: None Allergies Allergies Allergy/AdvReac Type Severity Reaction Status Date / Time apixaban [From Eliquis] Allergy Severe hip pain Verified 01/29/25 09:59 atorvastatin Allergy Intermediate hives, Verified 01/29/25 09:59 ezetimibe Allergy Intermediate hives Verified 01/29/25 09:59 heparin Allergy Intermediate RASH, Verified 01/29/25 09:59 SWELLING, NUMBNESS pravastatin Allergy Intermediate hives Verified 01/29/25 09:59 simvastatin Allergy Intermediate hives Verified 01/29/25 09:59 Ehizvqz-OSC-PhI Reductase Allergy Intermediate Hives, rash Verified 01/29/25 09:59 Inhibitor [Cmcqcaf-Yjh-Ckj Reductase Inhibitor] rosuvastatin [From Crestor] Allergy Mild MUSCLE Verified 01/29/25 09:59 ACHES Influenza Virus Vaccines AdvReac Severe severe flu Verified 01/29/25 09:59 ciprofloxacin AdvReac Intermediate Nausea, Verified 01/29/25 09:59 weakness codeine AdvReac Intermediate Vomiting Verified 01/29/25 09:59 clarithromycin AdvReac Mild nausea and Verified 01/29/25 09:59 vomiting Home Meds Home Medications Medication Instructions Recorded Confirmed diphenhydramine HCl 25 mg tablet 12.5 mg PO HS PRN Other 11/14/18 02/08/25 (Benadryl Allergy) magnesium 250 mg tablet 250 mg PO QAM 11/14/18 02/08/25 aspirin 81 mg tablet,delayed 81 mg PO BID 01/08/21 02/08/25 release docusate sodium 50 mg capsule 150 mg PO HS 05/22/22 02/08/25 (Stool Softener) brimonidine 0.2 %-timolol 0.5 % 1 drp ophthalmic (eye) DAILY 09/07/22 02/08/25 eye drops latanoprost 0.005 % eye drops 1 drp ophthalmic (eye) HS 09/07/22 02/08/25 tamoxifen 20 mg tablet 20 mg PO DAILY 04/07/23 02/08/25 prednisolone acetate 1 % eye 1 drp ophthalmic (eye) DAILY 04/19/24 02/08/25 drops,suspension omega 1-fwa-piu-fish oil 1,000 mg 1 cap PO DAILY 09/06/24 02/08/25 (120 mg-180 mg) capsule (Fish Oil) potassium citrate 10 mEq (1,080 10 meq PO BID 02/08/25 02/08/25 mg) tablet,extended release triamterene 37.5 1 cap PO DAILY 02/08/25 02/08/25 mg-hydrochlorothiazide 25 mg capsule Previous Rx's Medication Instructions Recorded famotidine 40 mg tablet 40 mg PO DAILY #30 tabs 09/28/23 atenolol 100 mg tablet 100 mg PO DAILY #90 tabs 08/11/24 losartan 100 mg tablet 100 mg PO DAILY #90 tabs 01/29/25 Results & Data (ED) Vital Signs Vital Signs - 24 hr 02/08/25 15:54 02/08/25 16:20 02/08/25 16:20 Pulse Rate 70 Pulse Rate [Apical] 62 Pulse Rate from SpO2 Sensor Pulse Rhythm Pulse Rhythm [Apical] Regular Pulse Strength [Apical] Normal Respiratory Rate 18 22 Respiratory Effort / Characteristics Non-Labored Non-Labored Spontaneous Respiratory Depth Normal Normal Respiratory Pattern Regular Blood Pressure 214/104 H Blood Pressure [Right Arm] 194/82 H Blood Pressure Mean 140 Blood Pressure Mean [Right Arm] 119 Blood Pressure Position [Right Arm] Lying Pulse Oximetry 99 100 100 Oxygen Delivery Method Room Air Room Air Room Air Sepsis Recent Fever Within 48 Hours No Sepsis New/Unexplained Change in Mental Status No Sepsis Action Taken by Nursing No Action Required 02/08/25 16:20 02/08/25 16:20 02/08/25 16:24 Pulse Rate 60 61 Pulse Rate [Apical] Pulse Rate from SpO2 Sensor Pulse Rhythm Regular Pulse Rhythm [Apical] Pulse Strength [Apical] Respiratory Rate 22 Respiratory Effort / Characteristics Respiratory Depth Respiratory Pattern Blood Pressure 194/82 H Blood Pressure [Right Arm] Blood Pressure Mean 132 Blood Pressure Mean [Right Arm] Blood Pressure Position [Right Arm] Pulse Oximetry 100 Oxygen Delivery Method Room Air Sepsis Recent Fever Within 48 Hours Sepsis New/Unexplained Change in Mental Status Sepsis Action Taken by Nursing 02/08/25 16:50 02/08/25 16:50 02/08/25 16:57 Pulse Rate Pulse Rate [Apical] Pulse Rate from SpO2 Sensor 58 L Pulse Rhythm Pulse Rhythm [Apical] Pulse Strength [Apical] Respiratory Rate Respiratory Effort / Characteristics Respiratory Depth Respiratory Pattern Blood Pressure 163/86 H 163/86 H Blood Pressure [Right Arm] Blood Pressure Mean 102 102 Blood Pressure Mean [Right Arm] Blood Pressure Position [Right Arm] Pulse Oximetry 99 Oxygen Delivery Method Sepsis Recent Fever Within 48 Hours Sepsis New/Unexplained Change in Mental Status Sepsis Action Taken by Nursing 02/08/25 17:00 02/08/25 17:15 02/08/25 17:15 Pulse Rate Pulse Rate [Apical] Pulse Rate from SpO2 Sensor 57 L Pulse Rhythm Pulse Rhythm [Apical] Pulse Strength [Apical] Respiratory Rate Respiratory Effort / Characteristics Respiratory Depth Respiratory Pattern Blood Pressure 162/78 H 162/75 H Blood Pressure [Right Arm] Blood Pressure Mean 116 123 Blood Pressure Mean [Right Arm] Blood Pressure Position [Right Arm] Pulse Oximetry 100 Oxygen Delivery Method Sepsis Recent Fever Within 48 Hours Sepsis New/Unexplained Change in Mental Status Sepsis Action Taken by Nursing 02/08/25 17:30 02/08/25 17:45 02/08/25 18:00 Pulse Rate Pulse Rate [Apical] 58 L Pulse Rate from SpO2 Sensor Pulse Rhythm Pulse Rhythm [Apical] Regular Pulse Strength [Apical] Normal Respiratory Rate 18 Respiratory Effort / Characteristics Non-Labored Spontaneous Respiratory Depth Normal Respiratory Pattern Regular Blood Pressure 161/112 H 165/83 H Blood Pressure [Right Arm] 194/86 H Blood Pressure Mean 128 126 Blood Pressure Mean [Right Arm] 122 Blood Pressure Position [Right Arm] Lying Pulse Oximetry 100 Oxygen Delivery Method Room Air Sepsis Recent Fever Within 48 Hours Sepsis New/Unexplained Change in Mental Status Sepsis Action Taken by Nursing 02/08/25 18:00 Pulse Rate 60 Pulse Rate [Apical] Pulse Rate from SpO2 Sensor Pulse Rhythm Pulse Rhythm [Apical] Pulse Strength [Apical] Respiratory Rate 25 H Respiratory Effort / Characteristics Respiratory Depth Respiratory Pattern Blood Pressure 194/86 H Blood Pressure [Right Arm] Blood Pressure Mean 132 Blood Pressure Mean [Right Arm] Blood Pressure Position [Right Arm] Pulse Oximetry 100 Oxygen Delivery Method Sepsis Recent Fever Within 48 Hours Sepsis New/Unexplained Change in Mental Status Sepsis Action Taken by Correction Medications Current Medication List: was personally reviewed by me Laboratory Data Attestation: I reviewed the patient's lab results. 02/09/25 06:28 02/09/25 06:28 Lab Results 02/08/25 Range/Units 16:18 WBC 7.90 (4.8-10.8) K/ul RBC 4.09 L (4.20-5.40) M/uL Hgb 12.4 (12.0-16.0) g/dl Hct 35.1 L (37.0-47.0) % MCV 85.8 (80.0-100.0) fL MCH 30.3 (25.0-34.0) pg MCHC 35.3 (32.0-36.0) g/dL RDW Std Deviation 38.3 (36.4-46.3) fL RDW Coeff of Edel 12.1 (11.5-14.5) % Plt Count 224 (130-400) K/uL MPV 10.7 (9.4-12.4) fL Immature Gran % (Auto) 0.3 % Neut % (Auto) 57.1 % Lymph % (Auto) 27.8 % Frontier % (Auto) 12.4 % Eos % (Auto) 1.8 % Baso % (Auto) 0.6 % Neut # (Auto) 4.51 (1.40-6.50) K/uL Lymph # (Auto) 2.20 (1.20-3.40) K/uL Frontier # (Auto) 0.98 H (0.11-0.59) K/uL Eos # (Auto) 0.14 (0.00-0.50) K/uL Baso # (Auto) 0.05 (0.00-0.20) K/uL Immature Gran # (Auto) 0.02 (0.01-0.20) K/uL Sodium 128 L (136-145) mmol/L Potassium 3.3 L (3.5-5.1) mmol/L Chloride 92 L (98-107) mmol/L Carbon Dioxide 30 (21-32) mmol/L Anion Gap 6 (3-11) BUN 16 (6-23) mg/dl Creatinine 0.84 (0.6-1.2) mg/dl Est Cr Clr Drug Dosing 44.5 ml/min eGFR 71.53 BUN/Creatinine Ratio 19.0 (10-20) Glucose 96 (70-99(Fasting)) mg/dl Calcium 10.1 (8.6-10.3) mg/dl Total Bilirubin 0.4 (0.2-1.0) mg/dl AST 24 (13-39) U/L ALT 18 (7-52) U/L Alkaline Phosphatase 50 (34-104) U/L Troponin I High Sens 4.4 (0-14) pg/ml Total Protein 6.9 (6.0-8.3) gm/dl Albumin 4.1 (3.4-5.0) gm/dl Globulin 2.8 (2.5-4.0) gm/dl Albumin/Globulin Ratio 1.5 (0.9-2) Lipase 46 (11-82) U/L Administered Medications Aspirin (Aspirin 81 Mg Ectab) 81 mg PO BID STUART Stop: 03/11/25 08:59 Last Admin: 02/09/25 08:26 Dose: 81 mg Documented By: AUSTIN Atenolol (Atenolol 50 Mg Tablet) 100 mg PO HS STUART Stop: 03/10/25 21:59 Last Admin: 02/08/25 22:16 Dose: 100 mg Documented By: BRENDEN Famotidine (Famotidine 40 Mg Tablet) 40 mg PO DAILY STUART Stop: 03/11/25 08:59 Last Admin: 02/09/25 08:26 Dose: 40 mg Documented By: AUSTIN Latanoprost (Latanoprost 0.005% Op Soln 2.5 Ml Btl) 1 drops OP HS STUART Stop: 03/10/25 20:59 Last Admin: 02/08/25 22:14 Dose: 1 drops Documented By: BRENDEN Losartan Potassium (Losartan Potassium 50 Mg Tab) 100 mg PO DAILY STUART Stop: 03/11/25 08:59 Last Admin: 02/09/25 08:27 Dose: 100 mg Documented By: AUSTIN Magnesium Oxide (Magnesium Oxide 400 Mg Tab) 400 mg PO QAM STUART Stop: 03/11/25 08:59 Last Admin: 02/09/25 08:26 Dose: 400 mg Documented By: AUSTIN Potassium Citrate (Potassium Citrate 10 Meq Tab) 10 meq PO BID STUART Stop: 03/10/25 20:59 Last Admin: 02/09/25 08:26 Dose: 10 meq Documented By: Admin: 02/08/25 22:14 Dose: 10 meq Documented By: BRENDEN Tamoxifen Citrate (Tamoxifen Citrate 10 Mg Tablet) 20 mg PO DAILY STUART Stop: 03/11/25 08:59 Last Admin: 02/09/25 10:23 Dose: 20 mg Documented By: AUSTIN Co-signed By: LEORA Triamterene/Hydrochlorothiazide (Triamterene/Hctz 37.5/25mg Tab) 1 tab PO DAILY STUART Stop: 03/11/25 08:59 Last Admin: 02/09/25 08:26 Dose: 1 tab Documented By: AUSTIN Discontinued Medications Aspirin (Aspirin Chew 324 Mg) 324 mg PO NOW STA Stop: 02/08/25 16:37 Last Admin: 02/08/25 16:43 Dose: 324 mg Documented By: IFEANYI Enoxaparin Sodium (Enoxaparin Inj 60 Mg/0.6 Ml Syr) 60 mg SQ ONE STA Stop: 02/08/25 18:18 Last Admin: 02/08/25 19:37 Dose: Not Given Documented By: SHAHRIAR Famotidine (Pepcid 20mg Iv Push) 20 mg in 5 mls @ 2.5 mls/min IV NOW STA Stop: 02/08/25 18:54 Last Admin: 02/08/25 19:43 Dose: 2.5 mls/min Documented By: SHAHRIAR Potassium Chloride (K Fredrick / Wtr) 10 meq in 100 mls @ 100 mls/hr IV Q1H STUART Stop: 02/08/25 22:44 Last Infusion: 02/09/25 03:48 Dose: Infused Documented By: Admin: 02/09/25 01:27 Dose: 100 mls/hr Documented By: Infusion: 02/09/25 00:14 Dose: Infused Documented By: Admin: 02/08/25 23:14 Dose: 100 mls/hr Documented By: Infusion: 02/08/25 22:04 Dose: Infused Documented By: Admin: 02/08/25 21:04 Dose: 100 mls/hr Documented By: BRENDEN Ioversol (Optiray 320 125ml) 115 ml IV ONCE ONE Stop: 02/08/25 20:21 Last Admin: 02/08/25 20:20 Dose: 115 ml Documented By: ANGELITA Ioversol (Optiray 320 125ml) 118 ml IV ONCE ONE Stop: 02/09/25 13:35 Last Admin: 02/09/25 13:35 Dose: 118 ml Documented By: FRANCISCO Morphine Sulfate (Morphine Sulfate 2 Mg/Ml Carp) 1 mg IV NOW STA Stop: 02/08/25 18:56 Last Admin: 02/08/25 19:43 Dose: 1 mg Documented By: SHAHRIAR Nitroglycerin (Nitroglycerin Sl 0.4 Mg/Tab Tab) 0.4 mg SL Q5M PRN PRN Reason: Chest Pain Stop: 03/10/25 16:35 Last Admin: 02/08/25 18:36 Dose: 0.4 mg Documented By: Admin: 02/08/25 16:44 Dose: 0.4 mg Documented By: IFEANYI Nitroglycerin (Nitroglycerin 2% Ointment 30gm Tube) 1 inch EXT NOW STA Stop: 02/08/25 17:40 Last Admin: 02/08/25 18:37 Dose: 1 inch Documented By: SHAHRIAR Potassium Chloride (Potassium Chloride Crtab 20 Meq Tabcr) 20 meq PO NOW STA Stop: 02/08/25 19:45 Last Admin: 02/09/25 03:49 Dose: Not Given Documented By: BRENDEN Imaging Data Radiologist's Impression: Chest radiograph, one view History: Chest pain Comparison: 01/29/2025 Findings: Single AP view of the chest performed. No focal consolidation or pleural effusion. No pneumothorax. The cardiomediastinal silhouette is within normal limits. Normal pulmonary vascularity. No evidence for lymphadenopathy. No visualized bony or soft tissue abnormality. Impression: Normal chest radiograph Electronically signed by Moses Evans 02-08-2025 4:51 PM Dictated: 02/08/25 1625 Transcribed: Discharge Plan Visit Data Chief Complaint: Chest Pain Stated Complaint: CHEST PAIN, HIGH BP ED Provider: Jamie Macias Discharge Problem: Chest pain, HTN (hypertension) Patient Disposition: Admitted As Inpatient Discharge Instructions Interventions: ED Discharge Assessment Last Done: 02/08/25 20:09 Discharge Problem: Chest pain Qualifiers: Chest pain type: unspecified Qualified Code(s): R07.9 - Chest pain, unspecified HTN (hypertension) Qualifiers: Hypertension type: unspecified Qualified Code(s): I10 - Essential (primary) hypertension
[2025-02-08 16:35] LABS: Basophils # (auto) 0.05 K/uL (0.00-0.20); Basophils % (auto) 0.6 %; Eosinophils # (auto) 0.14 K/uL (0.00-0.50); Eosinophils % (auto) 1.8 %; Hematocrit (blood only) 35.1 % (37.0-47.0); Hemoglobin 12.4 g/dl (12.0-16.0); Immature Granulocytes # (auto) 0.02 K/uL (0.01-0.20); Immature Granulocytes % (auto) 0.3 %; Lymphocytes % (auto) 27.8 %; Mean Corpuscular Hemoglobin 30.3 pg (25.0-34.0); Mean Corpuscular Hgb Conc 35.3 g/dL (32.0-36.0); Mean Corpuscular Volume 85.8 fL (80.0-100.0); Mean Platelet Volume 10.7 fL (9.4-12.4); Monocytes # (auto) 0.98 K/uL (0.11-0.59); Monocytes % (auto) 12.4 %; Neutrophils # (auto) 4.51 K/uL (1.40-6.50); Neutrophils % (auto) 57.1 %; Platelet Count 224 K/uL (130-400); RDW Coefficient of Variation 12.1 % (11.5-14.5); RDW Standard Deviation 38.3 fL (36.4-46.3); Red Blood Count 4.09 M/uL (4.20-5.40)
[2025-02-08] MEDS: ASPIRIN CHEW 324 MG PO STA (16:43)
[2025-02-08] MEDS: NITROGLYCERIN SL 0.4 MG/TAB TAB SL PRN (16:44)
--- NOTE | 2025-02-08 16:52 | XRay Report ---
Chest radiograph, one view History: Chest pain Comparison: 01/29/2025 Findings: Single AP view of the chest performed. No focal consolidation or pleural effusion. No pneumothorax. The cardiomediastinal silhouette is within normal limits. Normal pulmonary vascularity. No evidence for lymphadenopathy. No visualized bony or soft tissue abnormality. Impression: Normal chest radiograph Electronically signed by Moses Evans 02-08-2025 4:51 PM
[2025-02-08 16:56] LABS: Albumin Globulin Ratio 1.5 (0.9-2); Albumin Level 4.1 gm/dl (3.4-5.0); Bilirubin,Total 0.4 mg/dl (0.2-1.0); Calcium 10.1 mg/dl (8.6-10.3); Creatinine Clr Calc Pharmacy 44.5 ml/min; Globulin 2.8 gm/dl (2.5-4.0); Potassium 3.3 mmol/L (3.5-5.1); Total Protein 6.9 gm/dl (6.0-8.3)
[2025-02-08 17:03] LABS: Troponin I High Sensitivity 4.4 pg/ml (0-14)
--- NOTE | 2025-02-08 17:19 | History & Physical Report ---
Date of Service February 08, 2025 Assessment & Plan (1) Unstable angina: Brady Mccauley is a pleasant 79-year-old female who came in for progressive worsening of her chest pain. Chest pain is mainly with exertion (when she gets up to walk to her mailbox or to the car), but has occurred at rest and can wake her from sleep. This pain has become debilitating. Has been discussed with PCP/cardiology, and may be thought to be secondary to uncontrolled hypertension. However, given debilitating nature of pain with exertion, patient coming in for full cardiac workup. Update: Patient reassessed at bedside at 1925. She has had 2 additional episodes of chest pain, the first occurring when she got up to use the restroom with the assistance of nursing staff. The second episode came shortly after Nitro-Bid was applied to her chest; she rated her chest pain 10/10 after application. Avoid Nitropaste moving forward. At time of reassessment, her chest pain has subsided to a 2/10. Repeat EKG did not show ST elevations, changes in morphology, or evidence of STEMI. Additionally, she is having pain with radiation to the back between the shoulder blades. Did discuss with patient at bedside that if she were to require a chest CTA to rule out aortic abnormalities, this would prevent her from obtaining a catheterization. #Unstable angina Progressive worsening of chest pain with exertion, however this can also occur at rest Aspirin 324 mg p.o. x 1 and nitroglycerin given in the ED Patient has developed severe chest pain with exertion while in the ED Activity: Strict bedrest; external catheter Troponin 4.4->2.7 on arrival; serial troponins Given hours of chest pain and severe chest pain in the emergency department + negative troponins x 2, lower suspicion for cardiac etiology Did discuss this with patient and patient's at bedside, and will obtain chest CTA at this time This was signed out to overnight team EKG on 02/08 without acute changes when can paired to prior on 01/15 Last stress echo 05/10/2023 was negative Cardiology consult appreciated Note: She reports that 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 Daniels for any changes to treatment plan Continuous telemetry monitoring #HTN Patient has also had significant trouble controlling her blood pressure despite being on atenolol, diuretic, and losartan Renal ultrasound ordered to rule out DIMITRY Continue atenolol, losartan, and triamterene-HCTZ for now #Hypokalemia Potassium 3.3 on arrival K riders 10 mEq x 3 Continue potassium supplementation 10 mEq p.o. BID Recheck a.m. K Disposition: Admit to PCU telemetry Full code Heart healthy diet, n.p.o. at midnight on 02/08 VTE PPx: Unable to provide chemical DVT PPx at this time given patient's reported allergies; SCDs History of Present Illness Chief Complaint: Chest pain Primary Care Provider: Frantz Henao MD Parisa is a 79-year-old female with PMH of HTN, DCIS of left breast, paroxysmal SVT, and glaucoma. She presented on 02/08 for progressive, worsening chest pain. She has had intermittent chest pain since around [place] time. This chest pain can occur at rest, but mainly occurs with exertion. Back in November, it would occasionally wake her from sleep. She reports that it is midsternal, but does radiate up to her jaws bilaterally as well as down to her elbows at times. Occasionally it does radiate between her shoulder blades. She can barely walk to the mailbox or on her vacuum before it begins hurting. She then sits down, and the pain is alleviated after a couple minutes. She characterizes it as an "aching" pain, and calls a chest heaviness/pressure. When it comes on it is constant, and can last for hours at a time. She rates it 9/10 at worst, and 0/10 at time of admission. Patient has not been taking any additional pain medicine for this. She has seen her PCP and sap project manager regarding the pain, and at times it has been thought to be secondary to high blood pressure. She has been taking atenolol for many years, but was recently started on losartan 2 weeks ago. Despite this, her home blood pressure measurements have read around 170-180 SBP at times. Additionally, her PCP prescribed her prednisone, as it was thought that this pain might be musculoskeletal from her coughing. She has been taking prednisone and Aleve over the past couple weeks, but this has not alleviated the pain. Eating food does not change her pain. No recent change in diet. She does have GERD, but she reports that this feels very different from her than GERD in the past. Patient took her regular morning medicine today; no recent change in medications. She recently finished a course of prednisone 1 week ago. Patient reports she would not be able to perform an exercise stress test. She denies past medical history of heart catheterizations, stents, or MIs. She does have family history of cardiac conditions, her sister has a "bad heart", and recently had an ablation/pacemaker placed. Patient does have a history of TIAs x 3. Before all this started to occur, she was normally a very active person. In regard to blood thinners, she reports that she has had severe reactions to them in the past. When she took Eliquis in the past, she had severe pain in her hips bilaterally. When she took heparin in the past after her bowel surgery (Lovenox), she developed rash, swelling, numbness. Patient is hypertensive at 194/82 at time of admission. ED course: Aspirin 324 mg p.o. Nitroglycerin 0.4 mg SL ROS: Patient endorses midsternal chest pain with radiation to the jaws bilaterally, night-sweats, headache (up the back of her neck), and chest palpitations. Patient denies fever, dizziness, lightheadedness when walking, pleuritic CP, SOB at rest and SHABAZZ, cough, abdominal pain, N/V/D, changes in urinary/bowel habits, or numbness/tingling in the arms. Allergies Allergy/AdvReac Type Severity Reaction Status Date / Time apixaban [From Eliquis] Allergy Severe hip pain Verified 01/29/25 09:59 atorvastatin Allergy Intermediate hives, Verified 01/29/25 09:59 ezetimibe Allergy Intermediate hives Verified 01/29/25 09:59 heparin Allergy Intermediate RASH, Verified 01/29/25 09:59 SWELLING, NUMBNESS pravastatin Allergy Intermediate hives Verified 01/29/25 09:59 simvastatin Allergy Intermediate hives Verified 01/29/25 09:59 Ilrzgnt-BPF-XdM Reductase Allergy Intermediate Hives, rash Verified 01/29/25 09:59 Inhibitor [Vlrijhr-Exd-Jhx Reductase Inhibitor] rosuvastatin [From Crestor] Allergy Mild MUSCLE Verified 01/29/25 09:59 ACHES Influenza Virus Vaccines AdvReac Severe severe flu Verified 01/29/25 09:59 ciprofloxacin AdvReac Intermediate Nausea, Verified 01/29/25 09:59 weakness codeine AdvReac Intermediate Vomiting Verified 01/29/25 09:59 clarithromycin AdvReac Mild nausea and Verified 01/29/25 09:59 vomiting Home Medications Medication Instructions Recorded Confirmed Type diphenhydramine HCl 25 mg tablet 12.5 mg PO HS PRN Other 11/14/18 02/08/25 History (Benadryl Allergy) magnesium 250 mg tablet 250 mg PO QAM 11/14/18 02/08/25 History aspirin 81 mg tablet,delayed 81 mg PO BID 01/08/21 02/08/25 History release docusate sodium 50 mg capsule 150 mg PO HS 05/22/22 02/08/25 History (Stool Softener) brimonidine 0.2 %-timolol 0.5 % 1 drp ophthalmic (eye) DAILY 09/07/22 02/08/25 History eye drops latanoprost 0.005 % eye drops 1 drp ophthalmic (eye) HS 09/07/22 02/08/25 History tamoxifen 20 mg tablet 20 mg PO DAILY 04/07/23 02/08/25 History famotidine 40 mg tablet 40 mg PO DAILY #30 tabs 09/28/23 02/08/25 Rx prednisolone acetate 1 % eye 1 drp ophthalmic (eye) DAILY 04/19/24 02/08/25 History drops,suspension atenolol 100 mg tablet 100 mg PO DAILY #90 tabs 08/11/24 02/08/25 Rx omega 8-qzj-sqe-fish oil 1,000 mg 1 cap PO DAILY 09/06/24 02/08/25 History (120 mg-180 mg) capsule (Fish Oil) losartan 100 mg tablet 100 mg PO DAILY #90 tabs 01/29/25 02/08/25 Rx potassium citrate 10 mEq (1,080 10 meq PO BID 02/08/25 02/08/25 History mg) tablet,extended release triamterene 37.5 1 cap PO DAILY 02/08/25 02/08/25 History mg-hydrochlorothiazide 25 mg capsule Past Med/Surg History Problem List (Updated 02/08/25 @ 19:25 by Malcom Hinds PA-C) Unstable angina Dyspnea Vitamin D toxicity Chest pain Osteopenia Hypercalcemia History of loop recorder ~3 years ago; [place] PL[place]-F/[place] [facility] [place] [facility] [place]ag[place] Rosacea (Chronic) Lichen sclerosus et atrophicus (Chronic) Fuchs' corneal dystrophy (Chronic) Diverticular disease of colon (Chronic) Chronic GERD (Chronic) Allergic reaction Malignant neoplasm of central portion of left breast in female, estrogen receptor positive (Chronic 06/18/22) Constipation Glaucoma Paroxysmal SVT (supraventricular tachycardia) f/[place] dr aparicio, [place] Hyperlipidemia Ductal carcinoma in situ (DCIS) of left breast Recently diagnosed HTN (hypertension) (Chronic) Mitral valve prolapse syndrome (Chronic) MV normal- mild MR on 05/2020 ECHO Medical History Hx of migraines None since having her hysterectomy History of COVID-19 12/2021, pcr pre procedure test, not hosp; no symptoms. Breast cancer, left breast Biopsy on 04/22/22 GERD (gastroesophageal reflux disease) Dyspnea on effort "GETS WINDED WITH STAIRS PAST FEW YEARS" History of colon polyps TIA (transient ischemic attack) History of atrial fibrillation Questionable/possible- since TIA in 2019- no hx of documented a fib per records. On ASA 81mg Reason for loop recorder placement--follows with Dr. Aparicio Per 08/15/21 cardio note- no evidence of atrial fibrillation documented- just 1 brief episode of SVT Pancreatitis ~1999 Peptic ulcer disease H/O DUODENAL ULCER, TAKES TAGAMET PRN. Transient ischemic attack (TIA) x2--last 05/2020--TAKES ASPIRIN DAILY-NO ISSUES SINCE Surgical History Status post left breast lumpectomy (06/18/22) Left Breast Lumpectomy with Sentinal Node Biopsy and Needle Locali zation(Left) - Jonathan Bailey, DO History of corneal transplant 2018-BILAT (secondary to Fuchs corneal dystrophy) Hx of lumpectomy X2 (BENIGN) History of bilateral tubal ligation History of dilatation and curettage History of hysterectomy YARA WITH BSO 1979 History of colonoscopy (2019) History of bowel resection Secondary to diverticular disease- 2017 History of cataract surgery BILATERAL History of cardiac cath NO STENTS (~8 YEARS AGO); [place]; f/u [facility] Family History Father , 60yo Lung cancer Mother , 70yo Breast cancer TIA (transient ischemic attack) Hypertension Sister Bone cancer Hypertension Sister Hypertension MVP (mitral valve prolapse) Brother Pancreatic cancer Hypertension Sister Breast cancer Hypertension Sister Hypertension PVD (peripheral vascular disease) Stroke Brother Hypertension Brother Hypertension Son No problems noted. Daughter No problems noted. Family/Other Breast cancer Maternal Aunt Maternal Cousin Other Cancer Multiple myeloma No family history of adverse response to anesthesia Rheumatoid arthritis Social History Smoking Status: Unknown if ever smoked Second Hand Exposure: Yes (father was a chain smoker); Do You Dip or Chew Tobacco: No; Hx Alcohol Use: No Hx Substance Use: No Preferred Language: Barbadian Communication Ability: Effective Visual Impairment: No Limitations Hearing Ability: Normal Technology Auditor Required: No Beliefs That Will Affect Care: None marital status: Current Living Situation: Spouse Current Living Situation Comment: Lives with and grandson current occupational status: retired current occupation: From [employer] How many Children do You have: 2 Feels Safe at Home: Yes Safety Concerns: Feels Safe At This Time Diet: regular caffeine: Yes (1 cup/day) during the past year weight has: remained stable Assistive Devices: None Review of Systems Review of Systems: See HPI above Physical Exam Physical Exam: General: no acute distress; at bedside; non-toxic appearing; well- nourished; cooperative; SpO2 99% on RA HEENT: normocephalic, atraumatic; no scleral icterus; PERRLA; vision and hearing intact Neck: supple; no lymphadenopathy; trachea midline Skin: warm, dry without signs of tenting; no cyanosis; no rashes, bruising, lesions, or erythema noted CV: chest wall NTP; RRR; S1/S2 normal; no murmurs/rubs/gallops; pulses intact and symmetric at radial, DP, and PT Lungs: no acute respiratory distress; symmetrical chest wall expansion; clear b reath sounds across all lung roche w/o adventitious sounds; no wheezing ABD: Soft, NTP; BS present; no rebound/guarding; no distention MSK: no tics or fasciculations; no edema noted in the LEs b/l, nonerythematous Neuro: A&Ox3; normal mood and affect; fluent speech; no focal deficits; sensation grossly intact in the LEs b/l Results & Data Results & Data Vital Signs (Past 12 Hours) Vital Signs Pulse Pulse Resp BP BP Pulse Ox O2 Del Method 02/08/25 16:24 61 02/08/25 16:20 60 22 100 Room Air 02/08/25 16:20 62 22 194/82 H 100 Room Air 02/08/25 16:20 100 Room Air 02/08/25 15:54 70 18 214/104 H 99 Room Air Laboratory Results Abnormal lab results 02/08/25 Range/Units 16:18 RBC 4.09 L (4.20-5.40) M/uL Hct 35.1 L (37.0-47.0) % Christian # (Auto) 0.98 H (0.11-0.59) K/uL Sodium 128 L (136-145) mmol/L Potassium 3.3 L (3.5-5.1) mmol/L Chloride 92 L (98-107) mmol/L Diagnostic Findings Chest X-Ray 02/08/25 16:05 Chest radiograph, one view History: Chest pain Comparison: 01/29/2025 Findings: Single AP view of the chest performed. No focal consolidation or pleural effusion. No pneumothorax. The cardiomediastinal silhouette is within normal limits. Normal pulmonary vascularity. No evidence for lymphadenopathy. No visualized bony or soft tissue abnormality. Impression: Normal chest radiograph Electronically signed by Moses Evans 02-08-2025 4:51 PM ECG Additional Comments: ECG revealed NSR at 68 bpm; QTc 427 Code Status & VTE Plan Code Status Full code VTE Prophylaxis Plan VTE Prophylaxis will be ordered: Yes Supervising Physician Co-Signing Physician Notes Patient seen and examined, chart reviewed, case discussed with Malcom Hinds PA-C and I agree with the assessment and plan as above except as otherwise noted Labs and images reviewed Parisa is a 79-year-old female with past medical history of hypertension, SVT, DCIS who presents for evaluation of recurrent chest pain. Was seen by cardiology 01/15/2025 for chest pain which was thought to be musculoskeletal at that time. EKG did not show any acute ST/T wave abnormalities. Patient did have associated jaw pain. She reports that she has had continued intermittent chest pain over the last 3 months, is worsened and brought up by exertion, and is a substernal pain that radiates to her jaw. She was walking/vacuuming today when she developed severe onset chest pain 10/10 but radiating to her jaw which has been gradually improving but has not resolved. While in the ER she Babs nitro and full dose aspirin. This seemed to help her pain. High-sensitivity troponin 4.4. EKG is without acute territorial ST segment/T wave changes. Due to recurrent severe chest pain elicited by exertion patient was recommended for admission for further cardiac evaluation. While in the ER patient was hypertensive ranging 140/60471/104. DDx also includes symptomatic hypertension. Blockers are limited by history of bradycardia, and heart rate of 61. Her home atenolol, HCTZtriamterene were continued. She was given Nitropaste for both chest pain and hypertension. At time bedside reevaluation she is pleasant, chest pain is in proved. Blood pressure is improving around systolic 160s. She does have a reproducible sternal chest pain however she notes that this is different in both quality and severity compared to the substernal radiating pain that concerns her. Discussed cardiology. Given progressive consistent anginal symptoms with less and less exertion since Marce now brought out with only few minutes of vacuuming reviewed DSE versus cath. Anticipate for probable cath tomorrow. Will place cardiology consultation and keep n.p.o. at midnight. Chest x-ray is without acute finding. Addendum: Seen multiple times on reassessment. Did have an episode of severe chest pain when walking to the bathroom. This was associated with hypertension. Patient was given nitro and has Nitropaste applied. Pain improved. BP improved 150 s/80s. Pulse remains about 60. Repeat EKG at the time shows no ST/T wave changes, no evidence of STEMI. ? Related to hypertension. This pain mimics the same pain she has been having for the last 2 months intermittently and she reports is the same in quality and severity. Did discuss potential anticoagulation with cardiology. Patient has a reportedly anaphylactic heparin. She reports after subcu heparin she had lip and mouth swelling. Discussed pharmacy no documented cases of her receiving Lovenox/heparin safely in the past. If she needs to be anticoagulated would likely be a bivalirudin candidate. Discussed with cardiology will defer this for now and continue to follow reassessments. If clear evidence of ischemia, either an elevated troponin or EKG changes that would likely progress to cath at that point. She has no mediastinal widening on her CT. BP improving on recheck. Her pain is also identical to what it has been in the last 2 months and has been waxing and waning, but has not been constant. Repeat hs-trop <5, and no EKG changes despite severe pain. w/ HTN, pain radiating to shoulder blades, and lack of ischemic findings --> alternative etiology eval is indicated. CTA-Chest dissection protocol ordered, signed out to overnight team to follow for result PG Care Time/CCT Total # of Minutes Spent Total Time Spent with Patient: Total time spent is greater than 50% in coordination of care (as documented) at patient's floor/unit and/or counseling patient: Coding [place] [address] INT INP/OBS CARE 3/75MIN Patient Type Established History Comprehensive Exam Comprehensive Medical Decision Making High Complexity Diagnoses Unstable angina I20.0
[2025-02-08] MEDS ORDERED: diphenhydrAMINE 50 MG/ML VIAL IV PRN (18:03)
[2025-02-08] MEDS: NITROGLYCERIN 2% OINTMENT 30GM TUBE EXT STA (18:37)
[2025-02-08] MEDS: ENOXAPARIN INJ 60 MG/0.6 ML SYR SQ STA (19:37)
[2025-02-08] MEDS: MoRPHine SULFATE 2 MG/ML CARP IV STA (19:43)
[2025-02-08] MEDS: FAMOTIDINE 20MG IV PUSH 20 MG/5 ML SYR IV STA (19:43)
[2025-02-08] MEDS: OPTIRAY 320 125ml IV ONE (20:20)
[2025-02-08] MEDS ORDERED: ACETAMINOPHEN 325 MG TAB PO PRN (20:47)
[2025-02-08] MEDS ORDERED: NITROGLYCERIN SL 0.4 MG/TAB TAB SL PRN (20:47)
[2025-02-08] MEDS: POTASSIUM CHLORIDE / WTR 10 MEQ/100 ML PLCT IV SCH (21:04)
[2025-02-08] MEDS ORDERED: Nursing to Pharmacy Communication SCH (21:45)
--- NOTE | 2025-02-08 21:54 | CT Scan Report ---
Exam(s): CTA CHEST W/WO Contrast IV Amt: 115 ml optiray 320 EXAM: CT Angiography Chest Without and With Intravenous Contrast CLINICAL HISTORY: Reason for exam: Chest pain with radiation to the back. TECHNIQUE: Axial computed tomographic angiography images of the chest without and with intravenous contrast. CTDI is 19 mGy and DLP is 518.42 mGy-cm. Automated exposure control was utilized for the study. A dose lowering technique was utilized adhering to the principles of ALARA. MIP reconstructed images were created and reviewed. CONTRAST: Patient received 115 ml optiray 320 of IV contrast COMPARISON: No relevant prior studies available. FINDINGS: Pulmonary arteries: Unremarkable. No pulmonary embolism. Aorta: No acute findings. Normal caliber. No dissection. Lungs: No consolidation. Pleural space: No pleural effusion. No pneumothorax. Heart: Unremarkable. Bones/joints: No acute fracture. Soft tissues: Unremarkable. Lymph nodes: Unremarkable. IMPRESSION: Normal chest CTA. No pulmonary embolism. Electronically signed by: Israel Matos MD 02/08/25 21:53 PM
[2025-02-08] MEDS: POTASSIUM CITRATE 10 MEQ TAB PO SCH (22:14)
[2025-02-08] MEDS: LATANOPROST 0.005% OP SOLN 2.5 ML BTL OP SCH (22:14)
[2025-02-08] MEDS: ATENOLOL 50 MG TABLET PO SCH (22:16)
--- NOTE | 2025-02-09 | Ultrasound Report ---
Exam(s): US RENAL EXAM: US Duplex Arterial/Venous of the Kidneys, Complete CLINICAL HISTORY: Reason for exam: DIMITRY r/o. TECHNIQUE: Real-time duplex ultrasound scan of the kidneys integrating B-mode two- dimensional vascular structure, Doppler spectral analysis and color flow Doppler imaging. COMPARISON: No relevant prior studies available. FINDINGS: Aorta: Velocity 75 cm/s. Right renal arteries: Peak systolic velocity 78 cm/s. Left renal arteries: Peak systolic velocity 207 cm/s near the origin. Renal veins: Unremarkable. The renal veins are patent bilaterally. Right kidney: Unremarkable as visualized. No hydronephrosis. Left kidney: Unremarkable as visualized. No hydronephrosis. IMPRESSION: 1. Elevated velocity in the proximal left renal artery of 207 cm/s (60- 99% stenosis). 2. No stenosis in the right renal artery. Electronically signed by: Israel Matos MD 02/08/25 23:59 PM
[2025-02-09] MEDS: POTASSIUM CHLORIDE CRTAB 20 MEQ TABCR PO STA (03:49)
[2025-02-09 06:46] LABS: Basophils # (auto) 0.05 K/uL (0.00-0.20); Basophils % (auto) 0.8 %; Eosinophils # (auto) 0.11 K/uL (0.00-0.50); Eosinophils % (auto) 1.7 %; Hematocrit (blood only) 32.3 % (37.0-47.0); Hemoglobin 11.3 g/dl (12.0-16.0); Immature Granulocytes # (auto) 0.02 K/uL (0.01-0.20); Immature Granulocytes % (auto) 0.3 %; Lymphocytes # (auto) 1.46 K/uL (1.20-3.40); Mean Corpuscular Hemoglobin 30.1 pg (25.0-34.0); Mean Corpuscular Volume 86.1 fL (80.0-100.0); Mean Platelet Volume 10.2 fL (9.4-12.4); Monocytes # (auto) 0.86 K/uL (0.11-0.59); Monocytes % (auto) 12.9 %; Neutrophils # (auto) 4.15 K/uL (1.40-6.50); Neutrophils % (auto) 62.3 %; Platelet Count 180 K/uL (130-400); RDW Coefficient of Variation 12.7 % (11.5-14.5); RDW Standard Deviation 40.2 fL (36.4-46.3); Red Blood Count 3.75 M/uL (4.20-5.40); White Blood Count 6.65 K/ul (4.8-10.8)
[2025-02-09 07:07] LABS: Calcium 9.6 mg/dl (8.6-10.3); Creatinine Clr Calc Pharmacy 47.4 ml/min; Magnesium 1.8 mg/dl (1.7-2.4); Potassium 4.2 mmol/L (3.5-5.1)
[2025-02-09] MEDS ORDERED: ENOXAPARIN INJ 60 MG/0.6 ML SYR SQ SCH (08:00)
[2025-02-09] MEDS: MAGNESIUM OXIDE 400 MG TAB PO SCH (08:26)
[2025-02-09] MEDS: TRIAMTERENE/HCTZ 37.5/25MG TAB PO SCH (08:26)
[2025-02-09] MEDS: ASPIRIN 81 MG ECTAB PO SCH (08:26)
[2025-02-09] MEDS: FAMOTIDINE 40 MG TABLET PO SCH (08:26)
[2025-02-09] MEDS: LOSARTAN POTASSIUM 50 MG TAB PO SCH (08:27)
[2025-02-09] MEDS ORDERED: ATENOLOL 50 MG TABLET PO SCH (09:00)
--- NOTE | 2025-02-09 09:10 | Electrocardiogram Report ---
Test Reason : Blood Pressure : */* mmHG Vent. Rate : 68 BPM Atrial Rate : 68 BPM P-R Int : 170 ms QRS Dur : 84 ms QT Int : 402 ms P-R-T Axes : 47 14 28 degrees QTcB Int : 427 ms Normal sinus rhythm Minimal voltage criteria for LVH, may be normal variant ( R in aVL ) Abnormal ECG When compared with ECG of 15-Jan-2025 09:25, No significant change was found Confirmed by Crescencio Aparicio ([id number]) on 02/09/2025 9:09:41 AM Referred By: Confirmed By: Crescencio Aparicio
[2025-02-09] MEDS: TAMOXIFEN CITRATE 10 MG TABLET PO SCH (10:23)
[2025-02-09] MEDS ORDERED: METOPROLOL TARTRATE 1 MG/ML VIAL IV ONE (11:56)
[2025-02-09] MEDS ORDERED: ATROPINE SULFATE 0.1 MG/ML 10ML SYR IV ONE (11:56)
[2025-02-09] MEDS ORDERED: DOBUTamine HCL 12.5 MG/ML 20 ML VIAL IV ONE (11:56)
--- NOTE | 2025-02-09 11:56 | Cardiology Consultation ---
Date of Consultation February 09, 2025 Assessment & Plan (1) Chest pain: -Constant chest discomfort for months and is not cardiac in origin. -Exertional component will be further investigated with a dobutamine stress test. -Comforting that her high-sensitivity troponins are normal, as is her EKG. -No coronary calcifications on CT scanning of the chest. (2) HTN (hypertension): -Adequate control currently. -Vascular surgery to comment on her abnormal renal ultrasound. (3) Paroxysmal SVT (supraventricular tachycardia): -No recent recurrence. History of Present Illness Attending Physician: Flory Stephen MD History of Present Illness Mrs. Grant is a 79-year-old female admitted yesterday with a chest pain syndrome. This consultation was ordered to assist in her cardiac management. Of note, the patient is well-known to me from the outpatient setting. The patient's recent history began in late October in early November when she had an episode of "the flu." She was seen in my office on November 24 without complaints of chest discomfort. However, she was seen on November 17 by Leah Sanders PA-C with complaints of chest discomfort, exertional dyspnea, and jaw pain. Her chest discomfort was felt to be musculoskeletal as she was tender to palpation on examination. Her exertional dyspnea was maybe slightly worse than usual. Her jaw pain only lasts 3 to 5 seconds and therefore, not felt to be cardiac. She did take a course of nonsteroidal anti-inflammatory drugs with little change in her symptoms. She was seen by Dr. Henao on January 29 and was started on a Medrol Dosepak for her musculoskeletal chest discomfort. This did not significantly change her symptoms. She explains to me that she has a constant, substernal chest pressure which has been present for several months. When she is physically active, or if her blood pressure elevates, she notices an increase in her discomfort. There are no other associated symptoms such as shortness of breath, nausea, vomiting, or diaphoresis. We have discussed her normal EKG, normal high-sensitivity troponins, and the fact there are no calcifications on her coronaries by CT scanning. We will proceed with a dobutamine stress test for completeness. Of note, she has been under a great deal of emotional stress caring for her chronically ill sister and brother. Past medical and surgical history 1. Hypertension 2. Hypercholesterolemia 3. Mild mitral regurgitation 4. Paroxysmal SVT 5. TIAJuly 2019 6. Cerebrovascular diseasemild plaquing, May 2020 7. Loop recorderAugust 2019 through December 2023, no arrhythmia 8. GERD 9. Hiatal hernia 10. Diverticulosis 11. Left breast carcinomaAugust 2021, XRT 12. Bowel [id number] 13. Tubal ligation 14. D&C 15. 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 Bilateral corneal transplant Social history and lives with her No tobacco or alcohol Family history Father at 60 from lung carcinoma Mother at 70 from breast carcinoma No early coronary artery disease Review of systems A 10 point review of system was undertaken and negative except that described above. Allergies Allergy/AdvReac Type Severity Reaction Status Date / Time apixaban [From Eliquis] Allergy Severe hip pain Verified 01/29/25 09:59 atorvastatin Allergy Intermediate hives, Verified 01/29/25 09:59 ezetimibe Allergy Intermediate hives Verified 01/29/25 09:59 heparin Allergy Intermediate RASH, Verified 01/29/25 09:59 SWELLING, NUMBNESS pravastatin Allergy Intermediate hives Verified 01/29/25 09:59 simvastatin Allergy Intermediate hives Verified 01/29/25 09:59 Fxicwut-UUS-RgV Reductase Allergy Intermediate Hives, rash Verified 01/29/25 09:59 Inhibitor [Demifkh-Bzi-Pyn Reductase Inhibitor] rosuvastatin [From Crestor] Allergy Mild MUSCLE Verified 01/29/25 09:59 ACHES Influenza Virus Vaccines AdvReac Severe severe flu Verified 01/29/25 09:59 ciprofloxacin AdvReac Intermediate Nausea, Verified 01/29/25 09:59 weakness codeine AdvReac Intermediate Vomiting Verified 01/29/25 09:59 clarithromycin AdvReac Mild nausea and Verified 01/29/25 09:59 vomiting Home Medications Medication Instructions Recorded Confirmed Type diphenhydramine HCl 25 mg tablet 12.5 mg PO HS PRN Other 11/14/18 02/08/25 History (Benadryl Allergy) magnesium 250 mg tablet 250 mg PO QAM 11/14/18 02/08/25 History aspirin 81 mg tablet,delayed 81 mg PO BID 01/08/21 02/08/25 History release docusate sodium 50 mg capsule 150 mg PO HS 05/22/22 02/08/25 History (Stool Softener) brimonidine 0.2 %-timolol 0.5 % 1 drp ophthalmic (eye) DAILY 09/07/22 02/08/25 History eye drops latanoprost 0.005 % eye drops 1 drp ophthalmic (eye) HS 09/07/22 02/08/25 History tamoxifen 20 mg tablet 20 mg PO DAILY 04/07/23 02/08/25 History famotidine 40 mg tablet 40 mg PO DAILY #30 tabs 09/28/23 02/08/25 Rx prednisolone acetate 1 % eye 1 drp ophthalmic (eye) DAILY 04/19/24 02/08/25 History drops,suspension atenolol 100 mg tablet 100 mg PO DAILY #90 tabs 08/11/24 02/08/25 Rx omega 4-fus-goq-fish oil 1,000 mg 1 cap PO DAILY 09/06/24 02/08/25 History (120 mg-180 mg) capsule (Fish Oil) losartan 100 mg tablet 100 mg PO DAILY #90 tabs 01/29/25 02/08/25 Rx potassium citrate 10 mEq (1,080 10 meq PO BID 02/08/25 02/08/25 History mg) tablet,extended release triamterene 37.5 1 cap PO DAILY 02/08/25 02/08/25 History mg-hydrochlorothiazide 25 mg capsule Patient History Medical History Hx of migraines None since having her hysterectomy History of COVID-19 12/2021, pcr pre procedure test, not hosp; no symptoms. Breast cancer, left breast Biopsy on 04/22/22 GERD (gastroesophageal reflux disease) Dyspnea on effort "GETS WINDED WITH STAIRS PAST FEW YEARS" History of colon polyps TIA (transient ischemic attack) History of atrial fibrillation Questionable/possible- since TIA in 2019- no hx of documented a fib per records. On ASA 81mg Reason for loop recorder placement--follows with Dr. Aparicio Per 08/15/21 cardio note- no evidence of atrial fibrillation documented- just 1 brief episode of SVT Pancreatitis ~1999 Peptic ulcer disease H/O DUODENAL ULCER, TAKES TAGAMET PRN. Transient ischemic attack (TIA) x2--last 05/2020--TAKES ASPIRIN DAILY-NO ISSUES SINCE Surgical History Status post left breast lumpectomy (06/18/22) Left Breast Lumpectomy with Sentinal Node Biopsy and Needle Localization(Left) - Jonathan Bailey DO History of corneal transplant 2018-BILAT (secondary to Fuchs corneal dystrophy) Hx of lumpectomy X2 (BENIGN) History of bilateral tubal ligation History of dilatation and curettage History of hysterectomy YARA WITH BSO 1979 History of colonoscopy (2019) History of bowel resection Secondary to diverticular disease- 2017 History of cataract surgery BILATERAL History of cardiac cath NO STENTS (~8 YEARS AGO); [place]; f/u [facility] Family History Father , 60yo Lung cancer Mother , 70yo Breast cancer TIA (transient ischemic attack) Hypertension Sister Bone cancer Hypertension Sister Hypertension MVP (mitral valve prolapse) Brother Pancreatic cancer Hypertension Sister Breast cancer Hypertension Sister Hypertension PVD (peripheral vascular disease) Stroke Brother Hypertension Brother Hypertension Son No problems noted. Daughter No problems noted. Family/Other Breast cancer Maternal Aunt Maternal Cousin Other Cancer Multiple myeloma No family history of adverse response to anesthesia Rheumatoid arthritis Social History Smoking Status: Unknown if ever smoked Second Hand Exposure: Yes (father was a chain smoker); Do You Dip or Chew Tobacco: No; Hx Alcohol Use: No Hx Substance Use: No Preferred Language: Bulgarian Communication Ability: Effective Visual Impairment: No Limitations Hearing Ability: Normal Surgical Assist Required: No Beliefs That Will Affect Care: None marital status: Current Living Situation: Spouse Current Living Situation Comment: Lives with and grandson current occupational status: retired current occupation: From [employer] How many Children do You have: 2 Feels Safe at Home: Yes Safety Concerns: Feels Safe At This Time Diet: regular caffeine: Yes (1 cup/day) during the past year weight has: remained stable Assistive Devices: None Physical Exam Physical Exam: In general this is a well-developed well-nourished white female in no acute distress. HEENT exam is negative. Neck is supple with full carotid upstrokes. There are no carotid bruits. No JVD. There is no thyromegaly. Cardiovascular exam reveals a regular rhythm with a normal S1 and S2. No S3, S4, or murmurs are noted. Lungs are clear without rales, rhonchi, or wheezes. Abdomen is soft and nontender without bruits. Extremities reveal intact radial artery and posterior tibial pulses bilaterally. There is no peripheral edema. Results & Data Vital Signs (Past 12 Hours) Vital Signs Temp Pulse Resp BP Pulse Ox O2 Del Method 02/09/25 08:00 36.5 C 79 18 145/75 H 96 Room Air 02/09/25 03:03 36.4 C L 67 16 99/51 L 97 Room Air 02/08/25 23:43 36.7 C 61 18 110/74 98 Room Air Laboratory Results CBC notes hemoglobin of 11.3, hematocrit 32.3, white count 6.6, and a platelet count of 180,000. Electrolytes noted sodium of 130, potassium 4.2, chloride 98, bicarb 27, BUN 15, creatinine 0.8, and a glucose of 108. Initial high- sensitivity troponin was 4.4 with follow-up values of 2.7, 6.0, and less than 2.3. Diagnostic Findings EKG notes sinus rhythm and voltage criteria for LVH. CT scan of the chest shows no pulmonary embolism, no aortic dissection, and no coronary calcifications. Chest x-ray is normal. Renal duplex notes an elevated velocity in the proximal left renal artery (207 cm/s). PG Care Time/CCT Total # of Minutes Spent Total Time Spent with Patient: Total time spent is greater than 50% in coordination of care (as documented) at patient's floor/unit and/or counseling patient: Coding Level of Care Code 69425 INT INP/OBS CARE 3/75MIN Diagnoses Chest pain R07.9 HTN (hypertension) I10 Paroxysmal SVT (supraventricular tachycardia) I47.1
[2025-02-09] MEDS: OPTIRAY 320 125ml IV ONE (13:35)
--- NOTE | 2025-02-09 13:41 | XCELERA ---
[id number]
--- NOTE | 2025-02-09 14:13 | Electrocardiogram Report ---
Test Reason : Blood Pressure : */* mmHG Vent. Rate : 80 BPM Atrial Rate : 80 BPM P-R Int : 168 ms QRS Dur : 84 ms QT Int : 396 ms P-R-T Axes : 42 3 20 degrees QTcB Int : 456 ms Normal sinus rhythm Minimal voltage criteria for LVH, may be normal variant ( R in aVL ) Inferior infarct , age undetermined Poor R wave progression, consider anterior [place] vs. lead placement vs. LVH Abnormal ECG When compared with ECG of 08-Feb-2025 16:02, No significant change was found Confirmed by Crescencio Aparicio ([id number]) on 02/09/2025 2:12:57 PM Referred By: Frantz Henao Confirmed By: Crescencio Aparicio
--- NOTE | 2025-02-09 14:29 | Communication Note ---
Date of Service: February 09, 2025 CTA showed mild to moderate main renal artery stenosis and a patent right accessory renal artery. No intervention is recommended for this narrowing. BP needs to be controlled with adjustment of meds if needed. Thank you very much for letting us participate in the care of this patient.
--- NOTE | 2025-02-09 15:11 | CT Scan Report ---
CT angio abd pelvis wo/w con HISTORY: 79 years-old Female renal artery stenosis elevated peak systolic velocities within the left renal artery seen on recent ultrasound. COMPARISON: Doppler study 02/08/2025, CTA chest 02/08/2025 TECHNIQUE: CTA abdomen and pelvis was obtained with and without IV contrast. 3-D coronal and sagittal MIPS were obtained and submitted for review. All measurements were obtained according to NASCET criantonino erstephanie. A dose lowering technique was used consistent with the principals of RU. FINDINGS: CTA: Mild cardiomegaly. Moderate atherosclerosis of the abdominal aorta and branch vessels. No abdomi nal aortic aneurysm or dissection. Normal caliber with patency of the common and external iliac arter ies, common and imaged femoral arteries. Calcific plaque at the origin of the celiac trunk causes mil d stenosis. The superior mesenteric artery is widely patent. Moderate stenosis at the origin of the i nferior mesenteric artery. Patent small accessory renal artery of the inferior pole right kidney. The re is high-grade stenosis at the origin of the bilateral renal arteries secondary to calcified plaque . There is luminal irregularity secondary to the atherosclerosis within the proximal right renal anai ry. Symmetric enhancement of the kidneys. No aneurysm or arterial occlusion identified. CT ABDOMEN/PELVIS: Mild bibasilar atelectasis. No pneumatosis or pneumoperitoneum. Unremarkable splee n, pancreas and adrenal glands. Scattered hepatic cysts. Hyperdense material within the gallbladder l umen likely secondary to vicarious excretion from the recent CTA of the chest. Contrast also noted wi thin the renal collecting systems, ureters and urinary bladder. No hydronephrosis or definite urolith . No lymphadenopathy. Mild distal esophageal wall thickening. No bowel obstruction or bowel wall thickening. Anastomotic perez tures are noted within the sigmoid. Colonic diverticulosis without acute diverticulitis. Noninflamed appendix. No acute fracture. Degenerative changes of the spine. IMPRESSION: 1. Moderate atherosclerosis with high-grade bilateral renal arterial stenosis. 2. No aneurysm, dissection or arterial occlusion identified. 3. No bowel obstruction or bowel wall thickening. 4. Prior sigmoid colon resection. 5. Incidental findings as above. ACT 112: Negative or not required by law. The above report was generated using voice recognition software. It may contain grammatical, syntax o r spelling errors. Electronically signed by: Shakeel Correa M.D. 02/09/2025 3:08 PM
[2025-02-09] MEDS: RANOLAZINE 500 MG ER TAB PO SCH (15:43)
[2025-02-09 16:53] VITALS: BP 132/65; O2SAT 96
[2025-02-09 17:03] VITALS: PULSE 84; RESP 20; TEMP 97.9
--- NOTE | 2025-02-09 17:15 | Hospitalist Progress Note ---
Date of Service February 09, 2025 Assessment & Plan (1) Chest pain: Plan Chest pain No ACS Dobutamine stress echo neg d/w Dr Aparicio - trial of Ranexa Hypertension Continue home regimen, controlled Renal artery stenosis Vascular eval OOB as tolerated DVT Px Admission and Anticipated Discharge Date Admission Date: February 08, 2025 Subjective intermittent chest pain with activity, no lightheadedness or shortness of breath Physical Exam Physical Exam: resting comfortably AAO#3, NON FOCAL Lungs clear to auscultation Heart RRR PA Soft, NT, ND, BS+ Skin no rash Results & Data Results & Data Vital Signs (Past 12 Hours) Vital Signs Temp Pulse Resp BP Pulse Ox O2 Del Method 02/09/25 16:00 36.5 C 87 18 132/65 96 Room Air 02/09/25 11:59 36.5 C 82 20 105/66 98 Room Air 02/09/25 08:00 36.5 C 79 18 145/75 H 96 Room Air PG Care Time/CCT Total # of Minutes Spent Total Time Spent with Patient: Total time spent is greater than 50% in coordination of care (as documented) at patient's floor/unit and/or counseling patient: Coding Level of Care Code 71890 SUB INP/OBS CARE 2/35MIN Diagnoses Chest pain R07.9
--- NOTE | 2025-02-09 17:39 | Discharge Summary ---
Discharge Summary Date of Service February 09, 2025 Principal Dx & Hospital Course #1 = Principal Diagnosis (1) Chest pain: Plan Chest pain No ACS Dobutamine stress echo neg d/w Dr Aparicio - trial of Ranexa Hypertension Continue home regimen, controlled Outpatient monitoring and PCP follow up Renal artery stenosis Vascular consulted - recommend no intervention needed, outpatient follow up OOB as tolerated Admission HPI Per Admitting Provider Parisa is a 79-year-old female with PMH of HTN, DCIS of left breast, paroxysmal SVT, and glaucoma. She presented on 02/08 for progressive, worsening chest pain. She has had intermittent chest pain since around Marce time. This chest pain can occur at rest, but mainly occurs with exertion. Back in November, it would occasionally wake her from sleep. She reports that it is midsternal, but does radiate up to her jaws bilaterally as well as down to her elbows at times. Occasionally it does radiate between her shoulder blades. She can barely walk to the mailbox or on her vacuum before it begins hurting. She then sits down, and the pain is alleviated after a couple minutes. She characterizes it as an "aching" pain, and calls a chest heaviness/pressure. When it comes on it is constant, and can last for hours at a time. She rates it 9/10 at worst, and 0/10 at time of admission. Patient has not been taking any additional pain medicine for this. She has seen her PCP and landscape drafter regarding the pain, and at times it has been thought to be secondary to high blood pressure. She has been taking atenolol for many years, but was recently started on losartan 2 weeks ago. Despite this, her home blood pressure measurements have read around 170-180 SBP at times. Additionally, her PCP prescribed her prednisone, as it was thought that this pain might be musculoskeletal from her coughing. She has been taking prednisone and Aleve over the past couple weeks, but this has not alleviated the pain. Eating food does not change her pain. No recent change in diet. She does have GERD, but she reports that this feels very different from her than GERD in the past. Patient took her regular morning medicine today; no recent change in medications. She recently finished a course of prednisone 1 week ago. Patient reports she would not be able to perform an exercise stress test. She denies past medical history of heart catheterizations, stents, or MIs. She does have family history of cardiac conditions, her sister has a "bad heart", and recently had an ablation/pacemaker placed. Patient does have a history of TIAs x 3. Before all this started to occur, she was normally a very active person. In regard to blood thinners, she reports that she has had severe reactions to them in the past. When she took Eliquis in the past, she had severe pain in her hips bilaterally. When she took heparin in the past after her bowel surgery (Lovenox), she developed rash, swelling, numbness. Patient is hypertensive at 194/82 at time of admission. ED course: Aspirin 324 mg p.o. Nitroglycerin 0.4 mg SL ROS: Patient endorses midsternal chest pain with radiation to the jaws bilaterally, night-sweats, headache (up the back of her neck), and chest palpitations. Patient denies fever, dizziness, lightheadedness when walking, pleuritic CP, SOB at rest and SHABAZZ, cough, abdominal pain, N/V/D, changes in urinary/bowel habits, or numbness/tingling in the arms. Discharge Exam resting comfortably AAO#3, NON FOCAL Lungs clear to auscultation Heart RRR PA Soft, NT, ND, BS+ Skin no rash Discharge Plan Discharge Items Patient Disposition: Home - Self-Care Reason For Visit: UNSTABLE ANGINA Discharge Diagnosis: Atypical chest pain Activity: Resume your previous activity Non-emergency contact: Primary Care Provider Call non-emergency contact if: you have any medication questions Follow-up/Referrals: Frantz Henao MD [Primary Care Provider] - Diet: Regular Addtl Attending Provider Instructions: Follow up with primary care in 5-7 days Monitor your BP at home and review with primary care Pending Studies at Discharge: No Stand-Alone Forms: [employer], Smoking Cessation Medications and DC Order Prescriptions: New ranolazine 500 mg Tablet Extended Release 12 Hr 500 mg PO DAILY Qty: 30 0RF Continued brimonidine-timolol 0.2-0.5 % drops 1 drp ophthalmic (eye) DAILY latanoprost 0.005 % drops 1 drp ophthalmic (eye) HS atenolol 100 mg tablet 100 mg PO DAILY Qty: 90 3RF Rx Instructions: TAKE 1 TABLET DAILY famotidine 40 mg tablet 40 mg PO DAILY Qty: 30 2RF prednisolone acetate 1 % drops,suspension 1 drp ophthalmic (eye) DAILY aspirin 81 mg tablet,delayed release (DR/EC) 81 mg PO BID tamoxifen 20 mg tablet 20 mg PO DAILY losartan 100 mg tablet 100 mg PO DAILY Qty: 90 3RF diphenhydramine HCl [Benadryl Allergy] 25 mg Tablet 12.5 mg PO HS PRN (Reason: Other) magnesium 250 mg Tablet 250 mg PO QAM omega 4-upr-bmt-fish oil [Fish Oil] 1,000 (120-180) mg capsule 1 cap PO DAILY Stool Softener 50 mg Capsule 150 mg PO HS triamterene-hydrochlorothiazid 37.5-25 mg capsule 1 cap PO DAILY potassium citrate 10 mEq (1,080 mg) tablet extended release 10 meq PO BID Rx Instructions: TAKE 1 TABLET TWICE A DAY Discharge Orders: Discharge Order (Routine); Ordered 02/09/25 Ordered By: Flory Stephen Admission Data Admit Date/Time: 02/08/25 18:01 Attending Provider: Flory Stephen Admit Provider: Eliezer Daniels Primary Care Provider: Frantz Henao Other Providers: Eliezer Daniels; Crescencio Aparicio; Jason Arias Hospital Stay Data Consultations 02/08/25 17:30 ED Decision to Admit Stat 02/08/25 18:04 Consult Cardiology Routine 02/09/25 09:56 Consult Vascular Surgery Routine Diagnostic Imagining Performed 02/08/25 17:40 US duplex renal art/vein BI Urgent 02/08/25 19:49 CTA chest dissec wo/w con [CT angio chest dissec wo/w con] Stat 02/09/25 11:36 CTA abd pelvis wo/w con [CT angio abd pelvis wo/w con] Routine Pending Results Patient Have Any Pending Studies at Discharge: No Discharge Instructions Given to Patient (Per Discharging Provider) Follow up with primary care in 5-7 days Monitor your BP at home and review with primary care Total Time Total Time Spent Total Time Spent (In Minutes): 35 min Coding Level of Care Code 80479 INP/OBS DISCH >30 MIN Diagnoses Chest pain R07.9
[2025-02-09] MEDS ORDERED: RANOLAZINE 500 MG ER TAB PO SCH (21:00)
== END 2025-02-09 18:24 | disposition home or self-care (01) | DRG 311 ==
LOC: ED 15:51 → 2E 18:01 → SUATTDRO 18:01 → 2E 20:09